=== PATIENT | male | born 1950 | race Caucasian/White ===

== ENCOUNTER 2023-06-19 09:15 | Outpatient (CLI) | payer OTHER, SELFPAY ==
--- OUTSIDE RECORDS SUMMARY | 2023-06-19 09:25 | XMS_ITS | Continuity of Care Document ---
Author Name [facility] Organization [facility] Care Team Providers Care Electrical Designer Name Role Phone [facility] Unavailable Unavailable Problems Combined list of problems from Department of Defense and Veterans Affairs facilities. It does not include entries that were removed or entered in error. Problem Status Onset Date Problem Type Date of Resolution Comments Source Aortic aneurysm Active Condition [facility] Aortic stenosis Active Condition Jul 19, 2021 Entered By: FELIX SALVADOR Comment: Aortic valve replacement December 28, 2020 [facility] Bradycardia (SNOMED CT 56835194) Active Condition [facility] Chronic ischemic heart disease Active Condition [facility] Diverticular disease (SNOMED CT 810788086) Active Condition [facility] ([facility]) Erectile dysfunction (SNOMED CT 788571103) Active Condition [facility] Essential hypertension Active Condition [facility] Gastroesophageal reflux disease (SNOMED CT 659492992) Active Condition Jun 26, 2011 Entered By: JUSTO KIM Comment: uses omeprazole [facility] ([facility]) Hearing loss Active Condition [facility] History of polyp of colon Active Condition [facility] History of tissue graft aortic valve replacement Active Condition Jun 04, 2023 Entered By: GUIDO MAIN Comment: also had 1 vessel coronary artery bypass with valve replacement [facility] Hypercholesterolemia (SNOMED CT 66523205) Active Condition [place] [facility] Incisional hernia Active Condition [facility] Polyp of colon Active Condition [facility] Colonic Polyps Inactive Condition 09/10/2013 Apr 12, 2008 Entered By: CINDY OSBORN Comment: polypectomies in 2005. Benign [facility] ([facility]) Decreased Libido (ICD-9-CM 799.81) Inactive Condition 06/26/2011 [place] [facility] Male erectile disorder Inactive Condition 09/10/2013 [facility] ([facility]) Tinnitus Inactive Condition 09/10/2013 [facility] ([facility]) Diagnosis: ICD-10-CM E78.2 Mixed hyperlipidemia Active Diagnosis [facility] Diagnosis: ICD-10-CM Z23 Encounter for immunization Active Diagnosis [facility] Diagnosis: ICD-10-CM F52.21 Male erectile disorder Active Diagnosis [facility] Medications Combined list of outpatient medications from Department of Defense and Veterans Affairs facilities.Medications provided include 1) outpatient medications from the last 15 months, and 2) patient-reported medications. Medication Details Route Status Patient Instructions Prescription Expires Prescription Number Last Dispense Date Ordering Provider Order Date Source ASPIRIN 81MG TAB,EC TAKE ONE TABLET BY MOUTH EVERY DAY ORALLY ACTIVE JUSTO KIM 2011 [facility]) COENZYME Q10 CAP/TAB TAKE ONE TABLET BY MOUTH DAILY ORALLY ACTIVE Robles RICHEY 2015 [facility] EZETIMIBE 10MG TAB TAKE ONE TABLET BY MOUTH EVERY DAY FOR CHOLESTE ROL ORALLY ACTIVE 04/25/2024 [id number] 3 ETELVINA,Holger NNE 2022 [facility] EZETIMIBE 10MG TAB TAKE ONE TABLET BY MOUTH EVERY DAY FOR CHOLESTE ROL ORALLY DISCONT INUED (EDIT) 01/25/2024 [id number] 3 Nay BUCK 2022 [facility] EZETIMIBE 10MG TAB TAKE ONE TABLET BY MOUTH EVERY DAY FOR CHOLESTE ROL ORALLY DISCONT INUED 11/01/2023 [id number] 3 Nay BUCK 2022 [facility] FISH OIL 1000MG (500MG DHA/EPA) CAP,ORAL TAKE 1 CAPSULE BY MOUTH EVERY DAY ORALLY ACTIVE CHICHO ZAPATA 2013 [facility] FUROSEMIDE 20MG TAB TAKE ONE TABLET BY MOUTH EVERY DAY NEEDED ORALLY ACTIVE ETELVINA,Holger NNE 2022 [facility] GLUCOSAMINE CAP/TAB TAKE 1500 MG BY MOUTH EVERY DAY ORALLY ACTIVE CHICHO ZAPATA 2013 [facility] METOPROLOL TARTRATE 25MG TAB TAKE ONE TABLET BY MOUTH TWICE A DAY FOR BLOOD PRESSURE ORALLY ACTIVE 04/26/2024 [id number] 3 ETELVINA,Holger NNE 2022 [facility] METOPROLOL TARTRATE 25MG TAB TAKE ONE TABLET BY MOUTH TWICE A DAY FOR BLOOD PRESSURE ORALLY DISCONT INUED 05/23/2023 [id number] 3 Nay BUCK 2021 [facility] METOPROLOL TARTRATE 50MG TAB TAKE ONE-HALF TABLET BY MOUTH TWICE A DAY FOR BLOOD PRESSURE ORALLY DISCONT INUED (EDIT) 05/23/2023 [id number] 2 CANDICE SALVADOR 2021 [facility] OMEPRAZOLE 20MG CAP,EC TAKE ONE CAPSULE BY MOUTH EVERY MORNING ON AN EMPTY STOMACH, AT LEAST 30 MINUTES PRIOR TO A MEAL TO DECREASE STOMACH ACID ORALLY ACTIVE 07/21/2023 [id number] 4 ETELVINA,Holger NNE 2022 [facility] OMEPRAZOLE 20MG CAP,EC TAKE ONE CAPSULE BY MOUTH EVERY MORNING ON AN EMPTY STOMACH, AT LEAST 30 MINUTES PRIOR TO A MEAL TO DECREASE STOMACH ACID ORALLY DISCONT INUED 07/20/2022 [id number] 3 CANDICE SALVADOR 2021 [facility] ROSUVASTATI N CA 40MG TAB TAKE ONE TABLET BY MOUTH EVERY DAY ORALLY ACTIVE 07/21/2023 [id number] 3 ETELVINA,Holger NNE 2022 [facility] ROSUVASTATI N CA 40MG TAB TAKE ONE TABLET BY MOUTH EVERY DAY ORALLY DISCONT INUED 07/20/2022 [id number] 3 CANDICE SALVADOR 2021 [facility] SILDENAFIL CITRATE 100MG TAB TAKE ONE TABLET BY MOUTH EVERY DAY NEEDED FOR ERECTILE DYSFUNCT ION ORALLY ACTIVE 07/21/2023 [id number] 3 ETELVINA,A NNE 2022 [facility] Allergies, Adverse Reactions, Alerts Combined list of allergies from Department of Defense and Veterans Affairs facilities. It does not include entries that were removed or entered in error. Substance Category Reaction Severity Reaction type Status Date Reported Comments Source [facility] Propensity to adverse reactions to drug (finding) active 8 [facility] Immunizations Combined list of available immunizations from the Department of Defense and Veterans Affairs facilities. Immunization Series Date Given Administered By Site Reaction Lot Number CVX Code Drug Nail Cutter Status Comments Source INFLUENZA VACCINE, QUADRIVALENT, ADJUVANTED 2022 205 complet ed [facility] COVID-19 (PFIZER), MRNA, LNP-S, PF, LOKI-SUCROSE, 30 MCG/0.3 ML (AGES 12+ YEARS) 1 2022 FLATNESS,SYED [place] M LEFT DELTO ID [id number] 309 complet ed [facility] COVID-19 (Feedtrace), MRNA, LNP-S, BIVALENT BOOSTER, PF, 30 MCG/0.3 ML DOSE 1 2021 300 complet ed PFR; [id number]; 3 [facility] PNEUMOCOCCAL CONJUGATE PCV20, POLYSACCHARID E [id number] CONJUGATE, ADJUVANT, PF 2021 216 complet ed [facility] INFLUENZA, INJECTABLE, QUADRIVALENT, PRESERVATIVE FREE 2021 150 complet ed [facility] COVID-19 (PFIZER), MRNA, LNP-S, PF, 30 MCG/0.3 ML DOSE 3 2020 208 complet ed PFR; [id number]; 2 [facility] INFLUENZA, INJECTABLE, QUADRIVALENT, PRESERVATIVE FREE 2020 150 complet ed [facility] COVID-19 (Feedtrace), MRNA, LNP-S, PF, 30 MCG/0.3 ML DOSE 2 2020 208 complet ed PFR; [id number]; 1 [facility] COVID-19 (Feedtrace), MRNA, LNP-S, PF, 30 MCG/0.3 ML DOSE 1 2020 208 complet ed PFR; [id number]; 1 [facility] INFLUENZA, UNSPECIFIED FORMULATION 2019 88 complet ed [facility] INFLUENZA VACCINE, QUADRIVALENT, ADJUVANTED 2019 205 complet ed [facility] ZOSTER RECOMBINANT 2 2019 187 complet ed [facility] ZOSTER RECOMBINANT 1 2019 187 complet ed [facility] INFLUENZA, INJECTABLE, QUADRIVALENT, PRESERVATIVE FREE 2018 150 complet ed [facility] INFLUENZA, SEASONAL, INJECTABLE 2018 141 complet ed [facility] INFLUENZA, INJECTABLE, QUADRIVALENT, PRESERVATIVE FREE 2017 150 complet ed Partner: [facility]. Administe red by: [facility] Clinician (NPI=Not Provided) . Partner 3 Lot#: [id number] Mfr: Sanofi Pasteur [facility] INFLUENZA, HIGH DOSE SEASONAL 2016 135 complet ed [facility] INFLUENZA, HIGH DOSE SEASONAL 2015 135 complet ed [facility] INFLUENZA, HIGH DOSE SEASONAL 2015 135 complet ed [facility] PNEUMOCOCCAL CONJUGATE PCV 13 2015 133 complet ed [facility] INFLUENZA, SEASONAL, INJECTABLE 2014 141 complet ed [facility] INFLUENZA, SEASONAL, INJECTABLE 2013 141 complet ed [facility] PNEUMOCOCCAL, UNSPECIFIED FORMULATION 2013 109 complet ed merk and co [id number] [facility] ([facility]) TDAP 2013 115 complet ed glaxosmit hkline [id number] 08/28/15 [facility] ([facility]) PNEUMOCOCCAL POLYSACCHARID E PPV23 2013 33 complet ed [facility] INFLUENZA, UNSPECIFIED FORMULATION 2012 88 complet ed [facility] ([facility]) INFLUENZA, UNSPECIFIED FORMULATION 2011 88 complet ed [facility] ([facility]) INFLUENZA, UNSPECIFIED FORMULATION 2010 88 complet ed [facility] ([facility]) INFLUENZA, UNSPECIFIED FORMULATION 2009 88 complet ed [facility] HEP A, ADULT 2009 52 complet ed [facility] ([facility]) ZOSTER LIVE 2009 121 complet ed [employer] Lot #[id number] Exp. 06/04/2010 [facility] ([facility]) HEP A, ADULT 2009 52 complet ed [facility] ([facility]) INFLUENZA, UNSPECIFIED FORMULATION 2009 [place] RN 88 complet ed [facility] ([facility]) NOVEL INFLUENZA-H1N 1-09, ALL FORMULATIONS 2009 128 complet ed Nov[employer]is [facility] ([facility]) TD (ADULT), 2 LF TETANUS TOXOID, PRESERVATIVE FREE, ADSORBED 2005 09 complet ed [facility] TD(ADULT) UNSPECIFIED FORMULATION 2004 139 complet ed [facility] Results Combined list of recent chemistry, hematology and other laboratory results from Department of Defense and Veterans Affairs, ranging from 15 months to all on record, depending upon the facility. Order Name Results Value Reference Range Date Interpretation Specimen Comments Source ALT/SGPT ALANINE AMINOTRANSF ERASE [ENZYMATIC ACTIVITY/VO LUME] IN SERUM OR PLASMA 19 <55 - 55 07/19 Specimen Type: PLASMA No comment entered. Ordering Provider: THIERRY SALVADOR Report Released Date/Time: Jul 19, 2021 10:51 AM Reporting Lab: [facility] [phone] Performing Lab: [facility] [address] [facility] AST/SGOT ASPARTATE AMINOTRANSF ERASE [ENZYMATIC ACTIVITY/VO LUME] IN SERUM OR PLASMA 19 <34 - 34 07/19 Specimen Type: PLASMA No comment entered. Ordering Provider: THIERRY SALVADOR Report Released Date/Time: Jul 19, 2021 10:51 AM Reporting Lab: [facility] [phone] Performing Lab: [facility] [address] [facility] ALKALINE PHOSPHATAS E ALKALINE PHOSPHATASE [ENZYMATIC ACTIVITY/VO LUME] IN SERUM OR PLASMA 78 40 - 150 07/19 Specimen Type: PLASMA No comment entered. Ordering Provider: THIERRY SALVADOR Report Released Date/Time: Jul 19, 2021 10:51 AM Reporting Lab: [facility] [address] Performing Lab: [facility] [address] [facility] PSA PROSTATE SPECIFIC AG [MASS/VOLUM E] IN SERUM OR PLASMA 2.62 <4.00 - 4.00 07/19 Specimen Type: SERUM No comment entered. Ordering Provider: THIERRY SALVADOR Report Released Date/Time: Jul 19, 2021 10:51 AM Reporting Lab: [facility] [address] Performing Lab: [facility] [address] [facility] LIPID PANEL,NON- FASTING CHOLESTEROL [MASS/VOLUM E] IN SERUM OR PLASMA 164 <199 - 199 07/19 Specimen Type: PLASMA No comment entered. Ordering Provider: THIERRY SALVADOR Report Released Date/Time: Jul 19, 2021 10:51 AM Reporting Lab: [facility] [address] Performing Lab: [facility] [address] [facility] LIPID PANEL,NON- FASTING CHOLESTEROL IN HDL [MASS/VOLUM E] IN SERUM OR PLASMA 51 40 07/19 Specimen Type: PLASMA No comment entered. Ordering Provider: THIERRY SALVADOR Report Released Date/Time: Jul 19, 2021 10:51 AM Reporting Lab: [facility] [address] Performing Lab: [facility] [address] [facility] LIPID PANEL,NON- FASTING CHOLESTEROL IN LDL [MASS/VOLUM E] IN SERUM OR PLASMA BY CALCULATION 88 <99 - 99 07/19 Specimen Type: PLASMA No comment entered. Ordering Provider: THIERRY SALVADOR Report Released Date/Time: Jul 19, 2021 10:51 AM Reporting Lab: [facility] [address] Performing Lab: [facility] [address] [facility] LIPID PANEL,NON- FASTING CHOLESTEROL IN VLDL [MASS/VOLUM E] IN SERUM OR PLASMA BY CALCULATION 25 <29 - 29 07/19 Specimen Type: PLASMA No comment entered. Ordering Provider: THIERRY SALVADOR Report Released Date/Time: Jul 19, 2021 10:51 AM Reporting Lab: [facility] [address] Performing Lab: [facility] [address] [facility] LIPID PANEL,NON- FASTING CHOLESTEROL NON HDL [MASS/VOLUM E] IN SERUM OR PLASMA 113 <129 - 129 07/19 Specimen Type: PLASMA No comment entered. Ordering Provider: THIERRY SALVADOR Report Released Date/Time: Jul 19, 2021 10:51 AM Reporting Lab: [facility] [address] Performing Lab: [facility] [address] [facility] LIPID PANEL,NON- FASTING TRIGLYCERID E [MASS/VOLUM E] IN SERUM OR PLASMA 123 <149 - 149 07/19 Specimen Type: PLASMA No comment entered. Ordering Provider: THIERRY SALVADOR Report Released Date/Time: Jul 19, 2021 10:51 AM Reporting Lab: [facility] [address] Performing Lab: [facility] [address] [facility] BASIC METABOLIC PANEL+MG CREATININE [MASS/VOLUM E] IN SERUM OR PLASMA 1.0 0.7 - 1.2 07/19 Specimen Type: PLASMA No comment entered. Ordering Provider: THIERRY SALVADOR Report Released Date/Time: Jul 19, 2021 10:51 AM Reporting Lab: [facility] [address] Performing Lab: [facility] [address] [facility] BASIC METABOLIC PANEL+MG UREA NITROGEN [MASS/VOLUM E] IN SERUM OR PLASMA 20 8 - 26 07/19 Specimen Type: PLASMA No comment entered. Ordering Provider: THIERRY SALVADOR Report Released Date/Time: Jul 19, 2021 10:51 AM Reporting Lab: [facility] [address] Performing Lab: [facility] [address] [facility] BASIC METABOLIC PANEL+MG GLUCOSE [MASS/VOLUM E] IN SERUM OR PLASMA 91 74 - 100 07/19 Specimen Type: PLASMA No comment entered. Ordering Provider: THIERRY SALVADOR Report Released Date/Time: Jul 19, 2021 10:51 AM Reporting Lab: [facility] [address] Performing Lab: [facility] [address] [facility] BASIC METABOLIC PANEL+MG SODIUM [MOLES/VOLU ME] IN SERUM OR PLASMA 138 136 - 145 07/19 Specimen Type: PLASMA No comment entered. Ordering Provider: THIERRY SALVADOR Report Released Date/Time: Jul 19, 2021 10:51 AM Reporting Lab: [facility] [address] Performing Lab: [facility] [address] [facility] BASIC METABOLIC PANEL+MG POTASSIUM [MOLES/VOLU ME] IN SERUM OR PLASMA 4.6 3.5 - 5.1 07/19 Specimen Type: PLASMA No comment entered. Ordering Provider: THIERRY SALVADOR Report Released Date/Time: Jul 19, 2021 10:51 AM Reporting Lab: [facility] [address] Performing Lab: [facility] [address] [facility] BASIC METABOLIC PANEL+MG CHLORIDE [MOLES/VOLU ME] IN SERUM OR PLASMA 105 98 - 107 07/19 Specimen Type: PLASMA No comment entered. Ordering Provider: THIERRY SALVADOR Report Released Date/Time: Jul 19, 2021 10:51 AM Reporting Lab: [facility] [address] Performing Lab: [facility] [address] [facility] BASIC METABOLIC PANEL+MG CARBON DIOXIDE, TOTAL [MOLES/VOLU ME] IN SERUM OR PLASMA 25 22 - 29 07/19 Specimen Type: PLASMA No comment entered. Ordering Provider: THIERRY SALVADOR Report Released Date/Time: Jul 19, 2021 10:51 AM Reporting Lab: [facility] [address] Performing Lab: [facility] [address] [facility] BASIC METABOLIC PANEL+MG CALCIUM [MASS/VOLUM E] IN SERUM OR PLASMA 9.5 8.4 - 10.2 07/19 Specimen Type: PLASMA No comment entered. Ordering Provider: THIERRY SALVADOR Report Released Date/Time: Jul 19, 2021 10:51 AM Reporting Lab: [facility] [address] Performing Lab: [facility] [address] [facility] BASIC METABOLIC PANEL+MG MAGNESIUM [MASS/VOLUM E] IN SERUM OR PLASMA 2.1 1.6 - 2.6 07/19 Specimen Type: PLASMA No comment entered. Ordering Provider: THIERRY SALVADOR Report Released Date/Time: Jul 19, 2021 10:51 AM Reporting Lab: [facility] [address] Performing Lab: [facility] [address] [facility] BASIC METABOLIC PANEL+MG ANION GAP IN SERUM OR PLASMA 8 5 - 15 07/19 Specimen Type: PLASMA No comment entered. Ordering Provider: THIERRY SALVADOR Report Released Date/Time: Jul 19, 2021 10:51 AM Reporting Lab: [facility] [address] Performing Lab: [facility] [address] [facility] BASIC METABOLIC PANEL+MG GLOMERULAR FILTRATION RATE/1.73 SQ M.PREDICTED [VOLUME RATE/AREA] IN SERUM, PLASMA OR BLOOD BY CREATININE- BASED FORMULA (CKD-EPI) 73 60 07/19 Specimen Type: PLASMA No comment entered. Ordering Provider: THIERRY SALVADOR Report Released Date/Time: Jul 19, 2021 10:51 AM Reporting Lab: [facility] [address] Performing Lab: [facility] [address] [facility] Vital Signs Combined list of inpatient and outpatient Vital Signs from Department of Defense and Veterans Affairs, ranging from 12 months to all on record, depending upon the facility. Vital Sign Value Date Comments Source SYSTOLIC BLOOD PRESSURE 128 07/20/2022 09:49:22 [facility] DIASTOLIC BLOOD PRESSURE 81 07/20/2022 09:49:22 [facility] PULSE OXIMETRY 97% 07/20/2022 09:49:22 [facility] WEIGHT 271.1 07/20/2022 09:49:22 [facility] BMI 36kg/m2 07/20/2022 09:49:22 [facility] PAIN 0 07/20/2022 09:49:22 [facility] HEIGHT 73 07/20/2022 09:49:22 [facility] TEMPERATURE 97 07/20/2022 09:49:22 [facility] PULSE 54 07/20/2022 09:49:22 [facility] RESPIRATION 16 07/20/2022 09:49:22 [facility] Encounters Combined list of: 1) Encounters from [facility] facilities [facility] 2) Encounters from the Department of [facility] facilities going back up to 280 months. Location Location Details Encounter Type Encounter Number Reason For Visit Attending Provider ADM Date DC Date Status Disposition Source [place] [facility] Outpatient Encounter [id number] 02/23 [facility] [place] [facility] Outpatient Encounter [id number] 03/30 [facility] [place] [facility] Outpatient Encounter [id number] 04/10 [facility] [place] [place] [id number] Diagnos is: ICD-10- CM Z23 Encount er for immuniz ation<b r/> ELVER DOSS 05/02 [facility] [place] [facility] Outpatient Encounter [id number] 05/27 [facility] [place] [facility] Outpatient Encounter [id number] 07/20 [facility] OFFICE O/P EST HI 40-54 MIN [id number] Diagnos is: ICD-10- CM F52.21 Male erectil e disorde r
CHIP MAIN NE 07/20 [facility] [place] [facility] Outpatient Encounter [id number] 09/06 [facility] [place] [facility] Outpatient Encounter [id number] 10/04 [facility] [place] [facility] Outpatient Encounter [id number] 10/31 [place] [facility] [place] [facility] Outpatient Encounter [id number] 03/15 [facility] ADMN SARSCOV2 VACC 1 DOSE [id number] Diagnos is: ICD-10- CM Z23 Encount er for immuniz ation<b r/> FLATNESS,K RISTIN M 03/22 [facility] [place] [facility] Outpatient Encounter [id number] 04/25 [facility] [place] [facility] Outpatient Encounter [id number] 04/26 [facility] [place] [facility] Outpatient Encounter [id number] 05/23 [facility] Outpatient Encounter [id number] Diagnos is: ICD-10- CM E78.2 Mixed hyperli pidemia
ETELVINAAN NE 06/04 [facility] Social History Combined list of available smoking, tobacco, and other social history from Department of Defense and Veterans Affairs facilities. Social History Type Response Date Comment Sourc e Tobacco smoking status [place] VA-TOBACCO QUIT 15 YRS OR MORE 07/20/2022 [facility] History of tobacco use VA-TOBACCO FORMER USER 07/20/2022 [facility] History of tobacco use VA-TOBACCO FORMER USER 07/19/2021 [facility] History of tobacco use VA-TOBACCO FORMER USER 07/13/2020 [facility] History of tobacco use AR-TOBACCO QUIT 1 5 YRS OR MORE 05/28/2019 [facility] History of tobacco use VA-TOBACCO FORMER USER 07/11/2018 [facility] History of tobacco use FORMER TOBACCO US ER 7Y OR GREATER 08/23/2017 [facility] History of tobacco use FORMER TOBACCO US ER 7Y OR GREATER 08/16/2016 [facility] History of tobacco use LIFETIME NON-TOBACCO USER 6 [facility] History of tobacco use FORMER TOBACCO US ER 7Y OR GREATER 08/25/2014 [facility] History of tobacco use FORMER TOBACCO US ER 7Y OR GREATER 09/10/2013 [facility] History of tobacco use FORMER TOBACCO US ER 7Y OR GREATER 04/12/2008 [facility] ([facility]) Plan of Care List of future care activities from [facility] facilities. Additional future care activities may be listed in the Assessment and Plan section. Date/Time Care Activity Care Activity Detail Facili ty 06/24/2023 AMBULATORY - MEDICINE AMBULATORY - MEDICI NE [facility] Advance Directives List of completed, amended, or rescinded Advance Directives on record at [facility] facilities. An actual copy of the Directive is not included. Date Advance Directive Provider Source 07/15/2008 ADVANCE DIRECTIVE DEBRA SR [facility] 07/15/2008 [place] DIRECT[place] [facility] 06/28/2008 ADVANCE DIRECTIVE DISCUSSION [place] [facility]
--- OUTSIDE RECORDS SUMMARY | 2023-06-19 09:25 | XMS_ITS | Encounter Summary ---
Author Name [facility] Organization [facility] Address [address] [place] [address] Support Name Relationship Address Phone JUSTO BERTRAND Next of Kin [phone] [facility] [phone] Insurance Providers: All historical and current Section Date Range: From patient's date of to the date document was created. This section includes the names of all active insurance providers for the patient. Insurance Provider Type of Coverage Plan Name Start of Policy Coverage End of Policy Coverage Group Number Member ID Insurance Provider's Telephone Number Policy Andrade's Name Patient's Relationship to Policy Andrade BCBS [facility] (WNR) MEDICARE ADVANTAGE [employer] (WNR) May 27, 2022 [id number] [phone] [place] PATIENT [employer] (WNR) MEDICARE ADVANTAGE [employer] (WNR) Oct 26, 2015 [id number] [place] PATIENT Selected Encounter This section includes the information on record at [place] for the Encounter. Date/Time Encounter Type Encounter Description Reason Pro vider Source Jul 20, 2022 12:00 AM Outpatient Encounter EVENT (HISTORICAL) IHE Encounter Template Text not used by [facility] Advance Directives: All historical and current Section Date Range: From patient's date of to the date document was created. This section includes ALL of a patient's completed or amended [place] Advance and Rescinded Directives. The entries below indicate that a directive exists for the patient, but an actual copy is not included with this document. The data comes from all [place] facilities. Date Advance Directives Provider Source Jul 15, 2008 ADVANCE DIRECTIVE DEBRA SR [facility] Jul 15, 2008 ADVANCE DIRECTIVE DISCUSSION ORIN,ADOL [facility] Jun 28, 2008 ADVANCE DIRECTIVE DISCUSSION [place] [facility]
--- OUTSIDE RECORDS SUMMARY | 2023-06-19 09:25 | XMS_ITS | Encounter Summary ---
Author Name [facility] Organization [facility] Address [address] [place] [address] Support Name Relationship Address Phone JUSTO BERTRAND Next of Kin [phone] [facility] [address] Insurance Providers: [...] Name Patient's Relationship to Policy Andrade BCBS [facility] (WNR) MEDICARE ADVANTAGE [facility] (WNR) May 27, 2022 [id number] [phone] [place] PATIENT [employer] [facility] (WNR) MEDICARE ADVANTAGE [facility] (WNR) Oct 26, 2015 [id number] [place] PATIENT Selected Encounter This section includes the information on record at [place] for the Encounter. Date/Time Encounter Type Encounter Description Reason Pro vider Source October 04, 2022 12:06 AM Outpatient Encounter TELEPHONE PRIMARY CARE E Encounter Template Text not used by [place] Plan of Treatment: Future Appointments (+ 6 months) and Future Tests (+/- 45 days) The Plan of Treatment section includes future care activities for the patient from all [place] treatmentfacilities. This section includes future appointments and future orders which are active, pending or scheduled. Future Appointments This section includes appointments that were scheduled to occur 6 months from the date of the Encounter, up to a maximum of 20 appointments. The data comes from all [place] treatment facilities. Appointment Date/Time Appointment Type Appointme nt Facility Name Mar 22, 2023 09:45 AM AMBULATORY - MEDICINE [facility] Advance Directives: All historical and current Section Date Range: From patient's date of to the date document was created. This section includes ALL of a patient's completed or amended [place] Advance and Rescinded Directives. The entries below indicate that a directive exists for the patient, but an actual copy is not included with this document. The data comes from all [place] facilities. Date Advance Directives Provider Source Jul 15, 2008 ADVANCE DIRECTIVE DEBRA SR [facility] Jul 15, 2008 ADVANCE DIRECTIVE DISCUSSION [place] [facility] Jun 28, 2008 ADVANCE DIRECTIVE DISCUSSION [place] [facility] Encounter Notes: All associated encounter notes This section contains the clinical notes associated to the Encounter. Date/Time Encounter Note(s) Provider Source October 04, 2022 12:06 AM PRIMARY CARE NONVA NOTE: LOCAL TITLE: CO-MANAGED CARE NOTE STANDARD TITLE: PRIMARY CARE NONVA NOTE DATE OF NOTE: OCTOBER 04, 2022@00:06 ENTRY DATE: OCTOBER 04, 2022@00:07:02 AUTHOR: SOFY MADDOX EXP COSIGNER: URGENCY: STATUS: COMPLETED CO-MANAGED CARE NOTE Has ADDENDA The following prescriptions have been received in co-managed care. Prescriptions are generally reviewed in the order received. A separate co-managed care note will be entered and alerted to the PCP once reviewed if records have been received. If additional records are needed or formulary issues need to be addressed co-managed care will attempt to work with the patient's local clinic to resolve those issues. Prescription dated: 09/06/22 Date prescription received: 09/06/22 Name of prescription/s received: ezetimibe Records received: No Faxed for additional information: 10/03/22 /ruth/ Sofy Maddox LPN Co-Reservation Manager Signed: 10/04/2022 00:07 10/30/2022 ADDENDUM STATUS: COMPLETED Records received at [facility] and forwarded to Co-managed care case management coordinator. /ruth/ DECLAN GONZALES Advanced Manager Merchandise Signed: 10/30/2022 15:30 SOFY MADDOX [facility]
--- OUTSIDE RECORDS SUMMARY | 2023-06-19 09:25 | XMS_ITS | Encounter Summary ---
Author Name [facility] Address [address] [place] [address] Support Name Relationship Address Phone JUSTO BERTRAND Next of Kin [phone] [facility] [address] Insurance Providers: All historical [...] Name Patient's Relationship to Policy Andrade BCBS [facility] (WNR) MEDICARE ADVANTAGE [facility] (WNR) May 27, 2022 [id number] [phone] LAIS PATIENT [employer] [facility] (WNR) MEDICARE ADVANTAGE [facility] (WNR) Oct 26, 2015 [id number] [place] PATIENT Selected Encounter This section includes the information on record at [place] for the Encounter. Date/Time Encounter Type Encounter Description Reason Pro vider Source Sep 06, 2022 10:28 AM Outpatient Encounter COMMUNITY CARE CONSULT [facility] Encounter Template Text not used by [place] Advance Directives: All historical and current Section Date Range: From patient's date of to the date document was created. This section includes ALL of a patient's completed or amended [place] Advance and Rescinded Directives. The entries below indicate that a directive exists for the patient, but an actual copy is not included with this document. The data comes from all [place] facilities. Date Advance Directives Provider Source Jul 15, 2008 ADVANCE DIRECTIVE DEBRA SR [facility] Jul 15, 2008 ADVANCE DIRECTIVE DISCUSSION [place] [facility] Jun 28, 2008 ADVANCE DIRECTIVE DISCUSSION [place] [facility] Encounter Notes: All associated encounter notes This section contains the clinical notes associated to the Encounter. Date/Time Encounter Note(s) Provider Source Sep 06, 2022 10:28 AM PHARMACY NOTE: LOCAL TITLE: PHARMACY NON [place] CARE MEDICATIONS STANDARD TITLE: PHARMACY NOTE DATE OF NOTE: SEP 06, 2022@10:28 ENTRY DATE: SEP 06, 2022@10:28:22 AUTHOR: MARVEL SMITH EXP COSIGNER: URGENCY: STATUS: COMPLETED [facility] RECEIVED electronic prescription(s) (eRX(s)) from NON-[place] Provider: JASWINDER PAGAN Date eRX received: Aug Outside (NON-VA) provider not authorized to write for prescription(s) through [place] pharmacy. Prescription request REDIRECTED via FAX to one of the following for review: [X][facility] (Dual) Care [ ]Other: [ ] [facility] ([facility]) [ ] [facility] [ ] [facility] [ ] [facility] eRx Reference #: eRx Prescription Information: eRx Drug: ezetimibe 10 mg tablet (ZETIA) eRx Qty: 90 eRx Refills: 3 eRx Days Supply: /ruth/ MARVEL SMITH pharmacist Signed: 09/06/2022 10:[address] [facility]
--- OUTSIDE RECORDS SUMMARY | 2023-06-19 09:25 | XMS_ITS | Encounter Summary ---
Author Name [facility] of Vetera Affairs Organization [facility] of Veter[facility] ns Affairs Address [address] [place] [address] Support Name Relationship Address Phone JUSTO BERTRAND Next of Kin [id number] [facility] [place] CHAVE[place] [id number] Insurance Providers: All historical and current [...] Andrade's Name Patient's Relationship to Policy Andrade [facility] (WNR) MEDICARE ADVANTAGE [facility] ([facility]) May 27, 2022 [id number] [phone] NASH PATIENT [employer] [facility] ([place]NR) MEDICARE ADVANTAGE [facility] ([facility]) Oct 26, 2015 [id number] NASH PATIENT Selected Encounter This section includes the information on record at [place] for the Encounter. Date/Time Encounter Type Encounter Description Reason Provider Source Jul 20, 2022 10:00 AM OFFICE O/P EST HI 40-54 MIN PRIMARY CARE/MEDICINE ICD-10-CM F52.21 Male erectile disorder GUIDO MAIN Encounter Template Text not used by [place] Assessments - Encounter Diagnoses This section includes the primary and secondary diagnoses documented for the Encounter. Date/Time Primary/Secondary Diagnosis Diagnosis Name Provider Source Jul 21, 2022 05:35 PM PRIMARY Male erectile disorder GUIDO MAIN CBKELLEY Jul 21, 2022 05:35 PM SECONDARY Chronic ischemic heart disease, unspecified GUIDO MAIN Jul 21, 2022 05:35 PM SECONDARY Contact with and exposure to other hazardous substances ETELVINA,GUIDO [facility]EN [facility] Jul 21, 2022 05:35 PM SECONDARY Encounter for general adult medical exam w abnormal findings ETELVINA,GUIDO ADEN [facility] Jul 21, 2022 05:35 PM SECONDARY Essential (primary) hypertension ETELVINA,GUIDO ADEN [facility] Jul 21, 2022 05:35 PM SECONDARY Gastro-esophageal reflux disease without esophagitis ETELVINA,GUIDO ARTEAGA [facility] Jul 21, 2022 05:35 PM SECONDARY Incisional hernia without obstruction or gangrene ETELVINA,GUIDO ARTEAGA [facility] Jul 21, 2022 05:35 PM SECONDARY Personal history of colonic polyps ETELVINA,GUIDO [facility]EAGA [facility] Jul 21, 2022 05:35 PM SECONDARY Presence of other heart-valve replacement ETELVINA,GUIDO [facility]AG[facility] Jul 21, 2022 05:35 PM SECONDARY Pure hypercholesterolemia , unspecified ETELVINA,GUIDO PEREZVerna [facility] Jul 21, 2022 05:35 PM SECONDARY Unspecified sensorineural hearing loss ETELVINA,GUIDO DARIAN ADEN [facility] Vital Signs: All taken on the encounter date This section contains inpatient and outpatient Vital Signs collected on the date of the Encounter. Date/Time Temperature Pulse Blood Pressure Respiratory Rate SP02 Pain Height Weight Body Mass Index Source Jul 20, 2022 09:49 AM 97 F 54 /min 128/81 mm[Hg] 16 /min 97 % 0 73 in 271.1 lb 36 DARIAN CRISTINA Social History: Smoking Status (Most current) and Tobacco Use (All prior to encounter date) This section includes the most current, and the historical, smoking and tobacco- related health factors from the [place] facility where the Encounter took place. Current Smoking Status This section includes the most current smoking, or tobacco-related health factor, from the [place] facility where the Encounter took place. Date/Time Current Smoking Status Comment [facility] itbeena Jul 20, 2022 10:00 AM VA-TOBACCO FORMER USER DARIAN CRISTINA Tobacco Use History This section includes a history of the smoking, or tobacco-related health factors, that were collected on or before the date of the Encounter. The data comes from the [place] facility where the Encounter took place. Date/Time Smoking Status/Tobacco Use Comment F acility Jul 20, 2022 10:00 AM VA-TOBACCO QUIT 15 YRS OR MORE [facility] Jul 19, 2021 10:30 AM VA-TOBACCO FORMER USER [facility] Jul 19, 2021 10:30 AM VA-TOBACCO QUIT 15 YRS OR MORE [facility] Jul 13, 2020 09:00 AM VA-TOBACCO FORMER USER [facility] Jul 13, 2020 09:00 AM VA-TOBACCO QUIT 15 YRS OR MORE [facility] May 28, 2019 10:14 AM VA-TOBACCO FORMER USER [facility] May 28, 2019 10:14 AM VA-TOBACCO QUIT 15 YRS OR MORE [facility] Jul 11, 2018 10:01 AM VA-TOBACCO FORMER USER [facility] Jul 11, 2018 10:01 AM VA-TOBACCO QUIT 15 YRS OR MORE [facility] Aug 23, 2017 08:39 AM FORMER TOBACCO USER 7Y OR GREATE R [facility] Aug 16, 2016 09:15 AM FORMER TOBACCO USER 7Y OR GREATE R [facility] Sep 01, 2015 08:29 AM LIFETIME NON-TOBACCO USER [facility] Aug 25, 2014 08:57 AM FORMER TOBACCO USER 7Y OR GREATE R [facility] Sep 10, 2013 10:00 AM FORMER TOBACCO USER 7Y OR GREATE R [facility] Advance Directives: All historical and current Section Date Range: From patient's date of to the date document was created. This section includes ALL of a patient's completed or amended [place] Advance and Rescinded Directives. The entries below indicate that a directive exists for the patient, but an actual copy is not included with this document. The data comes from all [place] facilities. Date Advance Directives Provider Source Jul 15, 2008 ADVANCE DIRECTIVE [place] SR [facility] Jul 15, 2008 ADVANCE DIRECTIVE DISCUSSION [place] [facility] Jun 28, 2008 ADVANCE DIRECTIVE DISCUSSION [place] [facility] Encounter Notes: All associated encounter notes This section contains the clinical notes associated to the Encounter. Date/Time Encounter Note(s) Provider Source Jul 20, 2022 10:20 AM PRIMARY CARE NOTE: LOCAL TITLE: [facility] PROGRESS NOTE - DARIAN MARKIE STANDARD TITLE: PRIMARY CARE NOTE DATE OF NOTE: JUL 20, 2022@10:20 ENTRY DATE: JUL 20, 2022@10:21:03 AUTHOR: GUIDO MAINIGNER: URGENCY: STATUS: COMPLETED Assessment and Plan: #. Erectile dysfunction. Renewed sildenafil 100 mg daily as needed. #. Hyperlipidemia. Managed on rosuvastatin 40 mg daily. #. Hypertension. Well-controlled on metoprolol tartrate 25 mg twice daily. #. GERD. Symptoms well controlled on omeprazole 20 mg daily. #. Hearing loss. Chronic/stable. Has hearing aids that he wears occasionally. #. Chronic ischemic heart disease. Managed by non-VA agronomist through [facility]. Medically managed on metoprolol, aspirin and rosuvastatin. #. Presence of bioprosthetic aortic valve. This was placed in 2020. #. History of colon polyps. He had a colonoscopy 06/06/2022 at [facility]-- excerpt from result on JLV: - Preparation of the colon was fair. - One 2 mm polyp in the ascending colon, removed with a cold snare. Resected and retrieved. - Diverticulosis in the sigmoid colon. - The examination was otherwise normal on direct and retroflexion views. - Repeat colonoscopy in 3 years because the bowel preparation was suboptimal and for surveillance. - Need extended prep. #. Incisional hernia. Asymptomatic. Continue to monitor. Consider surgical consultation for increasing size and pain. #. Annual healthcare maintenance. Screenings/reminders done per nurse note and per below. Counseled on healthy eating and exercise. Return to clinic: 1 year for annual healthcare maintenance visit, and sooner as clinically needed Time documentation: 45 minutes total patient care time on the day of service, which included nursing and physician [id number] time with the patient (history/exam/discussion and counseling about concerns/reminders), reviewing records, ordering studies, and documenting in the medical record. (x ) Patient/Caregiver indicates readiness to learn, verbalizes understanding, agreement and satisfaction with the treatment plan. Patient/Caregiver doesn't have any further questions today. Nurse's notes reviewed from today. MEKHI BERTRAND is a 72 year old MALE here for annual healthcare maintenance visit and to follow-up on chronic conditions as noted above Co-managed care: Dr. Garcia at [place], [place] and Dr. Jolly at [facility] HPI: Had aortic valve surgery in 2020. This was done at [facility]. He has an incisional hernia, which is not bothersome. Has chronic/stable, intermittent chest discomfort since his aortic valve repair. No heart palpitations or shortness of breath. No lightheadedness. He requests a refill of his sildenafil. There has been no change to his medications by a non-VA provider. He has 2 other primary care providers as listed above. ROS: Gen: no fevers, no chills, no sweats, no fatigue, weight stable HEENT: no nasal congestion, no sore throat, no ear pain; has chronic tinnitus-- fluctuates; has some hearing loss--has hearing aids--uses occas. Neck: no pain CV: Occasional chest pain as noted in HPI, no heart palpitations, no lightheadedness, occas. leg swelling Respiratory: no shortness of breath, no cough Abdomen: no abdominal pain, no nausea, no vomiting, no constipation, no diarrhea : no urinary flow problem, no blood in the urine, no painful urination MSK: no back pain, no joint pain Neuro: no numbness/tingling, no headaches, no weakness Psych: no mood concerns Endo: no excessive thirst or urination Family/Social History: quit smoking in 1977--smoked 10 years, 1 PPD; 1 drink twice a week (wine) Active problems - Computerized Problem List is the source for the followin. Hypercholesterolemia (SNOMED CT 69105818) 2. Diverticular disease (SNOMED CT 502268734) 3. Gastroesophageal reflux disease (SNOMED CT 646007394) - uses omeprazole 4. Bradycardia (SNOMED CT 47498226) 5. Erectile dysfunction 6. Aortic stenosis - Aortic valve replacement December 28, 2020 7. Hearing loss 8. Aortic aneurysm 9. Chronic ischemic heart disease 10. Polyp of colon Allergies: SULFA DRUGS (Apr 01, 2008) Active and Recently Outpatient Medications (including Supplies): Active Outpatient Medications Status 1) METOPROLOL TARTRATE 25MG TAB TAKE ONE TABLET BY MOUTH ACTIVE TWICE A DAY FOR BLOOD PRESSURE 2) OMEPRAZOLE 20MG EC CAP TAKE ONE CAPSULE BY MOUTH ACTIVE EVERY MORNING ON AN EMPTY STOMACH, AT LEAST 30 MINUTES PRIOR TO A MEAL TO DECREASE STOMACH ACID 3) ROSUVASTATIN CA 40MG TAB TAKE ONE TABLET BY MOUTH ACTIVE EVERY DAY Renewed sildenafil 100 mg daily as needed (had and fallen off the list) Inactive Outpatient Medications Status 1) METOPROLOL TARTRATE 50MG TAB TAKE ONE-HALF TABLET BY DISCONTINUED MOUTH TWICE A DAY FOR BLOOD PRESSURE (EDIT) 2) METOPROLOL TARTRATE 50MG TAB TAKE ONE-HALF TABLET BY DISCONTINUED MOUTH TWICE A DAY FOR BLOOD PRESSURE Active Non-VA Medications Status 1) Non-VA ASPIRIN 81MG EC TAB 81 MG MOUTH EVERY DAY ACTIVE 2) Non-VA COENZYME Q10 60MG TAB/CAP 1 TABLET MOUTH DAILY ACTIVE 3) Non-VA FISH OIL 1000MG (500MG DHA/EPA) CAP 1000MG ACTIVE MOUTH EVERY DAY 4) Non-VA GLUCOSAMINE CAP/TAB 1500 MG MOUTH EVERY DAY ACTIVE 9 Total Medications MEDICATION RECONCILIATION Outpatient At this visit I have reviewed the medication list, and discussed relevant medications with the patient/surrogate. No Change EXAM: VS: Temp: 97 F [36.1 C] (07/20/2022 09:49) BP: 128/81 (07/20/2022 09:49) Pulse:54 (07/20/2022 09:49) Resp: 16 (07/20/2022 09:49) Pain: 0 (07/20/2022 09:49) Weight: WEIGHTS IN LAST 6 MONTHS: 271.1 (JUL 20, 2022@09:49:22) BMI: 35.8 Pulse Ox: 97% (07/20/2022 09:49) Gen: well-nourished, well-groomed, no acute distress HEENT: Normocephalic, Normal conjunctiva/sclera, no nasal drainage Respiratory: Normal respiratory effort, clear to auscultation bilaterally Cardiac: RRR, S1 and S2 normal, no murmur; no cyanosis; no lower extremity edema Abdomen: Has incisional hernia in the epigastric region which is soft and nontender, approximately 10 x 8 cm Skin: Warm, dry, no rashes on exposed skin Neuro: Alert and oriented ? 3 , normal gait Psych: Normal affect, normal thought processing and speech production Data/Labs: Recent labs reviewed from [facility] on [facility]--no concerns No data available Collection DT Specimen Test Name Result Units Ref Range 07/13/2020 09:30 BLOOD WBC 6.19 K/cmm 4.0 - 11.0 07/13/2020 09:30 BLOOD RBC 4.67 M/cmm 4.6 - 6.2 07/13/2020 09:30 BLOOD HGB 14.0 g/dL 13.5 - 17.9 07/13/2020 09:30 BLOOD HCT 44.7 % 41 - 54 07/13/2020 09:30 BLOOD MCV 95.7 fL 80 - 100 07/13/2020 09:30 BLOOD MCH 30.0 pg 27 - 33 07/13/2020 09:30 BLOOD MCHC 31.3 L g/dL 32.0 - 37.5 07/13/2020 09:30 BLOOD PLT 233 K/cmm 150 - 400 07/13/2020 09:30 BLOOD MPV 10.2 fL 7.4 - 10.4 07/21/2009 08:21 BLOOD NEUT 51.6 % 44 - 80 07/21/2009 08:21 BLOOD LYMPHS 30.8 % 13 - 44 07/21/2009 08:21 BLOOD MONO 13.4 % 2 - 14 07/21/2009 08:21 BLOOD EOSINO 3.4 % 0 - 8 07/21/2009 08:21 BLOOD BASO 0.8 % 0 - 2 07/13/2020 09:30 BLOOD RDW 12.4 % 11.5 - 14.5 07/21/2009 08:21 BLOOD ABS LYMPH 1.5 K/cmm 1.0 - 4.0 07/21/2009 08:21 BLOOD ABS MONO 0.7 K/cmm 0.1 - 1.0 07/21/2009 08:21 BLOOD ABS NEUT 2.6 K/cmm 2.0 - 7.7 07/21/2009 08:21 BLOOD ABS EOS 0.2 K/cmm 0 - 0.5 07/21/2009 08:21 BLOOD ABS BASO 0.0 K/cmm 0 - 0.2 Collection DT Specimen Test Name Result Units Ref Range 07/19/2021 10:57 PLASMA CHOLESTEROL 164 mg/dL Ref: <=199 07/19/2021 10:57 PLASMA .HDL 51 mg/dL Ref: >=40 07/19/2021 10:57 PLASMA LDL CALCULATION 88 mg/dL Ref: <=99 07/19/2021 10:57 PLASMA VLDL CALCULATION 25 mg/dL Ref: <=29 07/19/2021 10:57 PLASMA NON HDL CHOLESTER 113 mg/dL Ref: <=129 07/19/2021 10:57 PLASMA TRIG(NON FASTING) 123 mg/dL Ref: <=149 Collection DT Spec HGBA1C 07/15/2019 10:50 BLOOD 5.6 07/11/2018 10:27 BLOOD 5.8 Collection DT Specimen Test Name Result Units Ref Range 07/15/2019 10:50 PLASMA TSH 1.17 uIU/mL 0.35 - 4.94 07/11/2018 10:27 PLASMA!! TSH 1.45 uIU/mL 0.30 - 5.00 !! Indicates COMMENTS AVAILABLE...Refer to Interim Lab Report. SLT - Lab Tests Selected No data available for: CREATININE,UR RANDOM ALB/CREAT RATIO,UR MICROALBUMIN,UR PSA 2.62 SERUM (07/19/21 10:57) Follow Up Colonoscopy: Colonoscopy is due based on information available to this reminder. Prior/outside Colonoscopy results: one polyp--3 year f/u Date: May, ? Exact date is unknown Colonoscopy reminder set 3 years from JUL 20, 2022. Toxic Exposure Screening Follow-Up: /caregiver has health or medical concerns related to their concern of environmental exposure. Concern: chronic ischemic heart disease The following connections were provided to the [place]/caregiver: No connections needed at this time /ruth/ GUIDO MAIN M.D. Physician, Darian Aden [facility] Signed: 07/21/2022 17:36 GUIDO MAIN [facility] Jul 20, 2022 09:53 AM PRIMARY CARE NURSI NG NOTE: LOCAL TITLE: [facility]OC NURSING PROGRESS NOTE STANDARD TITLE: PRIMARY CARE NURSING NOTE DATE OF NOTE: JUL 20, 2022@09:53 ENTRY DATE: JUL 20, 2022@09:53:23 AUTHOR: ELIAN HERNANDEZ COSIGNER: URGENCY: STATUS: COMPLETED TYPE OF VISIT: Appointment Check In Type of appointment: In-person appointment REASON FOR VISIT: Annual Why is addressing this health concern important to the and their overall health? Annual physical Why does the want to be healthy? Exactly! ALLERGIES: SULFA DRUGS (Apr 01, 2008) VITAL SIGNS: Blood Pressure: 128/81 (07/20/2022 09:49) Pulse: 54 (07/20/2022 09:49) Respiration: 16 (07/20/2022 09:49) Temperature: 97 F [36.1 C] (07/20/2022 09:49) Weight: 271.1 lb [122.97 kg] (07/20/2022 09:49) Height: 73 in [185.4 cm] (07/20/2022 09:49) BMI: 35.8 O2 Sat: 97% (07/20/2022 09:49) Pain: 0 (07/20/2022 09:49) PAIN SCREEN: Patient is not having significant pain that they wish to discuss with their provider today. MEDICATION Active Outpatient Medications (including Supplies): METOPROLOL TARTRATE 25MG TAB TAKE ONE TABLET BY MOUTH ACTIVE TWICE A DAY FOR BLOOD PRESSURE OMEPRAZOLE 20MG EC CAP TAKE ONE CAPSULE BY MOUTH EVERY ACTIVE MORNING ON AN EMPTY STOMACH, AT LEAST 30 MINUTES PRIOR TO A MEAL TO DECREASE STOMACH ACID ROSUVASTATIN CA 40MG TAB TAKE ONE TABLET BY MOUTH EVERY ACTIVE DAY Non-VA ASPIRIN 81MG EC TAB 81 MG MOUTH EVERY DAY ACTIVE Non-VA COENZYME Q10 60MG TAB/CAP 1 TABLET MOUTH DAILY ACTIVE Non-VA FISH OIL 1000MG (500MG DHA/EPA) CAP 1000MG MOUTH ACTIVE EVERY DAY Non-VA GLUCOSAMINE CAP/TAB 1500 MG MOUTH EVERY DAY ACTIVE Toxic Exposure Screening: The [place]/caregiver was asked if they believe the experienced any toxic exposure(s), such as Airborne Hazards and Open Burn Pit, [place] War related exposures, Agent [place], Radiation, contaminated water at [place] or other such exposures, while serving in the [employer]. [place]/caregiver believes the [place] was exposed to the following while serving in the [employer] ( [employer] ): [place]: [place]/caregiver was made aware of educational resources that includes information on the Registry Program, presumptive conditions and how to file a claim. Printed information was offered and provided if desired. No questions at this time /caregiver was informed of local points of contact. Contact information for local resources: - Airborne Hazards and Burn Pit Exposures - Public Health ([place].gov) - Veterans Benefits for claims submission: Have the call or have them visit the following web address for online scheduling: [email or web address] [place]/s / - [facility] Healthcare Enrollment: -VETS (0483) - Find a [place] Bundle Cutter (VSO): Have the call [phone]-JSFNEBG or look up their VSO at: [facility] Navigators: Dr. Krzysztof Rodríguez: [phone] Dr. Tae Julian: [phone] Toxic Exposure Screening Follow-Up reminder is needed. Name of person notified: Guido Main MD Suicide Screen: C-SSRS Screening [place] Suicide Severity Rating Scale (C-SSRS) screener 1. Over the past month, have you wished you were or wished you could go to sleep and not wake up? No 2. Over the past month, have you had any actual thoughts of killing yourself? No 3. Over the past month, have you been thinking about how you might do this? Response not required due to responses to other questions. 4. Over the past month, have you had these thoughts and had some intention of acting on them? Response not required due to responses to other questions. 5. Over the past month, have you started to work out or worked out the details of how to kill yourself? Response not required due to responses to other questions. 6. If yes, at any time in the past month did you intend to carry out this plan? Response not required due to responses to other questions. 7. In your lifetime, have you ever done anything, started to do anything, or prepared to do anything to end your life (for example, collected pills, obtained a gun, gave away valuables, went to the roof but didn't jump)? No 8. If YES, was this within the past 3 months? Response not required due to responses to other questions. Depression Screening: Perform PHQ-2 A PHQ-2 screen was performed. The score was 0 which is a negative screen for depression. Over the past two weeks, how often have you been bothered by the following problems? 1. Little interest or pleasure in doing things Not at all 2. Feeling down, depressed, or hopeless Not at all Alcohol Use Screen (AUDIT-C): Alcohol Screen: SCREEN FOR ALCOHOL (AUDIT-C) An alcohol screening test (AUDIT-C) was negative (score=1). 1. How often did you have a drink containing alcohol in the past year? Monthly or less 2. How many drinks containing alcohol did you have on a typical day when you were drinking in the past year? One or two drinks 3. How often did you have six or more drinks on one occasion in the past year? Never Nursing Annual Screening: Fall History Screen During the past 12 months, have you had any falls? Patient does not report any falls in the past 12 months. MEDICATIONS: Patient is on one of the following medication classes: Antihypertensives, Antidepressants, Antipsychotics, Diuretics, or Controlled substance medication used for pain. FALL RISK ADVICE: Fall Risk Advice provided. Handout entitled Fall Prevention At Home reviewed and given to patient and/or significant other. Script Talk Screen Are you able to read your prescription bottles with your glasses, magnifiers or other aids? Yes or patient not taking any prescriptions. Skin Screen Patient reports any current pressure ulcers, a history of pressure ulcers, or a wound from a ophthalmic medical technician or Patient is bed-confined or a wheelchair-user or Patient requires assistance to transfer/change position No, Skin Screen is Negative Home Abuse/Violence Screen Is your home free of abuse and violence? Yes Outpatient Nutrition Screen Body Mass Index (BMI)= 35.8 [place]: Collection DT Specimen Test Name Result Units Ref Range 07/15/2019 10:50 BLOOD HEMOGLOBIN A1C 5.6 % 4.0 - 6.0 [place] Hgb A1C: No data available [place] Hgb A1C: No data available Point of Care Hgb A1C: POC HGB A1C____ Is patient's BMI less than 18.5? No Does patient have swallowing, coughing, or chewing problems affecting oral intake? No Has patient experienced unplanned weight loss or gain greater than 10 pounds over the last 2 months? No Is patient's Hgb A1C (Glycosylated Hemoglobin) greater than 9.5? No Is patient receiving Total Parenteral Nutrition (TPN) or Tube Feedings? No Patient Health Education Screen BARRIERS/SPECIAL NEEDS: No barriers identified PREFERRED STYLE OF LEARNING: Watching something Client Assistive Service (CANDIS) Screen Does the patient require assistance with outpatient visit? No Tobacco Use Screening: The patient is a former tobacco user. The patient quit fifteen or more years ago. Homelessness/Food Insecurity Screen: In the past 2 months, have you been living in stable housing that you own, rent, or stay in as part of a household? Yes - Living in stable housing. Are you worried or concerned that in the next 2 months you may NOT have stable housing that you own, rent, or stay in as part of a household? No - Not worried about housing near future The [place] reports the following: Within the past 12 months, you worried whether your food would run out before you got money to buy more. Never true Within the past 12 months, the food you bought just didn't last and you didn't have money to get more. Never true /ruth/ BLANCA Duron CBKELLEY Signed: 07/20/2022 10:02 ELIAN HERNANDEZ
--- OUTSIDE RECORDS SUMMARY | 2023-06-19 09:26 | XMS_ITS | Encounter Summary ---
Author Name [facility] Organization [facility] Address [address] [place] [address] Support Name Relationship Address Phone JUSTO BERTRAND Next of Kin [address] [address] [facility] [place] [address] Insurance Providers: All historical [...] to Policy Andrade BCBS [facility] (WNR) MEDICARE ADVANTAGE [facility] (WNR) May 27, 2022 [id number] [phone] NASH PATIENT HUMANA [facility] (WNR) MEDICARE ADVANTAGE [facility] (R) Oct 26, 2015 [id number] [place] PATIENT Selected Encounter This section includes the information on record at [place] for the Encounter. Date/Time Encounter Type Encounter Description Reason Provider Source Mar 22, 2023 09:45 AM ADMN SARSCOV2 VACC 1 DOSE PRIMARY CARE/MEDICINE ICD-10-CM Z23 Encounter for immunization FLATNESS,SYED LADI M IHE Encounter Template Text not used by VA Assessments - Encounter Diagnoses This section includes the primary and secondary diagnoses documented for the Encounter. Date/Time Primary/Secondary Diagnosis Diagnosis Name Provider Source Mar 22, 2023 09:51 AM PRIMARY Encounter for immunization FLATNESS,KRLOBO ADEN [facility]KEL[facility] Plan of Treatment: Future Appointments (+ 6 months) and Future Tests (+/- 45 days) The Plan of Treatment section includes future care activities for the patient from all VA treatmentfacilities. This section includes future appointments and future orders which are active, pending or scheduled. Future Appointments This section includes appointments that were scheduled to occur 6 months from the date of the Encounter, up to a maximum of 20 appointments. The data comes from all [place] treatment facilities. Appointment Date/Time Appointment Type Appointme nt Facility Name May 07, 2023 09:00 AM AMBULATORY - NONE [facility] Jun 04, 2023 11:30 AM AMBULATORY - MEDICINE [facility] Jun 24, 2023 08:30 AM AMBULATORY - MEDICINE [facility] Immunizations: All administered on the encounter date This section contains immunizations associated to the Encounter. Immunization Series Date Issued Reaction Comments COVID-19 (PFIZER), MRNA, LNP -S, PF, LOKI-SUCROSE, 30 MCG/0.3 ML (AGES 12+ YEARS) 1 Mar 22, 2023 Social History: Smoking Status (Most current) and Tobacco Use (All prior to encounter date) This section includes the most current, and the historical, smoking and tobacco- related health factors from the VA facility where the Encounter took place. Current Smoking Status This section includes the most current smoking, or tobacco-related health factor, from the VA facility where the Encounter took place. Date/Time Current Smoking Status Comment Facil ity Jul 20, 2022 10:00 AM VA-TOBACCO QUIT 15 YRS OR MORE [facility] Tobacco Use History This section includes a history of the smoking, or tobacco-related health factors, that were collected on or before the date of the Encounter. The data comes from the [place] facility where the Encounter took place. Date/Time Smoking Status/Tobacco Use Comment F acility Jul 20, 2022 10:00 AM VA-TOBACCO QUIT 15 YRS OR MORE [facility] Jul 19, 2021 10:30 AM VA-TOBACCO FORMER USER [facility] Jul 19, 2021 10:30 AM VA-TOBACCO QUIT 15 YRS OR MORE [facility] Jul 13, 2020 09:00 AM VA-TOBACCO FORMER USER [facility] Jul 13, 2020 09:00 AM VA-TOBACCO QUIT 15 YRS OR MORE [facility] May 28, 2019 10:14 AM VA-TOBACCO FORMER USER [facility] May 28, 2019 10:14 AM VA-TOBACCO QUIT 15 YRS OR MORE [facility] Jul 11, 2018 10:01 AM VA-TOBACCO FORMER USER [facility] Jul 11, 2018 10:01 AM VA-TOBACCO QUIT 15 YRS OR MORE [facility] Aug 23, 2017 08:39 AM FORMER TOBACCO USER 7Y OR GREATE R [facility] Aug 16, 2016 09:15 AM FORMER TOBACCO USER 7Y OR GREATE R [facility] Sep 01, 2015 08:29 AM LIFETIME NON-TOBACCO USER [facility] Aug 25, 2014 08:57 AM FORMER TOBACCO USER 7Y OR GREATE R [facility] Sep 10, 2013 10:00 AM FORMER TOBACCO USER 7Y OR GREATE R [facility] Advance Directives: All historical and current Section Date Range: From patient's date of to the date document was created. This section includes ALL of a patient's completed or amended [place] Advance and Rescinded Directives. The entries below indicate that a directive exists for the patient, but an actual copy is not included with this document. The data comes from all [place] facilities. Date Advance Directives Provider Source Jul 15, 2008 ADVANCE DIRECTIVE DEBRA SR [facility] Jul 15, 2008 ADVANCE DIRECTIVE DISCUSSION [place] [facility] Jun 28, 2008 ADVANCE DIRECTIVE DISCUSSION [facility] Encounter Notes: All associated encounter notes This section contains the clinical notes associated to the Encounter. Date/Time Encounter Note(s) Provider Source Mar 22, 2023 09:49 AM NURSING IMMUNIZATI ON NOTE: LOCAL TITLE: [facility] COVID-19 VACCINE ADMINISTRATION STANDARD TITLE: NURSING IMMUNIZATION NOTE DATE OF NOTE: MAR 22, 2023@09:49 ENTRY DATE: MAR 22, 2023@09:49:48 AUTHOR: ARNALDO WATERS COSIGNER: URGENCY: STATUS: COMPLETED Pfizer Monovalent (Comirnaty) Vaccine information reviewed with the patient. The patient denied any prior severe reaction to this vaccine or its components or a severe allergic reaction such as anaphylaxis to any vaccine or to any injectable therapy. The patient gave verbal consent to receive vaccine. Administered: COVID-19 (PFIZER), MRNA, LNP-S, PF, LOKI-SUCROSE, 30 MCG/0.3 ML (AGES 12+ YEARS) Date Administered: Mar 22, 2023 09:45 Series: Series 1 Client Support Associate: [employer] Lot: [id number] Exp Date: Jun 26, [address] [facility]: [phone] Admin Route/Site: INTRAMUSCULAR/LEFT DELTOID Dosage: 0.3mL Order By: Policy Administered By: Arnaldo Waters Vaccine administered without complications. The patient was advised to remain in the facility for 15 minutes post vaccination. /ruth/ Arnaldo Waters RN Nurse [facility] Signed: 03/22/2023 09:51 ARNALDO WATERS [facility]KELLEY
--- OUTSIDE RECORDS SUMMARY | 2023-06-19 09:26 | XMS_ITS | Encounter Summary ---
Author Name [facility] Organization [facility] Address [address] [place] [address] Support Name Relationship Address Phone JUSTO BERTRAND Next of Kin [address] [id number] [facility] [address] Insurance Providers: All historical and [...] [facility] (WNR) MEDICARE ADVANTAGE [facility] (WNR) May 27, 2022 [id number] NASH PATIENT HUMANA [facility] (WNR) MEDICARE ADVANTAGE [facility] (WNR) Oct 26, 2015 [id number] [place] PATIENT Selected Encounter This section includes the information on record at [place] for the Encounter. Date/Time Encounter Type Encounter Description Reason Pro vider Source Apr 26, 2023 12:00 AM Outpatient Encounter EVENT (HISTORICAL) IHE Encounter Template Text not used by [place] Plan of Treatment: Future Appointments (+ 6 months) and Future Tests (+/- 45 days) The Plan of Treatment section includes future care activities for the patient from all [place] treatmentfacilities. This section includes future appointments and [...] 2023 09:00 AM AMBULATORY - NONE [facility] Jun 04, 2023 11:30 AM [facility]ATORY - [facility] Jun 24, 2023 08:30 AM AMBULATORY - [facility]IC[facility] Immunizations: All administered on the encounter date This section contains immunizations associated to the Encounter. Immunization Series Date Issued Reaction Comments INFLUENZA VACCINE, QUADRIVALENT, ADJUVANTED Apr 26, 2023 Advance Directives: All historical and current Section [...] Jul 15, 2008 ADVANCE DIRECTIVE DEBRA SR [facility] Jul 15, 2008 ADVANCE DIRECTIVE DISCUSSION [place] [facility] Jun 28, 2008 ADVANCE DIRECTIVE DISCUSSION [place] [facility]
--- OUTSIDE RECORDS SUMMARY | 2023-06-19 09:26 | XMS_ITS | Encounter Summary ---
Author Name Department of [facility] Organization Department of [facility] Address [address] [place] [address] Support Name Relationship Address Phone JUSTO BERTRAND Next of Kin [phone] [facility] [place] [address] Insurance Providers: All historical [...] Name Patient's Relationship to Policy Andrade BCBS [facility] (WNR) MEDICARE ADVANTAGE [facility] (WNR) May 27, 2022 [id number] [phone] [place] PATIENT HUMANA [facility] (WNR) MEDICARE ADVANTAGE [facility] (WNR) Oct 26, 2015 [id number] [place] PATIENT Selected Encounter This section includes the information on record at [place] for the Encounter. Date/Time Encounter Type Encounter Description Reason Pro vider Source Mar 15, 2023 02:47 PM Outpatient Encounter PRIMARY CARE/MEDICINE IHE Encounter Template Text not used by [place] Plan of Treatment: Future Appointments (+ 6 months) and Future Tests (+/- 45 days) The Plan of Treatment section includes future care activities for the patient from all [place] treatmentfacilities. This section includes future appointments and future orders which are active, pending or scheduled. Future Appointments This section includes appointments that were scheduled to occur 6 months from the date of the Encounter, up to a maximum of 20 appointments. The data comes from all [place] treatment facilities. Appointment Date/Time Appointment Type Appointme nt Facility Name Mar 22, 2023 09:45 AM AMBULATORY - [facility]IC[facility] May 07, 2023 09:00 AM AMBULATORY - NONE [facility] Jun 04, 2023 11:30 AM AMBULATORY - MEDICINE [facility] Jun 24, 2023 08:30 AM AMBULATORY - MEDICINE [facility] Advance Directives: All historical and current Section Date Range: From patient's date of to the date document was created. This section includes ALL of a patient's completed or amended [place] Advance and Rescinded Directives. The entries below indicate that a directive exists for the patient, but an actual copy is not included with this document. The data comes from all [place] facilities. Date Advance Directives Provider Source Jul 15, 2008 ADVANCE DIRECTIVE DEBRA SR [facility] Jul 15, 2008 ADVANCE DIRECTIVE DISCUSSION [place] [facility] Jun 28, 2008 [facility] Encounter Notes: All associated encounter notes This section contains the clinical notes associated to the Encounter. Date/Time Encounter Note(s) Provider Source Mar 18, 2023 12:05 PM ADDENDUM: LOCAL TITLE: Addendum STANDARD TITLE: ADDENDUM DATE OF NOTE: MAR 18, 2023@12:05:22 ENTRY DATE: MAR 18, 2023@12:05:23 AUTHOR: ISMAEL GIBSONIGNER: URGENCY: STATUS: COMPLETED RTC placed. Please contact patient to schedule. /ruth/ ISMAEL ADEN [facility] Signed: 03/18/2023 12:05 Receipt Acknowledged By: 03/18/2023 14:04 /ruth/ WILLIAM Aden [facility] --- Original Document --- 03/15/23 PATIENT CONTACT NOTE: Patient contact Name of Fleming: MEKHI BERTRAND Name/Relationship of Contact if other than Fleming: Date & Time of Contact: Feb@14:47 Type of Contact: Telephone Reason for Contact: Patient is interesting in recieving the latest Covid-[address] order if appropriate once you'r able to. Thank you /claudio STUART [facility] Signed: 03/15/2023 14:49 Receipt Acknowledged By: 03/18/2023 05:26 /ruth/ GUIDO MAIN M.D. Physician, Darian Aden [facility] 03/18/2023 12:05 /ruth/ ISMAEL GIBSON RN DARIAN LEA [facility] 03/18/2023 ADDENDUM STATUS: COMPLETED Please let the patient know that we do not have these available yet. This should be a nursing standing order once we have them. /ruth/ GUIDO MAIN M.D. Physician, Darian Aden [facility] Signed: 03/18/2023 05:27 ISMAEL GIBSON [facility] Mar 15, 2023 02:47 PM REPORT OF CONTACT: LOCAL TITLE: PATIENT CONTACT NOTE STANDARD TITLE: REPORT OF CONTACT DATE OF NOTE: MAR 15, 2023@14:47 ENTRY DATE: MAR 15, 2023@14:47:34 AUTHOR: WILLIAM STUART EXP COSIGNER: URGENCY: STATUS: COMPLETED PATIENT CONTACT NOTE Has ADDENDA Patient contact Name of Fleming: MEKHI BERTRAND Name/Relationship of Contact if other than : Date & Time of Contact: Feb@14:47 Type of Contact: Telephone Reason for Contact: Patient is interesting in recieving the latest Covid-[address] order if appropriate once you'r able to. Thank you /claudio STUART [facility] Signed: 03/15/2023 14:49 Receipt Acknowledged By: 03/18/2023 05:26 /ruth/ GUIDO MAIN M.D. Physician, Darian Aden [facility] 03/18/2023 12:05 /ruth/ ISMAEL GIBSON RN DARIAN LEA [facility] 03/18/2023 ADDENDUM STATUS: COMPLETED Please let the patient know that we do not have these available yet. This should be a nursing standing order once we have them. /ruth/ GUIDO MAIN M.D. Physician, Darian Aden [facility] Signed: 03/18/2023 05:27 03/18/2023 ADDENDUM STATUS: COMPLETED RTC placed. Please contact patient to schedule. /ruth/ ISMAEL ADEN [facility] Signed: 03/18/2023 12:05 Receipt Acknowledged By: * AWAITING SIGNATURE * WILLIAM STUART KATIE J ALBERT LEA [facility]
--- OUTSIDE RECORDS SUMMARY | 2023-06-19 09:26 | XMS_ITS | Encounter Summary ---
Author Name [facility] Organization [facility] Address [address] [place] [address] Support Name Relationship Address Phone JUSTO BERTRAND Next of Kin [address] [address] [facility] [address] Insurance Providers: All historical [...] Relationship to Policy Andrade BCBS [facility] (WNR) MEDICARE ADVANTAGE [facility] (WNR) May 27, 2022 [id number] [phone] NASH PATIENT HUMANA [facility] (WNR) MEDICARE ADVANTAGE [facility] (WNR) Oct 26, 2015 [id number] [place] PATIENT Selected Encounter This section includes the information on record at [place] for the Encounter. Date/Time Encounter Type Encounter Description Reason Pro vider Source Oct 31, 2022 11:10 AM Outpatient Encounter TELEPHONE PRIMARY CARE E Encounter Template Text not used by [place] Plan of Treatment: Future Appointments (+ 6 months) and Future Tests (+/- 45 days) The Plan of Treatment section includes future care activities for the patient from all [place] treatmentfacilities. This section includes future appointments and future orders which are active, pending or scheduled. Future Appointments This section includes appointments that were scheduled to occur 6 months from the date of the Encounter, up to a maximum of 20 appointments. The data comes from all [place] treatment facilities. Appointment Date/Time Appointment Type Appointme [...] this document. The data comes from all [place] facilities. Date Advance Directives Provider Source Jul 15, 2008 ADVANCE DIRECTIVE DEBRA SR [facility] Jul 15, 2008 ADVANCE DIRECTIVE DISCUSSION [place] [facility] Jun 28, 2008 ADVANCE DIRECTIVE DISCUSSION [place] [facility] Encounter Notes: All associated encounter notes This section contains the clinical notes associated to the Encounter. Date/Time Encounter Note(s) Provider Source Oct 31, 2022 11:10 AM PRIMARY CARE NONVA NOTE: LOCAL TITLE: CO-MANAGED CARE NOTE STANDARD TITLE: PRIMARY CARE NONVA NOTE DATE OF NOTE: OCT 31, 2022@11:10 ENTRY DATE: OCT 31, 2022@11:11:03 AUTHOR: STANISLAV MUSA EXP COSIGNER: URGENCY: STATUS: COMPLETED Received request for: 1. Ezetimibe 10 mg daily. QTY: 90 Refills: 3 Rx written by: MD Wellington Valdivia Facility:[id number] Local provider phone #[phone] Local provider fax #[phone] Records scanned/available for review in [employer] or [employer]. Please view alert poem writer if: VA PCP needs further information to make decision (specify) -or- [place] PCP recommends alternative (specify) -or- Request is denied (pt will need to continue to fill outside of [place]). Order Runner will then relay the above to local prescriber's office. /ruth/ STANISLAV MUSA LPN [employer] Manager Signed: 10/31/2022 11:15 Receipt Acknowledged By: * AWAITING SIGNATURE * GUIDO MAIN ALEAH M [facility]
--- OUTSIDE RECORDS SUMMARY | 2023-06-19 09:26 | XMS_ITS | Encounter Summary ---
Author Name [facility] of [facility] Organization [facility] of [facility] Address [address] [place] [address] Support Name Relationship Address Phone JUSTO BERTRAND Next of Kin [id number] [address] [facility] [address] Insurance Providers: All historical [...] BCBS [facility] (WNR) MEDICARE ADVANTAGE [facility] (WNR) May 27, 2022 [id number] [phone] NAS[place] PATIENT HUMANA [facility] (WNR) MEDICARE ADVANTAGE [facility] (WNR) Oct 26, 2015 [id number] [place] PATIENT Selected Encounter This section includes the information on record at [place] for the Encounter. Date/Time Encounter Type Encounter Description Reason Pro vider Source Apr 25, 2023 08:14 PM Outpatient Encounter COMMUNITY CARE CONSULT [facility] Encounter Template Text not used by [place] [...] AM AMBULATORY - MEDICINE [facility] Advance Directives: All historical and current Section [...] Provider Source Jul 15, 2008 ADVANCE DIRECTIVE [facility] [facility]INIO [facility] Jul 15, 2008 ADVANCE DIRECTIVE DISCUSSION [place] [facility] Jun 28, 2008 [facility] Encounter Notes: All associated encounter notes This section contains the clinical notes associated to the Encounter. Date/Time Encounter Note(s) Provider Source Apr 25, 2023 08:14 PM PHARMACY NOTE: LOCAL TITLE: PHARMACY NON [place] CARE MEDICATIONS STANDARD TITLE: PHARMACY NOTE DATE OF NOTE: APR 25, 2023@20:14 ENTRY DATE: APR 25, 2023@20:15:03 AUTHOR: ИРИНА QUINTEROS COSIGNER: URGENCY: STATUS: COMPLETED [facility] Outpatient Pharmacy RECEIVED electronic prescription(s) (eRX(s)) from NON-VA Provider: NADIRA SHEIKH Date eRX received: Mar not eligible to receive non-VA prescription(s) at this time. Prescription(s) REDIRECTED via FAX to: [X][facility] (Dual) Care [ ]Other: [ ] [facility] (Mkto) [ ] [facility] eRx Reference #: [id number] eRx Prescription Information: eRx Drug: rosuvastatin 40 mg tablet (CRESTOR) eRx Qty: 90 eRx Refills: 3 eRx Days Supply: eRx Written Date: APR 24, 2023 eRx Issue Date: Prohibit Renewals: No eRx Sig: Take 1 tablet (40 mg total) by mouth daily. [id number] eRx Drug: omeprazole 20 mg capsule,delayed release (PriLOSEC) eRx Qty: 90 eRx Refills: 3 eRx Days Supply: eRx Written Date: APR 24, 2023 eRx Issue Date: Prohibit Renewals: No eRx Sig: Take 1 capsule (20 mg total) by mouth daily. [id number] eRx Drug: ezetimibe 10 mg tablet (ZETIA) eRx Qty: 90 eRx Refills: 3 eRx Days Supply: eRx Written Date: APR 24, 2023 eRx Issue Date: Prohibit Renewals: No eRx Sig: Take 1 tablet (10 mg total) by mouth daily. [id number] eRx Drug: metoprolol tartrate 25 mg tablet (LOPRESSOR) eRx Qty: 180 eRx Refills: 3 eRx Days Supply: eRx Written Date: APR 24, 2023 eRx Issue Date: Prohibit Renewals: No eRx Sig: Take 1 tablet (25 mg total) by mouth 2 (two) times a day. /ruth/ ИРИНА QUINTEROS Pharmacist Signed: 04/25/2023 20:18 ИРИНА QUINTEROS [facility]
--- OUTSIDE RECORDS SUMMARY | 2023-06-19 09:26 | XMS_ITS | Encounter Summary ---
Author Name [facility] Organization [facility] Address [address] [place] [address] Support Name Relationship Address Phone JUSTO BERTRAND Next of Kin [id number] [facility] [id number] Insurance Providers: All [...] Name Patient's Relationship to Policy Andrade BCBS [facility] (WNR) MEDICARE ADVANTAGE [facility] (WNR) May 27, 2022 [id number] [phone] [place] PATIENT [employer] [facility] (WNR) MEDICARE ADVANTAGE [facility] (WNR) Oct 26, 2015 [id number] [place] PATIENT Selected Encounter This section includes the information on record at [place] for the Encounter. Date/Time Encounter Type Encounter Description Reason Pro vider Source May 23, 2023 02:18 PM Outpatient Encounter TELEPHONE TRIAGE IHE Encounter Template Text not used by [place] Plan of Treatment: Future Appointments (+ 6 months) and Future Tests (+/- 45 days) The Plan of Treatment section includes future care activities for the patient from all [place] treatmentfacilities. This section includes future appointments and future orders which are active, pending or scheduled. Future Appointments This section includes appointments that were scheduled to occur 6 months from the date of the Encounter, up to a maximum of 20 appointments. The data comes from all [place] treatment facilities. Appointment Date/Time Appointment Type Appointme nt Facility Name Jun 04, 2023 11:30 AM AMBULATORY - MEDICINE [facility] Jun 24, 2023 08:30 AM AMBULATORY - MEDICINE ABRAHAN RT [facility]ST[facility] Advance Directives: All historical and current Section Date Range: From patient's date of to the date document was created. This section includes ALL of a patient's completed or amended [place] Advance and Rescinded Directives. The entries below indicate that a directive exists for the patient, but an actual copy is not included with this document. The data comes from all [place] facilities. Date Advance Directives Provider Source Jul 15, 2008 ADVANCE DIRECTIVE [facility] Jul 15, 2008 ADVANCE DIRECTIVE [place]CUSSION [place] [facility] Jun 28, 2008 ADVANCE DIRECTIVE DISCUSSION [place] [facility] Encounter Notes: All associated encounter notes This section contains the clinical notes associated to the Encounter. Date/Time Encounter Note(s) Provider Source May 23, 2023 04:21 PM ADDENDUM: LOCAL TITLE: Addendum STANDARD TITLE: ADDENDUM DATE OF NOTE: MAY 23, 2023@16:21:37 ENTRY DATE: MAY 23, 2023@16:21:38 AUTHOR: JOSE ALBERTO MOJICA EXP COSIGNER: URGENCY: STATUS: COMPLETED ALERT PROVIDER TO REVIEW [place] is wondering if he could do [facility] for Cardiology services at the [facility] so the [place] is paying for it, please. They have him on an injection for cholesterol that is very expensive and would like it authorized to be done with them instead of paying out of pocket as it is very expensive. /ruth/ JOSE ALBERTO MOJICA REGISTERED NURSE Signed: 05/23/2023 16:23 Receipt Acknowledged By: 05/23/2023 18:10 /ruth/ GUIDO MAIN M.D. Physician, Darian CRISTINA --- Original Document --- 05/23/23 CCC: SCHEDULING ADMINISTRATION: Primary Care Call Center Primary Care Provider Call. Other: is wondering if he could do [facility] for [facility], [facility]. They have him on an injection for cholesterol that is very expensive and would like it authorized to be done with them instead of paying out of pocket as it is very expensive. /ruth/ LIANA [id number] [facility] Signed: 05/23/2023 14:21 Receipt Acknowledged By: 05/23/2023 16:21 /claudio MOJICA REGISTERED NURSE for ISMAEL GIBSON JOSE ALBERTO MOJICA [facility] May 23, 2023 02:18 PM ADMINISTRATIVE NOT E: LOCAL TITLE: CCC: SCHEDULING ADMINISTRATION STANDARD TITLE: ADMINISTRATIVE NOTE DATE OF NOTE: MAY 23, 2023@14:18 ENTRY DATE: MAY 23, 2023@14:18:58 AUTHOR: LIANA GAMBOA EXP COSIGNER: URGENCY: STATUS: COMPLETED [facility]: SCHEDULING ADMINISTRATION Has ADDENDA Primary Care Call Center Primary Care Provider Call. Other: [place] is wondering if he could do [facility] for Cardiology [facility] at the [facility], [facility]. They have him on an injection for cholesterol that is very expensive and would like it authorized to be done with them instead of paying out of pocket as it is very expensive. /ruth/ LIANA BETANCOURTN23 [facility] Signed: 05/23/2023 14:21 Receipt Acknowledged By: 05/23/2023 16:21 /claudio MOJICA REGISTERED NURSE for ISMAEL GIBSON 05/23/2023 ADDENDUM STATUS: COMPLETED ALERT PROVIDER TO REVIEW is wondering if he could do [facility] for Cardiology services at the [facility] so the [place] is paying for it, please. They have him on an injection for cholesterol that is very expensive and would like it authorized to be done with them instead of paying out of pocket as it is very expensive. /claudio MOJICA REGISTERED NURSE Signed: 05/23/2023 16:23 Receipt Acknowledged By: 05/23/2023 18:10 /ruth/ GUIDO AMIN M.D. Physician, Darian CRISTINA 05/23/2023 ADDENDUM STATUS: COMPLETED RTC placed for phone appt. to discuss [facility]ITC cardiology consult /es/ GUIDO MAIN M.D. Physician, Darian [facility] Signed: 05/23/2023 18:18 LIANA GAMBOA [facility]
--- OUTSIDE RECORDS SUMMARY | 2023-06-19 09:27 | XMS_ITS | Continuity of Care Document ---
Author Name Unknown Organization [facility] Address [address] [place] [id number] Encounter 10/29/22 - 10/29/22 [facility] [address] [place] [address]- [place] Discharge Disposition: Discharged to Home or Self Care Attending Physician: Jose PRITCHARD, Nicolasa Brenner
--- OUTSIDE RECORDS SUMMARY | 2023-06-19 09:27 | XMS_ITS | Clinical Summary ---
Author Name Unknown Organization [facility] Address [address] [place] [address] Care Team Providers Care Corn Lab Technician Name Role Phone Cooper Jolly M.D. Primary Care Provid er Source Comments Patient records contain information from all sites at [facility]. For routine questions regarding patient records, call [phone] during business hours, M-F 8:00 AM - 5:00 PM Central Time. Record requests for emergency care only can be directed to [phone] at any time.[facility] Allergies Active Allergy Reactions Criticality Noted Date Comments Atorvastatin Myalgia 09/02/2010 Muscle cramps Latex Rash 02/09/2012 Polymyxin B Sulf-Trimethoprim Edema (Reselect Reaction) Low 01/22/2022 Pt used for eye - unsure if sx worsened with use b/c pt already had sx of severe itching and redness Sulfa (Sulfonamide Antibiotics) Other (see comments) 09/02/2010 Mouth gets raw Medications Medication Sig Dispensed Refills Start Date End Date Status triamcinolone (for_KENALOG) 0.1 % cream Apply 1 application topically as needed (bug bites). 0 05/02/[address] tablet Take 81 mg by mouth daily. 0 Active acetaminophen (TYLENOL) 500 mg capsule Take 1,000 mg by mouth 2 (two) times a day. 0 Active olopatadine (PATADAY) 0.2 % ophthalmic solution 1 drop at bedtime. 0 Active furosemide (LASIX) 40 mg tablet Take 40 mg by mouth daily as needed. 0 Active artificial tears with lanolin (REFRESH P.M.) ophthalmic ointment Apply 0.5 inches to left eye at bedtime. 3 g 11 07/27/2022 07/27/2023 Active rosuvastatin (CRESTOR) 40 mg tablet Take 1 tablet (40 mg total) by mouth daily. 90 tablet 3 04/24/2023 04/23/2024 Active omeprazole (PriLOSEC) [address] capsule Take 1 capsule (20 mg total) by mouth daily. 90 capsule 3 04/24/2023 Active amoxicillin (AMOXIL) 500 mg capsule TAKE FOUR CAPSULES BY MOUTH 30-60 MINUTES BEFORE APPOINTMENT 12 capsule 0 04/24/2023 Active ezetimibe (ZETIA) 10 mg tabletIndications :Coronary Artery 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 Pectoris,Hyperlip idemia Mixed Take 1 tablet (10 mg total) by mouth daily. 90 tablet 3 04/24/2023 04/23/2024 Active metoprolol tartrate (LOPRESSOR) 25 mg tablet Take 1 tablet (25 mg total) by mouth 2 (two) times a day. 180 tablet 3 04/24/2023 Active ofloxacin (OCUFLOX) 0.3 % ophthalmic solution Administer 1 drop into the left eye 4 (four) times a day for 7 days. 10 mL 0 06/13/2023 06/20/2023 Active Active Problems Problem Noted Date Diagnosed Date Loss Hearing Bilateral 04/24/2023 Tinnitus Bilateral 04/24/2023 Polyp Colon Personal History 04/10/2022 Overview: Last colonoscopy 2018 with 7 polyps Will repeat colonoscopy, patient prefers MiraLax Patient is on baby aspirin for CAD, he will continue Anemia 04/10/2022 Overview: Prior baseline of 13-14 Post operative(12/2020) anemia improving Stool hemoccult 12/2020 positive, this was the time patient was admitted for CABG and aortic valve replacement We will proceed with colonoscopy at this time Cerumen Impacted Bilateral 04/10/2022 Overview: Rinsed in the clinic Hernia Ventral 04/09/2022 Overview: 06/28 consequence of open heart surgery - CT 01/2022 noted - advised to avoid heavy lifting - patient to come to emergency in case of severe abdominal pain, nausea or vomiting Swelling Leg 04/09/2022 Overview: Uses lasix as needed Post COVID-19 Condition 04/09/2022 Overview: Covid 12/2021 s/p monoclonal antibody Covid 02/2023 s/p remdesivir Screening Colon Cancer Average Risk 04/09/2022 Overview: Added automatically from request for surgery [id number] COVID-19 Infection 01/25/2022 Leukocytosis 01/07/2021 Retained Metal Fragments 01/03/2021 Hyponatremia 01/01/2021 Hypokalemia 01/01/2021 Anemia Posthemorrhagic Acute (Blood Loss Anemia) 01/01/2021 Therapy Application Support Lead Antiplatelet 01/01/2021 Retention Urinary 12/30/2020 Replacement Aortic Valve Tissue 12/28/2020 Overview: S/p aortic valve replacement 12/28/2020 Bypass Coronary Artery Graft Status Post 021 Overview: COLON to LAD 12/28/2020 Continue aspirin OTC Continue metoprolol Obesity Body Mass Index 30-39.9 Adult 12/27/2020 Chronic Kidney Disease Stage 2 Glomerular Filtration Rate 60 To 89 12/27/2020 Atherosclerotic Heart Diseas e Of [place] Coronary Artery Without Angina Pectoris 09/10/2020 Hyperlipidemia Mixed 02/03/2018 Overview: Continue Crestor 40 mg and Zetia 10 mg S/p inclisiran injection Apnea Sleep Obstructive 02/03/2018 Overview: Mild obstructive sleep apnea syndrome - not on CPAP Tubular Adenoma Colon Personal History 8 Overview: Added automatically from request for surgery [id number] Ectopy Ventricular 07/10/2017 Cancer Skin Squamous Cell Personal History 05/06 Dilatation Ascending Aorta 09/02/2015 Overview: Dilatation Ascending Aorta, (diameter 42 mm at mid level) Stenosis Carotid Artery Bilateral 09/02/2015 Overview: Carotid Artery Disease (mild); asymptomatic Cardiomyopathy 09/02/2015 Overview: Cardiomyopathy, mild LVE with preserved ejection fraction Fever Rheumatic Personal History 08/07/2013 Gastroesophageal Reflux Disease NOS 08/07/2013 Overview: Continue Prilosec He uses tums recently Resolved Problems Problem Noted Date Diagnosed Date Resolved Date Monitoring For Therapeutic Drug Therapy 02/23/2021 07/03/2021 Decline Functional Status 01/07/2021 Ileus 01/01/2021 01/07/2021 Anticoagulant Therapy 01/01/20212021 Thrombocytopenia 12/31/2020 01/07/2021 Stenosis Aortic Valve Acquired 12/28/2020 01/01/2021 Pain Postoperative 12/28/2020 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 Conjunctivitis Acute Left (Primary Dx); Epiphora Left; Dry Eye Syndrome Bilateral Discharge Disposition: Home or Self Care 05/28/2023 Orders Only [facility] M.B.B.S., Ian 05/23/2023 Clinical Communication Department of Cardiovascular Diseases in [place], [place] [address] [phone] Kamryn Alvarado APRN, C.N.P. 05/09/2023 10:00 AM LEI SELLER Office Visit Department of Cardiovascular Diseases in [place], [place] [address] [phone] Wellington Valdivia M.D. Replacement Aortic Valve Tissue (Primary Dx); Coronary Artery 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 Pectoris; Cardiomyopathy (HCC); Ectopy Ventricular; Hyperlipidemia Mixed; Elevated Lipoprotein A; Thoracic Aortic Aneurysm Without Rupture Unspecified (HCC); Apnea Sleep Obstructive; Drug Induced Erectile Dysfunction; Anemia Iron Deficiency; Pain Chest Atypical; Hernia Ventral Discharge Disposition: Home or Self Care 05/06/2023 9:14 AM LEI SELLER - 05/06/2023 11:59 PM LEI SELLER Hospital Encounter Department of Laboratory Medicine in [place], [place] [address] [phone] Wellington Valdivia M.D. Coronary Artery 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 Pectoris; Hyperlipidemia Mixed; Elevated Lipoprotein A; Anemia Iron Deficiency Discharge Disposition: Home or Self Care 04/24/2023 10:00 AM LEI SELLER Comprehensive Visit Department of Internal Medicine in [place], [place] [address] [phone] Cooper Jolly M.B.B.S., M.D. Coronary Artery 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 Pectoris (Primary Dx); Bypass Coronary Artery Graft Status Post; Hyperlipidemia Mixed; Replacement Aortic Valve Tissue; Loss Hearing Bilateral; Tinnitus Bilateral; Post COVID-19 Condition; Hernia Ventral; Apnea Sleep Obstructive; Swelling Leg; Gastroesophageal Reflux Disease Without Esophagitis Discharge Disposition: Home or Self Care 04/16/2023 1:30 PM LEI SELLER Infusion Department of Infusion Therapy in [place], [place] [address] [phone] Kamryn Alvarado APRN CDionnaNDionnaPDionna COVID-19 Infection (Primary Dx); Hyperlipidemia Mixed; Atherosclerotic Heart Disease Of [place] Coronary Artery Without Angina Pectoris 04/11/2023 3:40 PM LEI SELLER Office Visit [facility] at [facility] in [place], [place] [address] [place] [phone] Palak Mike MPAS, P.A.-CDionna Cerumen Impacted Bilateral (Primary Dx) 04/11/2023 1:45 PM LEI SELLER Office Visit Department of Orthopedic Surgery in [place], [place] [address] [phone] Gregg Ferguson D.P.M. Lau, Emilee J Pain Joint Foot Bilateral (Primary Dx) Discharge Disposition: Home or Self Care 04/08/2023 Clinical Communication Department of Orthopedic Surgery in [place], [place] [address] [phone] Gregg Ferguson D.P.M. 03/28/2023 10:15 AM CDT Infusion Department of Infusion Therapy in [place], [place] [address] [facility] [place] [address] Francisca Saenz APRN, C.N.P., D.N.P. COVID-19 Infection (Primary Dx) 03/27/2023 2:15 PM CDT Infusion Department of Infusion Therapy in [place], [place] [address] [facility] [place] [address] Francisca Saenz APRN, C.N.P., D.N.P. COVID-19 Infection (Primary Dx) 03/26/2023 2:15 PM CDT Infusion Department of Infusion Therapy in [place], [place] [address] [facility] [place] [address] Francisca Saenz APRN, C.N.P., D.N.P. COVID-19 Infection (Primary Dx) 03/25/2023 Clinical Communication [facility] Care at the [facility] on the 4th Floor [address] [place] [address] Gayatri Starkey R.N. [facility] Treatment Review 03/25/2023 Nurse Triage Department of Internal Medicine in [place], [place] [address] [phone] Danelle Tim, RGuerrero COVID Nurse Line from Last 3 Months Immunizations Name Administration Dates Next Due Influenza, Quadrivalent, Adj uvanted, Preservative Free 02/08/2020 PCV20 05/02/2022 PPSV23 07/21/2013 RZV (SHINGRIX) 10/29/2019,07/15/2019 SARS-COV-2 (COVID-19) - PFIZ ER (12 years or older) 03/25/2021,07/29/2020,07/08/2020 SARS-COV-2 (COVID-19) - PFIZ ER BIVALENT TS(12 YEARS OR OLDER) 05/02/2022 SARS-COV-2 (COVID-19) - PFIZ ER TS(12 years or older) 09/12/2021 Td (Adult), adsorbed 06/05/2005 Tdap 07/21/2013 influenza high dose (65 year s or older) (PF) 03/08/2016 influenza vaccine quad (FLUZONE/FLUARIX) (6 months and older)(PF) 03/30/2022,03/13/2021,03/02/2019,2017,03/17/2015 Family History Medical History Relation Name Comments Macular degeneration Brother 1 Hyperlipidemia Brother 2 Hypertension Brother 2 Connective Tissue Disease Daughter Coronary artery bypass graft Father Clement Kidney cancer Father Clement Leukemia Mother Macular degeneration Mother Lymphoma Sister 1 Lung cancer Sister 2 Lupus Sister 2 Diabetes mellitus type I Son RA - Rheumatoid arthritis Son Relation Name Status Comments Brother 1 Alive Brother 2 Alive Daughter Alive Father Clement Mother Sister 1 Alive Sister 2 Sister 3 Alive Sister 4 Alive Sister 5 Alive Son Alive Social History Tobacco Use Types Packs/Day Years Used Date Smoking Tobacco: Former Cigarettes 1 10 Q uit: 1976 Passive Smoke Exposure: Past Smokeless Tobacco: Never Tobacco Cessation:Counseling Given: Not Answered Alcohol Use Standard Drinks/Week Comments Not Currently 2 (1 standard drink = 0.6 oz pur e alcohol) largely abstinent since 2017 Humiliation, Afraid, Rape, and Kick questionnair e Answer Date Recorded Within the last year, have y ou been afraid of your partner or ex-partner? No 04/09/2022 Within the last year, have y ou been humiliated or emotionally abused in other ways by your partner or ex-partner? No Within the last year, have y ou been kicked, hit, slapped, or otherwise physically hurt by your partner or ex-partner? No 04/09/2022 Within the last year, have y ou been raped or forced to have any kind of sexual activity by your partner or ex-partner? No 04/09/2022 Social Connection and Isolat ion Panel [NHANES] Answer Date Recorded In a typical week, how many times do you talk on the phone with family, friends, or neighbors? More than three times a week 04/09/2022 How often do you get togethe r with friends or relatives? More than three times a week 04/09/2022 How often do you attend chur ch or spiritism services? More than 4 times per year 04/09/2022 Do you belong to any clubs o r organizations such as christianity groups, unions, fraternal or athletic groups, or school groups? Yes 04/09/2022 How often do you attend meet ings of the clubs or organizations you belong to? More than 4 times per year 04/09/2022 Are you , , di vorced, , never , or living with a partner? 04/09/2022 AUDIT-C Answer Date Recorded Q1: How often do you have a drink containing alcohol? Never 04/09/2022 Q2: How many drinks containi ng alcohol do you have on a typical day when you are drinking? Patient does not drink Q3: How often do you have si x or more drinks on one occasion? Never 04/09/2022 Overall Financial Resource Strain (CARDIA) Answe r Date Recorded How hard is it for you to pa y for the very basics like food, housing, medical care, and heating? Patient declined 02/03/2023 PHQ-2 Answer Date Recorded PHQ-2 Score 0 04/24/2023 [facility] - Occupational Stress Questionnaire Answer Date Recorded Do you feel stress - tense, restless, nervous, or anxious, or unable to sleep at night because your mind is troubled all the time - these days? Only a little 04/09/2022 Exercise Vital Sign Answer Date Recorde d On average, how many days pe r week do you engage in moderate to strenuous exercise (like a brisk walk)? 4 days 02/03/2023 On average, how many minutes do you engage in exercise at this level? 20 min 02/03/2023 Hunger Vital Sign Answer Date Recorded Within the past 12 months, y ou worried that your food would run out before you got the money to buy more. Never true 02/04/20 23 Within the past 12 months, t he food you bought just didn't last and you didn't have money to get more. Never true 02/03/2023 PRAPARE - Transportation Answer Date Re corded In the past 12 months, has l ack of transportation kept you from medical appointments or from getting medications? No 01/25 In the past 12 months, has l ack of transportation kept you from meetings, work, or from getting things needed for daily living? No 02/03/2023 Depression Answer Date Recor ded PHQ-9 Total Score (max 27) 0 04/09 Nutrition Answer Date Recorded Nutrition: EVOO Fat Source No 02/03 On average, how many serving s of fruits and vegetables do you eat per day (serving size is equal to 1 cup or approximately the size of a tennis ball)? 0-2 02/03/2023 Dental Answer Date Recorded Dental: Regular Dentist Yes 01/25/20 Employment Answer Date Recorded Employment status Retired 02/03/2023 Housing Stability Answer Date Recorded What is your living situation today? I have a [facility] to live 02/03/2023 Education Answer Date Recorded What is the highest level of school you have completed or the highest degree you have received? Associate degree: occupational, technical, or vocational program 11/30/2020 Sex and Gender Information Value Date Recorded Sex Assigned at Male 04/29/2021 7:37 PM LEI SELLER Gender Identity Male 10/01/2020 9:14 PM CDT Sexual Orientation Straight 10/01/2020 9: 14 PM CDT Last Filed Vital Signs Vital Sign Reading Time Taken Comments Blood Pressure 115/69 05/09/2023 9:47 AM LEI SELLER Pulse 62 05/09/2023 9:47 AM LEI SELLER Temperature 35.8 ??C (96.4 ??F) 04/24/2023 9:48 AM CS T Respiratory Rate 18 04/24/2023 9:48 AM LEI SELLER Oxygen Saturation 100% 05/09/2023 9:47 AM LEI SELLER Inhaled Oxygen Concentration - - Weight 125 kg (276 lb 7.3 oz) 05/09/2023 9:47 AM LEI SELLER Height 182.7 cm (5' 11.93) 04/24/2023 9:[address] Body Mass Index 37.57 04/24/2023 9:48 AM LEI SELLER Plan of Treatment Upcoming Encounters Date Type Department Care Team (Late st Contact Info) Description 06/21/2023 8:30 AM LEI SELLER Ancillary Procedure Department of Ophthalmology in [place], [place] [address] [place] [address] Alanis Barker O.D. [address] [phone] (Work) 06/21/2023 9:00 AM LEI SELLER Comprehensive Visit Department of Ophthalmology in [place], [place] [address] [place] [phone] Brigid Hernandez M.D. [address] [place] [phone] 07/17/2023 12:30 PM LEI SELLER Infusion Department of Infusion Therapy in [place], [place] [address] [phone] Kamryn Alvarado APRN, C.N.P. [address] [phone] 09/04/2023 7:00 AM CDT Appointment Department of Laboratory Medicine in [place], [place] [address] [phone] Wellington Valdivia M.D. [address] [phone] Health Maintenance Due Date Last Done Comments CT Colonography 1950 Cologuard 1950 Hepatitis C Screening 1950 Influenza Vaccine (#1) 2023 2, 03/13/2021, 02/08/2020, Additional history exists Visit: Medicare Annual Wellness 04/10/2023 Depression Screening (Annual PHQ-2) 05/27/2023 Fall Risk Screen (Annual) 05/27/2023 DTaP,Tdap,and Td Vaccines (2 - Td or Tdap) 07/21/2023 07/21/2013, 06/05/2005 Visit: Annual, age 65+ (or Medicare and <65) 04/24/2024 04/24/2023 Creatinine Level (Kidney Fun ction Test) 05/06/2024 05/06/2023, 08/23/2022, 07/10/2022, Additional history exists Potassium Level 05/06/2024 05/06/2023, 07/27, 07/10/2022, Additional history exists Sodium Level 05/06/2024 05/06/2023, 07/27, 07/10/2022, Additional history exists Office Visit for Blood Press ure Check / Re-check 05/09/2024 05/09/2023 Colonoscopy 06/06/2025 06/06/2022, 01/25, 01/13/2010 Colorectal Cancer Surveillance 06/06/2025 Fasting Glucose for Diabetes Screening 05/06/2026 05/06/2023, 08/23/2022, 07/10/2022, Additional history exists Lipid (Cholesterol) Screening 05/06/2028, 12/12/2022, 08/23/2022, Additional history exists Zoster Vaccines Completed 10/29/2019, 07/15/2019 Abdominal Aortic Aneurysm (A AA) Screen Discontinued 02/20/2022, 08/15/2020, 11/11/2019, Additional history exists Pneumococcal vaccine (65+ years) Completed 05/02/20, 07/21/2013 COVID-19 Vaccine Completed 03/22/2023, 11/2021, 09/12/2021, Additional history exists Medical Devices Implanted Type Area [employer]fu[employer] Product Development Manager Device Identifier Shelf Expiration Date Model / Serial / Lot Vlv Aort Prm Ease Tfx Bovn 29 - [id number] - [id number] Implanted:Qty : 1 on 12/28/2020 by Ian Love M.D. at [facility] Cardiac Valve Prosthesis N/A: Heart [employer] 07/27/2024 [id number] / [id number] / Description:Implanted into t he aortic position Clp Hrzn Ti 24 Clp Sm Red - [id number] Implanted:Qty : 1 on 12/28/2020 by Ian Love M.D. at [facility] Hardware e.g. pins/screws/ro ds N/A: Chest [employer] [facility] [id number] / / Procedures Procedure Name Priority Date/Time Associated Diagnosis Comments BASIC METABOLIC PANEL, S/P Routine 05/06/2023 9:22 AM LEI SELLER Coronary Artery 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 Pectoris LIPID PANEL, S Routine 05/06/2023 9:22 AM LEI SELLER Coronary Artery 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 Pectoris Hyperlipidemia Mixed Elevated Lipoprotein A THYROID FUNCTION CASCADE, S Routine 05/06/2023 9:21 AM LEI SELLER Hyperlipidemia Mixed LACTATE DEHYDROGENASE (LD), S Routine 05/06/2023 9:21 AM LEI SELLER Anemia Iron Deficiency HAPTOGLOBIN, S Routine 05/06/2023 9:21 AM LEI SELLER Anemia Iron Deficiency FOLATE, S Routine 05/06/2023 9:21 AM LEI SELLER Anemia Iron Deficiency VITAMIN B12 ASSAY, S Routine 05/06/2023 9:21 AM LEI SELLER Anemia Iron Deficiency FERRITIN, S Routine 05/06/2023 9:21 AM LEI SELLER Anemia Iron Deficiency CBC WITHOUT DIFFERENTIAL, B Routine 05/06/2023 9:21 AM LEI SELLER Anemia Iron Deficiency APOLIPOPROTEIN B, P Routine 05/06/2023 9 :21 AM LEI SELLER Coronary Artery 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 Pectoris Hyperlipidemia Mixed Elevated Lipoprotein A UT RMVL IMPACT CERUMEN IRRIG UNILAT Routine 04/11/2023 3:40 PM LEI SELLER Cerumen Impacted Bilateral EXTM HOME SARS CORONAVIRUS-2 (COVID-19) ANTIGEN, V Routine 03/25/2023 from Last 3 Months Results * Lipid Panel (05/06/2023 9:22 AM LEI SELLER) Pathologist [facility] Triglycerides 114 mg/dL 05/06/2023 9:53 AM LEI SELLER AUST Comment: ----REFERENCE VALUE---- Normal: <150 mg/dL Borderline High: 150-199 mg/dL High: 200-499 mg/dL Very High: > or =500 mg/dL Cholesterol, Total 113 mg/dL 2022 9:53 AM LEI SELLER AUST Comment: ----REFERENCE VALUE---- Desirable: < 200 mg/dL Borderline High: 200 - 239 mg/dL High: > or = 240 mg/dL Cholesterol, LDL, Calculated 39 mg/dL 05/06/2023 9:53 AM LEI SELLER AUST Comment: ----REFERENCE VALUE---- Desirable: <100 mg/dL Above Desirable: 100-129 mg/dL Borderline High: 130-159 mg/dL High: 160-189 mg/dL Very High: >=190 mg/dL ----ADDITIONAL INFORMATION---- LDL cholesterol calculated using the Stacy/NIH equation. Cholesterol, HDL 53 >=40 mg/dL 05/06/20 9:53 AM LEI SELLER AUST Cholesterol, Non-HDL, Calculated 60 mg/dL 05/06/2023 9:53 AM LEI SELLER AUST Comment: ----REFERENCE VALUE---- Desirable: <130 mg/dL Above Desirable: 130-159 mg/dL Borderline High: 160-189 mg/dL High: 190-219 mg/dL Very High: > or =220 mg/dL Fasting (8 HR or more) y 05/06/2023 9:24 AM LEI SELLER AUST Blood (Blood, Venous) 05/06/2023 9:22 AM LEI SELLER 05/06/2023 9:24 AM LEI SELLER Wellington Valdivia M.D. LAB BLOOD ADD-ON [facility] [address] [place] [address], [facility] AUST [facility] [address] [place] [address] * (ABNORMAL) Basic Metabolic Panel (05/06/2023 9:22 AM LEI SELLER) Potassium, P 5.3(H) 3.6 - 5.2 mmol/L 05/06/2023 9:53 AM LEI SELLER AUST Sodium, P 141 135 - 145 mmol/L 05/06/2023 9:53 AM LEI SELLER AUST Chloride, P 105 98 - 107 mmol/L 05/06/2023 9:53 AM LEI SELLER AUST Bicarbonate, P 29 22 - 29 mmol/L 05/06/2023 9:53 AM LEI SELLER AUST Anion Gap, P 7 7 - 15 05/06/2023 9:53 AM LEI SELLER AUST BUN (Blood Urea Nitrogen), P 17 8 - 24 mg/dL 05/06/2023 9:53 AM LEI SELLER AUST Creatinine 1.14 0.74 - 1.35 mg/dL 05/06/2023 9:53 AM LEI SELLER AUST Estimated GFR (eGFR) 67 >=60 mL/min/BSA 05/06/2023 9:53 AM LEI SELLER AUST Comment: Estimated GFR calculated using the 2020 CKD_EPI creatinine equation. Calcium, Total, P 9.4 8.8 - 10.2 mg/dL 05/06/2023 9:53 AM LEI SELLER AUST Glucose, P 110 70 - 140 mg/dL 05/06/2023 9:53 AM LEI SELLER AUST Blood (Blood, Venous) 05/06/2023 9:22 AM LEI SELLER 05/06/2023 9:24 AM LEI SELLER Wellington Valdivia M.D. LAB BLOOD ADD-ON [facility] [address] [place] [address], [facility] [place] [address] * Thyroid Function Lorida (05/06/2023 9:21 AM LEI SELLER) TSH, Sensitive 2.6 0.3 - 4.2 mIU/L 05/06/2023 10:47 AM LEI SELLER AUST Blood (Blood, Venous) 05/06/2023 9:21 AM LEI SELLER 05/06/2023 9:24 AM LEI SELLER Wellington Valdivia M.D. LAB BLOOD ADD-ON [facility] [address] [place] [id number], [facility] - [facility] [address] [place] [address] * Apolipoprotein B (05/06/2023 9:21 AM LEI SELLER) Pathologist [facility] Apolipoprotein B, S 60 mg/dL 05/07 12:25 PM LEI SELLER DTL Comment: ----REFERENCE VALUE---- Desirable: <90 Above Desirable: 90-99 Borderline high: 100-119 High: 120-139 Very high: > or = 140 Blood (Blood, Venous) 05/06/2023 9:21 AM LEI SELLER 05/07/2023 7:49 AM LEI SELLER Wellington Valdivia M.D. LAB BLOOD NON ADD -ON [facility] [address] [place] [address], [facility] [address] [place] [address] * CBC without Differential (05/06/2023 9:21 AM LEI SELLER) Pathologist [facility] Hemoglobin 13.2 13.2 - 16.6 g/dL 05/06/2023 9:29 AM LEI SELLER AUST Hematocrit 41.7 38.3 - 48.6 % 05/06/2023 9:29 AM LEI SELLER AUST Erythrocytes 4.40 4.35 - 5.65 x10(12)/L 05/06/2023 9:29 AM LEI SELLER AUST MCV 94.8 78.2 - 97.9 fL 05/06/2023 9:29 AM LEI SELLER AUST RBC Distrib Width 12.2 11.8 - 14.5 % 05/06/2023 9:29 AM LEI SELLER AUST Platelet Count 158 135 - 317 x10(9)/L 05/06/2023 9:29 AM LEI SELLER AUST Leukocytes 5.4 3.4 - 9.6 x10(9)/L 05/06/2023 9:29 AM LEI SELLER AUST Blood (Blood, Venous) 05/06/2023 9:21 AM LEI SELLER 05/06/2023 9:24 AM LEI SELLER Wellington Valdivia M.D. LAB BLOOD ADD-ON Performing Organization Address [facility]/ZIP Co de Phone Number [facility] [address] [place] [address], [facility] - [address] [address] * (ABNORMAL) LD (Lactate Dehydrogenase) (05/06/2023 9:21 AM LEI SELLER) Lactate Dehydrogenase (LD), P 250(H) 122 - 222 U/L 05/06/2023 9:50 AM LEI SELLER AUST Blood (Blood, Venous) 05/06/2023 9:21 AM LEI SELLER 05/06/2023 9:24 AM LEI SELLER Wellington Valdivia M.D. LAB BLOOD NON ADD -ON Performing Organization Address [facility] Co de Phone Number [facility] [address] [place] [address], [facility] - [address] [address] * Haptoglobin (05/06/2023 9:21 AM LEI SELLER) Haptoglobin, S 143 30 - 200 mg/dL 05/06/2023 2:43 PM LEI SELLER MKTO Blood (Blood, Venous) 05/06/2023 9:21 AM LEI SELLER 05/06/2023 2:13 PM LEI SELLER Wellington Valdivia M.D. LAB BLOOD ADD-ON [facility] [address] [place] [address], [facility] MKTO [facility] [place] [address] [place] [id number] * Folate (05/06/2023 9:21 AM LEI SELLER) Folate, S 12.1 >=4.0 mcg/L 05/06/2023 10:47 AM LEI SELLER AUST Comment: Biotin has been identified by the guideman as a potential interfering substance. Higher concentrations of biotin may be found in multivitamins, hair/nail supplements, and workout supplements. If the result does not match clinical observations, repeat testing after patient refrains from the use of supplements for at least 12 hours. Blood (Blood, Venous) 05/06/2023 9:21 AM LEI SELLER 05/06/2023 9:24 AM LEI SELLER Wellington Valdivia M.D. LAB BLOOD ADD-ON Performing Organization Address [facility] de Phone Number [facility] [address] [place] [address], [facility] - [facility] [address] [place] [address] * Ferritin (05/06/2023 9:21 AM LEI SELLER) Pathologist [facility] Ferritin, S 36 31 - 409 mcg/L 05/06/2023 10:47 AM LEI SELLER AUST Comment: Biotin has been identified by the guideman as a potential interfering substance. Higher concentrations of biotin may be found in multivitamins, hair/nail supplements, and workout supplements. If the result does not match clinical observations, repeat testing after patient refrains from the use of supplements for at least 12 hours. Blood (Blood, Venous) 05/06/2023 9:21 AM LEI SELLER 05/06/2023 9:24 AM LEI SELLER Wellington Valdivia M.D. LAB BLOOD ADD-ON Performing Organization Address [facility] de Phone Number [facility] [address] [place] [address], [facility] - [facility] [address] [place] [address] * Vitamin B12 Assay (05/06/2023 9:21 AM LEI SELLER) Pathologist [facility] Vitamin B12 Assay, S 432 232 - 1245 ng/L 05/06/2023 10:47 AM LEI SELLER AUST Comment: Biotin has been identified by the guideman as a potential interfering substance. Higher concentrations of biotin may be found in multivitamins, hair/nail supplements, and workout supplements. If the result does not match clinical observations, repeat testing after patient refrains from the use of supplements for at least 12 hours. Blood (Blood, Venous) 05/06/2023 9:21 AM LEI SELLER 05/06/2023 9:24 AM LEI SELLER Wellington Valdivia M.D. LAB BLOOD ADD-ON Performing Organization Address [facility] Co de Phone Number [facility] [address] [place] [address], [facility] - [facility] [address] [place] [address] * UT RMVL IMPACT CERUMEN IRRIG UNILAT (04/11/2023 3:40 PM LEI SELLER) Narrative MMODAL - 04/11/2023 3:40 PM LEI SELLER Palak Castanon L.P.N. ? 04/11/2023 ??4:11 PM Ear cerumen removal Performed by: Palak Castanon L.P.N. Authorized by: Palak Mike MPAS, P.A.-C. ?? Care team members present 1. Palak Mike MPAS, P.A.-C. 2. Palak Castanon L.P.N. PROCEDURE DETAILS Location: left ear and right ear Procedure type: irrigation ?? Comments: ??Pt tolerated well CONSENT Consent obtained: verbal Consent given by: patient The benefits, risks and alternatives to the procedure and the potential need for sedation or anesthesia as well as the names, roles, and responsibilities of healthcare team members performing significant interventional tasks were discussed with the patient and/or decision maker. PRE-PROCEDURE DETAILS Indication: cerumen impaction SEDATION / ANESTHESIA Anesthesia method: none POST-PROCEDURE DETAILS Inspection: complete impaction removal Hearing quality: normal Procedure completed successfully: yes ?? Complications: no immediate complications ?? COMMENTS Pt tolerated well Palak MARION P.A.-C. PROCEDURE/AL NOR SURGICAL ORDERABLES Performing Organization Address [facility] Co de Phone Number [facility]AL NA * (ABNORMAL) EXT Home SARS Coronavirus-2 (COVID-19) Antigen (03/25/2023) EXT Home SARS-CoV-2 Antigen Presumptive Positive(A) Presumptive Negative OTHER (SPECIFY IN ROAD ENGINEER) Swab 03/25/2023 Historical Provider LAB MICROBIOLOGY - G ENERAL ORDERABLES OTHER (SPECIFY IN ROAD ENGINEER) N/A from Last 3 Months Advance Directives For more information, please contact: [phone] Latest Code Status on File Code Status Date Activated Date Inactivated Comments Full Code 06/06/2022 11:35 AM 06/06/2022 2:01 PM Question Answer Comments Full Code: Discussed Code Status History Code Status Date Activated Date Inactivated Comments Full Code 12/28/2020 2:52 PM 01/07/2021 4:39 PM Question Answer Comments Full Code: Discussed Care Teams Corn 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 [address] [place] [phone] PCP - General Internal Medicine 02/05/22
--- OUTSIDE RECORDS SUMMARY | 2023-06-19 09:27 | XMS_ITS | Encounter Summary ---
Author Name Unknown Organization [facility] Address [address] [place] [address] Care Team Providers Care Heel Brusher Name Role Phone Cooper Jolly M.D. Primary Care Provid er Encounter Details Date Type Department Care Team (Latest Contact Info) Description 05/23/2023 Clinical Communication Department of Cardiovascular Diseases in [place], [place] [address] [place] [phone] Kamryn Alvarado, SENIOR MECHANICAL ENGINEER, C.N.P. [address] [place] [phone] Social History Tobacco Use Types Packs/Day Years Used Date Smoking Tobacco: Former Cigarettes 1 10 Q uit: 1976 Passive Smoke Exposure: Past Smokeless Tobacco: Never Alcohol Use Standard Drinks/Week Comments Not Currently [...] 04/09/2022 How often do you attend chur or sabianist services? More than 4 times per year 04/09/2022 Do you belong to any clubs o r organizations such as samaritan groups, unions, fraternal or athletic groups, or [...] Answer Date Recorded PHQ-2 Score 0 04/24/2023 [facility] - Occupational [...] your living situation today? I have a [facility] place to live 02/03/2023 Education Answer Date Recorded What is the highest level of school you have completed or the highest degree you have received? 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 [address] [place] [phone] (Work) 06/21/2023 9:00 AM SALVAGE MACHINE OPERATOR Comprehensive Visit Department of Ophthalmology in [place], [place] [address] [place] [phone] Brigid Hernandez M.D. [address] [place] [phone] 07/17/2023 12:30 PM SALVAGE MACHINE OPERATOR Infusion Department of Infusion Therapy in [place], [place] [address] [place] [phone] Kamryn Alvarado, KIMANI, C.N.P. [address] [place] [phone] 09/04/2023 7:00 AM CDT Appointment Department of Laboratory Medicine in [place], [place] [address] [place] [phone] Wellington Valdivia M.D. [address] [phone] documented as of this encounter Visit Diagnoses Not on filedocumented in this encounter Additional Health Concerns Assessment Noted Time PHQ-9 Depression Total Score: 0 04/09/20 9:36 AM SALVAGE MACHINE OPERATOR documented as of this encounter Care Teams Heel Brusher Relationship Specialty Start Date End Date Cooper Jolly M.B.B.SDionna, MHanna. [address] [phone] PCP - General Internal Medicine 02/05/22 documented as of this encounter
--- OUTSIDE RECORDS SUMMARY | 2023-06-19 09:27 | XMS_ITS | Encounter Summary ---
Author Name [facility] Organization [facility] Address [address] [place] [address] Support Name Relationship Address Phone JUSTO BERTRAND Next of Kin [phone] [id number] [facility] [place] [id number] Insurance Providers: All historical and current [...] Andrade's Name Patient's Relationship to Policy [facility]rade [facility] ([facility] MEDICARE ADVANTAGE [facility] (WN) May 27, 2022 [id number] [phone] [place] PATIENT [employer] [facility] (WNR) MEDICARE ADVANTAGE [facility] (WNR) Oct 26, 2015 [id number] [place] PATIENT Selected Encounter This section includes the information on record at CO for the Encounter. Date/Time Encounter Type Encounter Description Reason Provider Source Jun 04, 2023 11:30 AM Outpatient Encounter TELEPHONE PRIMARY CARE ICD-10-CM E78.2 Mixed hyperlipidemia [facility] Encounter Template Text not used by CO Assessments - Encounter Diagnoses This section includes the primary and secondary diagnoses documented for the Encounter. Date/Time Primary/Secondary Diagnosis Diagnosis Name Provider Source Jun 04, 2023 11:30 AM PRIMARY Mixed hyperlipidemia [facility] CBKELLEY Jun 04, 2023 11:30 AM SECONDARY Encounter for immunization safety counseling [facility] Plan of Treatment: Future Appointments (+ 6 months) and Future Tests (+/- 45 days) The Plan of Treatment section includes future care activities for the patient from all CO treatmentfacilities. This section includes future appointments and future orders which are active, pending or scheduled. Future Appointments This section includes appointments that were scheduled to occur 6 months from the date of the Encounter, up to a maximum of 20 appointments. The data comes from all CO treatment facilities. Appointment Date/Time Appointment Type Appointme nt Facility Name Jun 24, 2023 08:30 AM AMBULATORY - MEDICINE [facility] Social History: Smoking Status (Most current) and Tobacco Use (All prior to encounter date) This section includes the most current, and the historical, smoking and tobacco- related health factors from the CO facility where the Encounter took place. Current Smoking Status This section includes the most current smoking, or tobacco-related health factor, from the CO facility where the Encounter took place. Date/Time Current Smoking Status Comment Facil ity Jul 20, 2022 10:00 AM VA-TOBACCO FORMER USER [facility] Tobacco Use History This section includes a history of the smoking, or tobacco-related health factors, that were collected on or before the date of the Encounter. The data comes from the CO facility where the Encounter took place. Date/Time Smoking Status/Tobacco Use Comment F acility Jul 20, 2022 10:00 AM VA-TOBACCO QUIT 15 YRS OR MORE [facility] Jul 19, 2021 10:30 AM VA-TOBACCO FORMER USER [facility] Jul 19, 2021 10:30 AM VA-TOBACCO QUIT 15 YRS OR MORE [facility] Jul 13, 2020 09:00 AM VA-TOBACCO FORMER USER [facility] Jul 13, 2020 09:00 AM VA-TOBACCO QUIT [...] 2015 08:29 AM LIFETIME NON-TOBACCO USER [facility] Aug 25, 2014 08:57 AM FORMER TOBACCO USER 7Y OR GREATE R [facility] Sep 10, 2013 10:00 AM FORMER TOBACCO USER 7Y OR CARISAE R [facility] Advance Directives: All historical and current Section Date Range: From patient's date of to the date document was created. This section includes ALL of a patient's completed or amended CO Advance and Rescinded Directives. The entries below indicate that a directive exists for the patient, but an actual copy is not included with this document. The data comes from all CO facilities. Date Advance Directives Provider Source Jul 15, 2008 ADVANCE DIRECTIVE DEBRA SR [facility] Jul 15, 2008 ADVANCE DIRECTIVE DISCUSSION [facility] Jun 28, 2008 ADVANCE DIRECTIVE DISCUSSION [facility] Encounter Notes: All associated encounter notes This section contains the clinical notes associated to the Encounter. Date/Time Encounter Note(s) Provider Source Jun 04, 2023 11:07 AM PACT NOTE: LOCAL TITLE: MEDICINE CLINIC PROVIDER TELEPHONE NOTE STANDARD TITLE: PACT NOTE DATE OF NOTE: JUN 04, 2023@11:07 ENTRY DATE: JUN 04, 2023@11:07:37 AUTHOR: [facility] COSIGNER: URGENCY: STATUS: COMPLETED Verbal consent for telephone appointment was obtained. I confirmed the address of the patient and his emergency contact phone number. He is currently at his home address as listed on the demographic sheet. History: The patient states he was started on inclisiran, an injectable medication for his lipids. He states his cholesterol profile was abnormal despite rosuvastatin 40 mg and ezetimibe 10 mg. He does not have his numbers in front of him right now but will bring them at his upcoming appointment with me on June 24. He tolerated his first injection and it will be repeated in a couple months. There is a 3-month interval for this. He states it was billed as $8500 from [place]. He had to pay $700 of that. He is wondering if he can get a care in the community consultation with cardiology for lipid management given that he has chronic ischemic heart disease and AAA. He is wondering if he can get an RSV vaccine through the CO. Objective: No distress noted during our conversation. Normal thought processing and speech production. Assessment/Plan: #. Hyperlipidemia. [facility] lipid profile [facility] ezetimibe. I told him to bring his most recent lipid panel that prompted the new medication. He has an appointment coming up June 24 and we will discuss this further. I told him it was unlikely that the [facility] would cover the very expensive new medication, but there are other options that could be covered. #. RSV counseling. We had a discussion today specifically about increased risk of Guillain-Clement?? syndrome (approximately 1 and 10,000) and slight risk of atrial fibrillation within 30 days of vaccine administration. He is going to think about whether or not he wants to have this vaccine given these risks. 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 Physician, Darian CRISTINA Signed: 06/04/2023 12:04 [facility]
--- OUTSIDE RECORDS SUMMARY | 2023-06-19 09:27 | XMS_ITS | Referral Summary ---
Author Name Unknown Organization [facility] Address [address] [place] [address] Care Team Providers Care Wheel Blocker Name Role Phone Cooper Jolly M.D. Primary Care Provid er Source Comments Patient records contain information from all sites at [facility]. For routine questions regarding patient records, call [phone] during business hours, M-F 8:00 AM - 5:00 PM Central Time. Record requests for emergency care only can be directed to [phone] at any time.[facility] Encounters Date Type Department Care Team Description 06/13/2023 10:10 AM [employer] Office Visit Department of Ophthalmology in [place], [place] [address] [phone] Alanis Barker O.D. Conjunctivitis Acute Left (Primary Dx); Epiphora Left; Dry Eye Syndrome Bilateral Discharge Disposition: Home or Self Care 05/28/2023 Orders Only [facility] Cooper Jolly M.B.B.S., MRakan 05/23/2023 Clinical Communication Department of Cardiovascular Diseases in [place], [place] [address] [phone] Kamryn Alvarado, KIMANI, C.N.P. 05/09/2023 10:00 AM [employer] Office Visit Department of Cardiovascular Diseases in [place], [place] [address] [phone] Wellington Valdivia M.D. Replacement Aortic Valve Tissue (Primary Dx); Coronary Artery 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 Pectoris; Cardiomyopathy (HCC); Ectopy Ventricular; Hyperlipidemia Mixed; Elevated Lipoprotein A; Thoracic Aortic Aneurysm Without Rupture Unspecified (HCC); Apnea Sleep Obstructive; Drug Induced Erectile Dysfunction; Anemia Iron Deficiency; Pain Chest Atypical; Hernia Ventral Discharge Disposition: Home or Self Care 05/06/2023 9:14 AM [employer]EMENT - 05/06/2023 11:59 PM [employer] Hospital Encounter Department of Laboratory Medicine in [place], [place] [address] [phone] Wellington Valdivia M.D. Coronary Artery 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 Pectoris; Hyperlipidemia Mixed; Elevated Lipoprotein A; Anemia Iron Deficiency Discharge Disposition: Home or Self Care 04/24/2023 10:00 AM [employer] Comprehensive Visit Department of Internal Medicine in [place], [place] [address] [phone] Cooper Jolly M.B.B.S., M.D. Coronary Artery 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 Pectoris (Primary Dx); Bypass Coronary Artery Graft Status Post; Hyperlipidemia Mixed; Replacement Aortic Valve Tissue; Loss Hearing Bilateral; Tinnitus Bilateral; Post COVID-19 Condition; Hernia Ventral; Apnea Sleep Obstructive; Swelling Leg; Gastroesophageal Reflux Disease Without Esophagitis Discharge Disposition: Home or Self Care 04/16/2023 1:30 PM [employer] Infusion Department of Infusion Therapy in [place], [place] [address] [phone] Kamryn Alvarado, KIMANI, C.N.P. COVID-19 Infection (Primary Dx); Hyperlipidemia Mixed; Atherosclerotic Heart Disease Of [place] Coronary Artery Without Angina Pectoris 04/11/2023 3:40 PM [employer] Office Visit [facility] in [place], [place] [address] [place] [phone] Palak Mike MPAS, P.A.-C. Cerumen Impacted Bilateral (Primary Dx) 04/11/2023 1:45 PM [employer]EMENT Office Visit Department of Orthopedic Surgery in [place], [place] [address] [phone] Gregg Ferguson D.P.M. Lau, Emilee J Pain Joint Foot Bilateral (Primary Dx) Discharge Disposition: Home or Self Care 04/08/2023 Clinical Communication Department of Orthopedic Surgery in [place], [place] [address] [phone] Gregg Ferguson D.P.M. 03/28/2023 10:15 AM CDT Infusion Department of Infusion Therapy in [place], [place] [address] [place] [address] Francisca Saenz APRN, C.N.P., D.N.P. COVID-19 Infection (Primary Dx) 03/27/2023 2:15 PM CDT Infusion Department of Infusion Therapy in [place], [place] [address] [place] [address] Francisca Saenz APRN, C.N.P., D.N.P. COVID-19 Infection (Primary Dx) 03/26/2023 2:15 PM CDT Infusion Department of Infusion Therapy in [place], [place] [address] [facility] [place] [address] Francisca Saenz APRN, C.N.P., D.N.P. COVID-19 Infection (Primary Dx) 03/25/2023 Clinical Communication [facility] Care at the [facility] on the 4th Floor [address] [place] [address] Gayatri Starkey R.N. COVID Treatment Review 03/25/2023 Nurse Triage Department of Internal Medicine in [place], [place] [address] [phone] Danelle Tim R.N. COVID Nurse Line from Last 3 Months Allergies Active Allergy Reactions Criticality Noted Date [...] will proceed with colonoscopy at this time Leticia Impacted Bilateral 04/10/2022 Overview: Rinsed in the clinic Hernia Ventral 04/09/2022 Overview: 2/2 consequence of open heart surgery - CT [...] Overview: Added automatically from request for surgery [id number] COVID-19 Infection 01/25/2022 Leukocytosis 01/07/2021 Retained Metal Fragments 01/03/2021 Hyponatremia 01/01/2021 Hypokalemia 01/01/2021 Anemia Posthemorrhagic Acute (Blood Loss Anemia) 01/01/2021 Therapy Retirement Antiplatelet 01/01/2021 Retention Urinary 12/30/2020 Replacement Aortic Valve Tissue 12/28/2020 Overview: S/p aortic valve replacement 12/28/2020 Bypass Coronary Artery Graft Status Post 021 Overview: COLON to LAD 12/28/2020 Continue aspirin OTC Continue metoprolol Obesity Body Mass Index 30-39.9 Adult 12/27/2020 Chronic Kidney Disease Stage 2 Glomerular Filtration Rate 60 To 89 12/27/2020 Atherosclerotic Heart Diseas e Of [place] Coronary Artery Without Angina Pectoris 09/10/2020 Hyperlipidemia Mixed 02/03/2018 Overview: Continue Crestor 40 mg and Zetia 10 mg S/p inclisiran injection Apnea Sleep Obstructive 02/03/2018 Overview: Mild obstructive sleep apnea syndrome - not on CPAP Tubular Adenoma Colon Personal History 8 Overview: Added automatically from request for surgery [id number] Ectopy Ventricular 07/10/2017 Cancer Skin Squamous Cell [...] Rheumatic 02/03/2018 09/06/2021 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 Immunizations Name Administration Dates Next Due Influenza, [...] quad (FLUZONE/FLUARIX) (6 months and older)(PF) 03/30/2022,03/13/2021,03/02/2019,2017,03/17/2015 Social History Tobacco Use Types Packs/Day Years Used Date Smoking Tobacco: Former Cigarettes 1 10 Q uit: 1977 Passive Smoke Exposure: Past Smokeless Tobacco: Never Tobacco Cessation:Counseling Given: Not Answered Alcohol Use Standard Drinks/Week Comments Not Currently 2 (1 standard drink = 0.6 oz pur e alcohol) largely abstinent since 2016 Humiliation, Afraid, Rape, and Kick questionnair e [...] How often do you attend chur or advent services? More than 4 times per year 04/09/2022 Do you belong to any clubs o r organizations such as christian groups, unions, fraternal or athletic groups, or [...] Answer Date Recorded PHQ-2 Score 0 04/24/2023 [facility] - Occupational Stress Questionnaire Answer Date Recorded [...] your living situation today? [facility] 02/03/2023 Education Answer Date Recorded What is the highest level of school you have completed or the highest degree you have received? Associate degree: occupational, technical, or vocational program 11/30/2020 Sex and Gender Information Value Date Recorded Sex Assigned at Male 04/29/2021 7:37 PM [employer] Gender Identity Male 10/01/2020 9:14 PM CDT Sexual Orientation Straight 10/01/2020 9: 14 PM CDT Last Filed Vital Signs Vital Sign Reading Time Taken Comments Blood Pressure 115/69 05/09/2023 9:47 AM [employer]EMENT Pulse 62 05/09/2023 9:47 AM [employer]EMENT Temperature 35.8 ??C (96.4 ??F) 04/24/2023 9:48 AM CS T Respiratory Rate 18 04/24/2023 9:48 AM [employer]EMENT Oxygen Saturation 100% 05/09/2023 9:47 AM [employer]EMENT Inhaled Oxygen Concentration - - Weight 125 kg (276 lb 7.3 oz) 05/09/2023 9:47 AM [employer]GEMENT Height 182.7 cm (5' 11.93) 04/24/2023 9:[address] Body Mass Index 37.57 04/24/2023 9:48 AM [employer]EMENT Plan of Treatment Upcoming Encounters Date Type Department Care Team (Late st Contact Info) Description 06/21/2023 8:30 AM [employer] Ancillary Procedure Department of Ophthalmology in [place], [place] [address] [place] [address] Alanis Barker O.D. [address] [place] [phone] (Work) 06/21/2023 9:00 AM [employer] Comprehensive Visit Department of Ophthalmology in [place], [place] [address] [place] [address] Brigid Hernandez M.D. [address] [place] [address] 07/17/2023 12:30 PM [employer] Infusion Department of Infusion Therapy in [place], [place] [address] [phone] Kamryn Alvarado APRN, C.N.P. [address] [phone] 09/04/2023 7:00 AM CDT Appointment Department of Laboratory Medicine in [place], [place] [address] [phone] Wellington Valdivia M.D. [address] [phone] Medical Devices Implanted Type Area Spray Gun Repairer Helper Device Identifier Shelf Expiration Date Model / Serial / Lot Vlv Aort Prm Ease Tfx Bovn 29 - [id number] - [id number] Implanted:Qty : 1 on 12/28/2020 by Ian Love M.D. at [facility] Cardiac Valve Prosthesis N/A: Heart [employer] 07/27/2024 [id number] / [id number] / Description:Implanted into t he aortic position Clp Hrzn Ti 24 Clp Sm Red - [id number] Implanted:Qty : 1 on 12/28/2020 by Ian Love M.D. at [facility] Hardware e.g. pins/screws/ro ds N/A: [employer] [id number] / / Procedures Procedure Name Priority Date/Time Associated Diagnosis Comments BASIC METABOLIC PANEL, S/P Routine 05/06/2023 9:22 AM [employer]EMENT Coronary Artery 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 Pectoris LIPID PANEL, S Routine 05/06/2023 9:22 AM [employer]EMENT Coronary Artery 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 Pectoris Hyperlipidemia Mixed Elevated Lipoprotein A THYROID FUNCTION CASCADE, S Routine 05/06/2023 9:21 AM [employer]GEMENT Hyperlipidemia Mixed LACTATE DEHYDROGENASE (LD), S Routine 05/06/2023 9:21 AM [employer]NAGEMENT Anemia Iron Deficiency HAPTOGLOBIN, S Routine 05/06/2023 9:21 AM [employer]GEMENT Anemia Iron Deficiency FOLATE, S Routine 05/06/2023 9:21 AM [employer]GEMENT Anemia Iron Deficiency VITAMIN B12 ASSAY, S Routine 05/06/2023 9:21 AM [employer]NAGEMENT Anemia Iron Deficiency FERRITIN, S Routine 05/06/2023 9:21 AM [employer]GEMENT Anemia Iron Deficiency CBC WITHOUT DIFFERENTIAL, B Routine 05/06/2023 9:21 AM [employer]GEMENT Anemia Iron Deficiency APOLIPOPROTEIN B, P Routine 05/06/2023 9 :21 AM [employer]NAGEMENT Coronary Artery 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 Pectoris Hyperlipidemia Mixed Elevated Lipoprotein A VT RMVL IMPACT CERUMEN IRRIG UNILAT Routine 04/11/2023 3:40 PM [employer] MANAGEMENT Cerumen Impacted Bilateral EXTM HOME SARS CORONAVIRUS-2 (COVID-19) ANTIGEN, V Routine 03/25/2023 from Last 3 Months Results * Lipid Panel (05/06/2023 9:22 AM [employer] SALES [employer] MANAGEMENT) Triglycerides 114 mg/dL 05/06/2023 9:53 AM [employer] SALES [employer] MANAGEMENT AUST Comment: ----REFERENCE VALUE---- Normal: <150 mg/dL Borderline High: 150-199 mg/dL High: 200-499 mg/dL Very High: > or =500 mg/dL Cholesterol, Total 113 mg/dL 2022 9:53 AM [employer]NAGEMENT AUST Comment: ----REFERENCE VALUE---- Desirable: < 200 mg/dL Borderline High: 200 - 239 mg/dL High: > or = 240 mg/dL Cholesterol, LDL, Calculated 39 mg/dL 05/06/2023 9:53 AM [employer]ES [employer] MANAGEMENT AUST Comment: ----REFERENCE VALUE---- Desirable: <100 mg/dL Above Desirable: 100-129 mg/dL Borderline High: 130-159 mg/dL High: 160-189 mg/dL Very High: >=190 mg/dL ----ADDITIONAL INFORMATION---- LDL cholesterol calculated using the Stacy/NIH equation. Cholesterol, HDL 53 >=40 mg/dL 05/06/20 9:53 AM [employer] SALES [employer] MANAGEMENT AUST Cholesterol, Non-HDL, Calculated 60 mg/dL 05/06/2023 9:53 AM [employer] SALES [employer] MANAGEMENT AUST Comment: ----REFERENCE VALUE---- Desirable: <130 mg/dL Above Desirable: 130-159 mg/dL Borderline High: 160-189 mg/dL High: 190-219 mg/dL Very High: > or =220 mg/dL Fasting (8 HR or more) y 05/06/2023 9:24 AM [employer] MANAGEMENT AUST Blood (Blood, Venous) 05/06/2023 9:22 AM [employer] SALES [employer] MANAGEMENT 05/06/2023 9:24 AM [employer] SALES [employer] MANAGEMENT Wellington Valdivia M.D. LAB BLOOD ADD-ON [facility] [address] [place] [address], [facility] AUST [place] [facility] [address] [place] [address] * (ABNORMAL) Basic Metabolic Panel (05/06/2023 9:22 AM [employer] SALES [employer] MANAGEMENT) Potassium, P 5.3(H) 3.6 - 5.2 mmol/L 05/06/2023 9:53 AM [employer] SALES [employer] MANAGEMENT AUST Sodium, P 141 135 - 145 mmol/L 05/06/2023 9:53 AM [employer] SALES [employer] MANAGEMENT AUST Chloride, P 105 98 - 107 mmol/L 05/06/2023 9:53 AM [employer] SALES [employer] MANAGEMENT AUST Bicarbonate, P 29 22 - 29 mmol/L 05/06/2023 9:53 AM [employer] SALES [employer] MANAGEMENT AUST Anion Gap, P 7 7 - 15 05/06/2023 9:53 AM [employer] MANAGEMENT AUST BUN (Blood Urea Nitrogen), P 17 8 - 24 mg/dL 05/06/2023 9:53 AM [employer]ES [employer] MANAGEMENT AUST Creatinine 1.14 0.74 - 1.35 mg/dL 05/06/2023 9:53 AM [employer] SALES [employer] MANAGEMENT AUST Estimated GFR (eGFR) 67 >=60 mL/min/BSA 05/06/2023 9:53 AM [employer] SALES [employer] MANAGEMENT AUST Comment: Estimated GFR calculated using the 2020 CKD_EPI creatinine equation. Calcium, Total, P 9.4 8.8 - 10.2 mg/dL 05/06/2023 9:53 AM [employer] SALES [employer] MANAGEMENT AUST Glucose, P 110 70 - 140 mg/dL 05/06/2023 9:53 AM [employer] SALES [employer] MANAGEMENT AUST Blood (Blood, Venous) 05/06/2023 9:22 AM [employer] SALES [employer] MANAGEMENT 05/06/2023 9:24 AM [employer] SALES [employer] MANAGEMENT Wellington Valdivia M.D. LAB BLOOD ADD-ON Performing Organization Address [facility]/ZIP Co de Phone Number [facility] [address] [place] [address], [facility] [address] * Thyroid Function [place] (05/06/2023 9:21 AM [employer] SALES [employer] MANAGEMENT) Pathologist [facility] TSH, Sensitive 2.6 0.3 - 4.2 mIU/L 05/06/2023 10:47 AM [employer] SALES [employer] MANAGEMENT AUST Blood (Blood, Venous) 05/06/2023 9:21 AM [employer] SALES [employer] MANAGEMENT 05/06/2023 9:24 AM [employer] SALES [employer] MANAGEMENT Wellington Valdivia M.D. LAB BLOOD ADD-ON Performing Organization Address [facility]/ZIP Co de Phone Number [facility] [address] [place] [address], [facility] - [facility] [address] [place] [address] * Apolipoprotein B (05/06/2023 9:21 AM [employer] SALES [employer] MANAGEMENT) Pathologist [facility] Apolipoprotein B, S 60 mg/dL 05/07 12:25 PM [employer] SALES [employer] MANAGEMENT DTL Comment: ----REFERENCE VALUE---- Desirable: <90 Above Desirable: 90-99 Borderline high: 100-119 High: 120-139 Very high: > or = 140 Blood (Blood, Venous) 05/06/2023 9:21 AM [employer] MANAGEMENT 05/07/2023 7:49 AM [employer] SAL[employer] MANAGEMENT Wellington Valdivia M.D. LAB BLOOD NON ADD -ON Performing Organization Address City/[facility]/ZIP Co de Phone Number [facility] [address] [place] [address], [place] DTL [facility] [address] [place] [address] * CBC without Differential (05/06/2023 9:21 AM [employer]NAGEMENT) Hemoglobin 13.2 13.2 - 16.6 g/dL 05/06/2023 9:29 AM [employer] SAL[employer] MANAGEMENT AUST Hematocrit 41.7 38.3 - 48.6 % 05/06/2023 9:29 AM [employer]NAGEMENT AUST Erythrocytes 4.40 4.35 - 5.65 x10(12)/L 05/06/2023 9:29 AM [employer] MANAGEMENT AUST MCV 94.8 78.2 - 97.9 fL 05/06/2023 9:29 AM [employer] AUST RBC Distrib Width 12.2 11.8 - 14.5 % 05/06/2023 9:29 AM [employer] MANAGEMENT AUST Platelet Count 158 135 - 317 x10(9)/L 05/06/2023 9:29 AM [employer] SALES [employer] MANAGEMENT AUST Leukocytes 5.4 3.4 - 9.6 x10(9)/L 05/06/2023 9:29 AM [employer] SAL[employer] MANAGEMENT AUST Blood (Blood, Venous) 05/06/2023 9:21 AM [employer] SALES [employer] MANAGEMENT 05/06/2023 9:24 AM [employer] SALES [employer] MANAGEMENT Wellington Valdivia M.D. LAB BLOOD ADD-ON Performing Organization Address City/[facility]/ZIP Co de Phone Number [facility] [address] [place] [address], [place] AUST [facility] [address] [place] [address] * (ABNORMAL) LD (Lactate Dehydrogenase) (05/06/2023 9:21 AM [employer] SALES [employer] MANAGEMENT) Lactate Dehydrogenase (LD), P 250(H) 122 - 222 U/L 05/06/2023 9:50 AM [employer] SALES [employer] MANAGEMENT AUST Blood (Blood, Venous) 05/06/2023 9:21 AM [employer] SALES [employer] MANAGEMENT 05/06/2023 9:24 AM BR[employer] SERVICE SALES AND MANAGEMENT Wellington Valdivia M.D. LAB BLOOD NON ADD -ON Performing Organization Address City/[facility]/ZIP Co de Phone Number [facility] [address] [place] [address], [facility] AUST [facility] [address] [place] [address] * Haptoglobin (05/06/2023 9:21 AM [employer] SALES [employer] MANAGEMENT) Haptoglobin, S 143 30 - 200 mg/dL 05/06/2023 2:43 PM BR[employer] SERVICE SALES AND MANAGEMENT MKTO Blood (Blood, Venous) 05/06/2023 9:21 AM [employer] SALES [employer] MANAGEMENT 05/06/2023 2:13 PM [employer]ICE SALES [employer] MANAGEMENT Wellington Valdivia M.D. LAB BLOOD ADD-ON Performing Organization Address [facility] Co de Phone Number [facility] [place] [address], [facility] in [place] [address] [place] [address] * Folate (05/06/2023 9:21 AM [employer] SALES [employer] MANAGEMENT) Folate, S 12.1 >=4.0 mcg/L 05/06/2023 10:47 AM [employer]ES [employer] MANAGEMENT AUST Comment: Biotin has been identified by the site safety representative as a potential interfering substance. Higher concentrations of biotin may be found in multivitamins, hair/nail supplements, and workout supplements. If the result does not match clinical observations, repeat testing after patient refrains from the use of supplements for at least 12 hours. Blood (Blood, Venous) 05/06/2023 9:21 AM [employer] SALES [employer] MANAGEMENT 05/06/2023 9:24 AM [employer] SALES [employer] MANAGEMENT Wellington Valdivia M.D. LAB BLOOD ADD-ON Performing Organization Address [facility] Co de Phone Number [facility] [address] [place] [address], [facility] - [facility] [address] [place] [address] * Ferritin (05/06/2023 9:21 AM [employer] SALES [employer] MANAGEMENT) Ferritin, S 36 31 - 409 mcg/L 05/06/2023 10:47 AM [employer] SALES [employer] MANAGEMENT AUST Comment: Biotin has been identified by the site safety representative as a potential interfering substance. Higher concentrations of biotin may be found in multivitamins, hair/nail supplements, and workout supplements. If the result does not match clinical observations, repeat testing after patient refrains from the use of supplements for at least 12 hours. Blood (Blood, Venous) 05/06/2023 9:21 AM [employer] SALES [employer] MANAGEMENT 05/06/2023 9:24 AM [employer] SERVICE SALES [employer] MANAGEMENT Wellington Valdivia M.D. LAB BLOOD ADD-ON Performing Organization Address [facility] de Phone Number [facility] [address] [place] [address], [facility] - [address] [address] * Vitamin B12 Assay (05/06/2023 9:21 AM [employer] SALES [employer] MANAGEMENT) Pathologist [facility] Vitamin B12 Assay, S 432 232 - 1245 ng/L 05/06/2023 10:47 AM [employer] SALES [employer] MANAGEMENT AUST Comment: Biotin has been identified by the site safety representative as a potential interfering substance. Higher concentrations of biotin may be found in multivitamins, hair/nail supplements, and workout supplements. If the result does not match clinical observations, repeat testing after patient refrains from the use of supplements for at least 12 hours. Blood (Blood, Venous) 05/06/2023 9:21 AM [employer] SALES [employer] MANAGEMENT 05/06/2023 9:24 AM BR[employer] SERVICE SALES AND MANAGEMENT Wellington Valdivia M.D. LAB BLOOD ADD-ON Performing Organization Address City/[facility]/ZIP Co de Phone Number [facility] [address] [place] [address], [facility] AUST [facility] [address] [place] [address] * [place] RMVL IMPACT CERUMEN IRRIG UNILAT (04/11/2023 3:40 PM [employer] SALES [employer] MANAGEMENT) Narrative MMODAL - 04/11/2023 3:40 PM [employer] SALES [employer] MANAGEMENT Palak Castanon L.P.N. ? 04/11/2023 ??4:11 PM Ear cerumen removal Performed by: Palak Castanon L.PGuerrero Authorized by: Palak Mike MPAS P.ADionna-C. ?? Care team members present 1. Palak [...] complications ?? COMMENTS Pt tolerated well Palak MARION, P.A.-C. PROCEDURE/OH NOR SURGICAL ORDERABLES Performing Organization Address [facility] de Phone Number MMODAL NA * (ABNORMAL) EXT Home SARS Coronavirus-2 (COVID-19) Antigen (03/25/2023) EXT Home SARS-CoV-2 Antigen Presumptive Positive(A) Presumptive Negative OTHER (SPECIFY IN ORE STORAGE DRIER) Swab 03/25/2023 Historical Provider LAB MICROBIOLOGY - G ENERAL ORDERABLES Performing Organization Address [facility] Co de Phone Number OTHER (SPECIFY IN ORE STORAGE DRIER) N/A from Last 3 Months Advance Directives For more information, please contact: [phone] Latest Code Status on File Code Status Date Activated Date Inactivated Comments Full Code 06/06/2022 11:35 AM 06/06/2022 2:01 PM Question Answer Comments Full Code: Discussed Code Status History Code Status Date Activated Date Inactivated Comments Full Code 12/28/2020 2:52 PM 01/07/2021 4:39 PM Question Answer Comments Full Code: Discussed Care Teams Wheel Blocker Relationship Specialty Start Date End Date Cooper Jolly M.B.BDionnaSDionna, M.D. [address] [place] [phone] PCP - General Internal Medicine 02/05/22
--- OUTSIDE RECORDS SUMMARY | 2023-06-19 09:27 | XMS_ITS | Encounter Summary ---
Author Name Unknown Organization [facility] Address [address] [place] [address] Care Team Providers Care Distribution A Class Lineman Name Role Phone Unavailable Primary Care Provider Unavailabl e Encounter Details Date Type Department Care Team Description 02/07/2023 Orders Only CARDIAC-PULMONARY [address] [place] [address] Lindy Ferrara, RUSS [address] [phone] Encounter for routine history and physical exam for male (Primary Dx) Social History Tobacco Use Types Packs/Day Years Used Date Smoking Tobacco: Never Assessed Sex and Gender Information Value Date Recorded Sex Assigned at Not on file Gender Identity Not on file Sexual Orientation Not on file documented as of this encounter Plan of Treatment Not on file documented as of this encounter Visit Diagnoses Diagnosis Encounter for routine history and physical exam for male- Primary Routine general medical examination at a health care facility documented in this encounter
--- OUTSIDE RECORDS SUMMARY | 2023-06-19 09:27 | XMS_ITS ---
Author Name Unknown Organization [facility] Address [address] [place] [address] Care Team Providers Care Center Director Lead Teacher Name Role Phone Unavailable Unavailable Unavailable Surgery Details Not on file Complications Check Surgery Details section. Procedure Estimated Blood Loss Check Surgery Details section. Procedure Findings Check Surgery Details section. Procedure Specimens Taken Check Surgery Details section.
--- OUTSIDE RECORDS SUMMARY | 2023-06-19 09:27 | XMS_ITS | Continuity of Care Document ---
Author Name Unknown Organization [facility] Address [address] [place] [phone] Encounter 11/07/22 - 11/07/22 [facility] [address] [place] [address]- [place] Discharge Disposition: Discharged to Home or Self Care Attending Physician: Jose PRITCHARD, Nicolasa Brenner
--- OUTSIDE RECORDS SUMMARY | 2023-06-19 09:27 | XMS_ITS | Clinical Summary ---
Author Name Unknown Organization [employer] [facility] Address [address] [place] [address] Care Team Providers Care Street Car Mechanic Name Role Phone Unavailable Primary Care Provider Unavailabl e Source Comments If you need additional information that is not available on Care Everywhere, please contact our Medical Records Department during business hours (Saturday - Saturday, 8 am - 5 pm) at . During nonbusiness hours, please contact our Trauma and Emergency Center at .[facility] Social History Tobacco Use Types Packs/Day Years Used Date Smoking Tobacco: Never Assessed Sex and Gender Information Value Date Recorded Sex Assigned at Not on file Gender Identity Not on file Sexual Orientation Not on file Plan of Treatment Health Maintenance Due Date Last Done Comments HEPATITIS C SCREENING 1948 DEPRESSION/ANXIETY PHQ4 1960 LIPID SCREEN 01/05/1966 WELLNESS VISIT 01/05/1966 PERTUSSIS 01/05/1967 COLONOSCOPY 01/05/1993 DIABETES SCREENING 01/05/1993 RSV Vaccine (1 - 1-dose 60+ series) 2008 COVID-19 Vaccine ( season) 2023 05/02/2022, 09/12/2021, 03/25/2021, Additional history exists INFLUENZA (#1) 2023 03/30/2022, 02/24, 02/08/2020, Additional history exists DTaP/Tdap/Td Vaccine (2 - Td or Tdap) 07/21/2023 07/21/2013, 06/05/2005 SHINGLES VACCINE (SHINGRIX) Completed 10/29/2019, 0 07/15/2019 PNEUMOCOCCAL AGES 65 YEARS OR MORE Completed 05/02/2022, 07/21/2013 POLIO (IPV) Vaccine Aged Out No longe r eligible based on patient's age to complete this topic
--- OUTSIDE RECORDS SUMMARY | 2023-06-19 09:27 | XMS_ITS | Encounter Summary ---
Author Name Unknown Organization [facility] Address [address] [place] [address] Care Team Providers Care Helminthology Teacher Name Role Phone Cooper Jolly M.D. Primary Care Provid er Reason for Referral * Outpatient (Routine) - Authorized Specialty Diagnoses / Procedures Referred By Contac t Referred To Contact Cooper Jolly M.B.B.S., M.D. [address] [phone] [facility] Referral ID Status Reason Start Date Expiration Date V isits Requested Visits Authorized [id number] Authorized 05/28/2023 05/27/2026 1 1 Scheduling Instructions Nurse AWV Do not schedule prior to due date to ensure insurance coverage Visit: Medicare Annual Wellness due on 04/10/2023. ERTY INSPECTOR Encounter Details Date Type Department Care Team (Late st Contact Info) Description 05/28/2023 Orders Only [facility] KRYST[address] Cooper Jolly M.B.B.S., Ian [address] [phone] Social History Tobacco Use Types Packs/Day Years [...] week 04/09/2022 How often do you attend [facility] or taoist services? More than 4 times per year 04/09/2022 Do you belong to any clubs o r organizations such as temple groups, unions, fraternal or athletic groups, or [...] Answer Date Recorded PHQ-2 Score 0 04/24/2023 [facility] Occupat ional Health - Occupational Stress [...] money to buy more. Never true 02/04/20 Within the past 12 months, t he [...] your living situation today? I have a [facility] place to live 02/03/2023 Education Answer Date Recorded What is the highest level of school you have completed or the highest degree you have received? Associate degree: occupational, technical, or vocational program 11/30/2020 Sex and Gender Information Value Date Recorded Sex Assigned at Male 04/29/2021 7:37 PM PROPERTY INSPECTOR Gender Identity Male 10/01/2020 9:14 PM CDT Sexual Orientation Straight 10/01/2020 9: 14 PM CDT documented as of this encounter Plan of Treatment Upcoming Encounters Date Type Department Care Team (Late st Contact Info) Description 06/21/2023 8:30 AM PROPERTY INSPECTOR Ancillary Procedure Department of Ophthalmology in [place], [place] [address] [place] [address] Alanis Barker O.D. [address] [phone] (Work) 06/21/2023 9:00 AM PROPERTY INSPECTOR Comprehensive Visit Department of Ophthalmology in [place], [place] [address] [place] [address] Brigid Hernandez M.D. [address] [place] [phone] 07/17/2023 12:30 PM PROPERTY INSPECTOR Infusion Department of Infusion Therapy in [place], [place] [address] [phone] Kamryn Alvarado, WEDGER MACHINE, C.N.P. [address] [phone] 09/04/2023 7:00 AM CDT Appointment Department of Laboratory Medicine in [place], [place] [address] [phone] Wellington Valdivia M.D. [address] [phone] Scheduled Referrals Name Type Priority Associated Diagnoses Orde r Schedule Primary Care nurse visit (clinic) - [facility] Region; Medicare Annual Wellness Outpatient Referral Routine Expected: 06/25/2023, Expires: 11/24/2023 documented as of this encounter Visit Diagnoses Not on filedocumented in this encounter Additional Health Concerns Assessment Noted Time PHQ-9 Depression Total Score: 0 04/09/20 9:36 AM PROPERTY INSPECTOR documented as of this encounter Care Teams Helminthology Teacher Relationship Specialty Start Date End Date Cooper Jolly M.B.B.S. MHanna. [address] [place] [phone] PCP - General Internal Medicine 02/05/22 documented as of this encounter
--- OUTSIDE RECORDS SUMMARY | 2023-06-19 09:27 | XMS_ITS | Encounter Summary ---
Author Name Unknown Organization [facility] Address [address] [place] [address] Care Team Providers Care Senior Mechanical Engineer Name Role Phone Cooper Jolly M.D. Primary Care Provid er Reason for Visit * Reason Comments Itchy Eye Encounter Details Date Type Department Care Team (Latest Contact Info) Description 06/13/2023 10:10 AM APPLIQUE SEWER Office Visit Department of Ophthalmology in [place], [place] [address] [place] [address] Alanis Barker O.D. [address] [place] [phone] (Work) Conjunctivitis Acute Left (Primary Dx); Epiphora Left; Dry Eye Syndrome Bilateral Discharge Disposition: Home or Self Care Social History Tobacco Use Types Packs/Day Years [...] How often do you attend chur or mosque services? More than 4 times per year 04/09/2022 Do you belong to any clubs o r organizations such as yazidi groups, unions, fraternal or athletic groups, or [...] Answer Date Recorded PHQ-2 Score 0 04/24/2023 [facility] of Occupat ional Health - Occupational Stress [...] Sex Assigned at Male 04/29/2021 7:37 PM APPLIQUE SEWER Gender Identity Male 10/01/2020 9:14 PM CDT Sexual Orientation Straight 10/01/2020 9: 14 PM CDT documented as of this encounter Progress Notes * Alanis Barker O.D. - 06/13/2023 10:10 AM CST IMPRESSION / REPORT / PLAN #1 mild conjunctivitis LE #2 epiphora LE - ongoing Discussed possible NLDO and slightly stenosed puncta may contribute to sx. Recommended warm compresses and New Medications Ordered This Visit Medications ofloxacin (OCUFLOX) 0.3 % ophthalmic solution Sig: Administer 1 drop into the left eye 4 (four) times a day for 7 days. Dispense: 10 mL Refill: 0 Discontinue pataday for now. Continue art tears PRN Pt has had relief with above treatment previously. Being seen by oculoplastics next week. If sx worsen, RTC BREN, otherwise, keep appt next week for possible nasolacrimal duct irrigation and evaluation. #3 floppy eyelid syndrome? Pt does know of sleep apnea; no CPAP; sleeps on L side. Evaluate at [facility] next week. IQUE SEWER documented in this encounter Plan of Treatment Upcoming Encounters Date Type Department Care Team (Late st Contact Info) Description 06/21/2023 8:30 AM APPLIQUE SEWER Ancillary Procedure Department of Ophthalmology in [place], [place] [address] [place] [address] Alanis Barker O.D. [address] [phone] (Work) 06/21/2023 9:00 AM APPLIQUE SEWER Comprehensive Visit Department of Ophthalmology in [place], [place] [address] [place] [address] Brigid Hernandez M.D. [address] [place] [address] 07/17/2023 12:30 PM APPLIQUE SEWER Infusion Department of Infusion Therapy in [place], [place] [address] [phone] Kamryn Alvarado, KIMANI, C.N.P. [address] [phone] 09/04/2023 7:00 AM CDT Appointment Department of Laboratory Medicine in [place], [place] [address] [phone] Wellington Valdivia M.D. [address] [phone] documented as of this encounter Visit Diagnoses Diagnosis Conjunctivitis Acute Left- Primary Epiphora Left Dry Eye Syndrome Bilateral documented in this encounter Additional Health Concerns Assessment Noted Time PHQ-9 Depression Total Score: 0 04/09/20 22 9:36 AM APPLIQUE SEWER documented as of this encounter Care Teams Senior Mechanical Engineer Relationship Specialty Start Date End Date Cooper Jolly M.B.B.S., M.D. [address] [phone] PCP - General Internal Medicine 02/05/22 documented as of this encounter
--- OUTSIDE RECORDS SUMMARY | 2023-06-19 09:28 | XMS_ITS | Encounter Summary ---
Author Name Unknown Organization [facility] Address [address] [place] [address] Care Team Providers Care Senior Benefits Specialist Name Role Phone Cooper Jolly M.D. 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 [address] [phone] [address] [address] [facility] [address] [phone] Referral ID Status Reason Start Date Expiration Date V isits Requested Visits Authorized [id number] Authorized 03/22/2023 09/17/2023 4 4 Encounter Details Date Type Department Care Team (Late st Contact Info) Description 04/16/2023 1:30 PM AIR BATTLE MANAGER Infusion Department of Infusion Therapy in [place], [place] [address] [phone] Kamryn Alvarado APRN, C.N.P. [address] [phone] COVID-19 Infection (Primary Dx); Hyperlipidemia Mixed; Atherosclerotic Heart Disease Of [place] Coronary Artery Without Angina Pectoris Social History Tobacco Use Types Packs/Day Years [...] How often do you attend chur or amish services? More than 4 times per year 04/09/2022 Do you belong to any clubs o r organizations such as druze groups, unions, fraternal or athletic groups, or [...] PHQ-2 Answer Date Recorded PHQ-2 Score 0 04/09/2022 [facility] - Occupational Stress Questionnaire Answer [...] your living situation today? I have a [facility] place to live 02/03/2023 Education Answer Date Recorded What is the highest level of school you have completed or the highest degree you have received? Associate degree: occupational, technical, or vocational program 11/30/2020 Sex and Gender Information Value Date Recorded Sex Assigned at Male 04/29/2021 7:37 PM AIR BATTLE MANAGER Gender Identity Male 10/01/2020 9:14 PM CDT Sexual Orientation Straight 10/01/2020 9: 14 PM CDT documented as of this encounter Last Filed Vital Signs Vital Sign Reading Time Taken Comments Blood Pressure 120/64 04/16/2023 2:00 PM AIR BATTLE MANAGER Pulse 62 04/16/2023 2:00 PM AIR BATTLE MANAGER Temperature 36.2 ??C (97.2 ??F) 04/16/2023 2:00 PM CS T Respiratory Rate 18 04/16/2023 2:00 PM AIR BATTLE MANAGER Oxygen Saturation 100% 04/16/2023 2:00 PM AIR BATTLE MANAGER Inhaled Oxygen Concentration - - Weight - - Height - - Body Mass Index - - documented in this encounter Plan of Treatment Upcoming Encounters Date Type Department Care Team (Late st Contact Info) Description 06/21/2023 8:30 AM AIR BATTLE MANAGER Ancillary Procedure Department of Ophthalmology in [place], [place] [address] [place] [address] Alanis Barker O.D. [address] [phone] (Work) 06/21/2023 9:00 AM AIR BATTLE MANAGER Comprehensive Visit Department of Ophthalmology in [place], [place] [address] [place] [address] Brigid Hernandez M.D. [address] [place] [address] 07/17/2023 12:30 PM AIR BATTLE MANAGER Infusion Department of Infusion Therapy in [place], [place] [address] [phone] Kamryn Alvarado APRN, C.N.P. [address] [phone] 09/04/2023 7:00 AM CDT Appointment Department of Laboratory Medicine in [place], [place] [address] [phone] Wellington Valdivia M.D. 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 documented in this encounter Administered Medications Inactive Administered Medications - up to 3 most recent administrations Medication Order MAR Action Action Date Dose Rate Site inclisiran injection 284 mg (LEQVIO) 284 mg, subcutaneous, Once, On Sat04/16/23 at 1330, For 1 dose, Restriction Criteria (Pharmacy will review and approve if criteria met): Use by Cardiology Given 04/16/2023 1:59 PM AIR BATTLE MANAGER 284 mg Left Upper Arm (Back) documented in this encounter Additional Health Concerns Assessment Noted Time PHQ-9 Depression Total Score: 0 04/09/20 9:36 AM AIR BATTLE MANAGER documented as of this encounter Care Teams Senior Benefits Specialist Relationship Specialty Start Date End Date Cooper Jolly M.B.B.S., M.D. [address] [phone] PCP - General Internal Medicine 02/05/22 documented as of this encounter
--- OUTSIDE RECORDS SUMMARY | 2023-06-19 09:28 | XMS_ITS | Encounter Summary ---
Author Name Unknown Organization [facility] Address [address] [place] [address] Care Team Providers Care Track Walker Name Role Phone Cooper Jolly M.D. Primary Care Provid er Encounter Details Date Type Department Care Team (Late st Contact Info) Description 04/08/2023 Clinical Communication Department of Orthopedic Surgery in [place], [place] [address] [place] [phone] Gregg Ferguson D.P.M. [address] [place] [phone] Social History Tobacco Use Types Packs/Day Years [...] How often do you attend chur or holiness services? More than 4 times per year 04/09/2022 Do you belong to any clubs o r organizations such as congregation groups, unions, fraternal or athletic groups, or [...] Answer Date Recorded PHQ-2 Score 0 04/09/2022 [facility] of Occupat ional Health - Occupational Stress [...] your living situation today? I have a [facility] place to live 02/03/2023 Education Answer Date Recorded What is the highest level of school you have completed or the highest degree you have received? Associate degree: occupational, technical, or vocational program 11/30/2020 Sex and Gender Information Value Date Recorded Sex Assigned at Male 04/29/2021 7:37 PM LADIES' LOCKER ROOM ATTENDANT Gender Identity Male 10/01/2020 9:14 PM CDT Sexual Orientation Straight 10/01/2020 9: 14 PM CDT documented as of this encounter Plan of Treatment Upcoming Encounters Date Type Department Care Team (Late st Contact Info) Description 06/21/2023 8:30 AM LADIES' LOCKER ROOM ATTENDANT Ancillary Procedure Department of Ophthalmology in [place], [place] [address] [place] [address] Alanis Barker O.D. [address] [phone] (Work) 06/21/2023 9:00 AM LADIES' LOCKER ROOM ATTENDANT Comprehensive Visit Department of Ophthalmology in [place], [place] [address] [place] [address] Brigid Hernandez M.D. [address] [place] [phone] 07/17/2023 12:30 PM LADIES' LOCKER ROOM ATTENDANT Infusion Department of Infusion Therapy in [place], [place] [address] [phone] Kamryn Alvarado, NUCLEAR WEAPONS MECHANICAL SPECIALIST, C.N.P. [address] [phone] 09/04/2023 7:00 AM CDT Appointment Department of Laboratory Medicine in [place], [place] [address] [phone] Wellington Valdivia M.D. [address] [phone] documented as of this encounter Visit Diagnoses Not on filedocumented in this encounter Additional Health Concerns Infection Onset Date Last Indicated Resolved Time COVID19 03/25/2023 03/25/2023 04/14/2023 5:47 AM LADIES' LOCKER ROOM ATTENDANT Assessment Noted Time PHQ-9 Depression Total Score: 0 04/09/20 9:36 AM LADIES' LOCKER ROOM ATTENDANT documented as of this encounter Care Teams Track Walker Relationship Specialty Start Date End Date Cooper Jolly M.B.BDionnaS., M.Elidia. [address] [place] [phone] PCP - General Internal Medicine 02/05/22 documented as of this encounter
--- OUTSIDE RECORDS SUMMARY | 2023-06-19 09:28 | XMS_ITS | Encounter Summary ---
Author Name Unknown Organization [facility] Address [address] [place] [address] Care Team Providers Care Vp Strategic Partnerships Name Role Phone Cooper Jolly M.D. Primary Care Provid er Encounter Details Date Type Department Care Team (Latest Contact Info) Description 05/06/2023 9:14 AM OIL EXPELLER - 05/06/2023 11:59 PM [facility] Encounter Department of Laboratory Medicine in [place], [place] [address] [place] [phone] Wellington Valdivia M.D. [address] [place] [phone] Coronary Artery 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 Pectoris; Hyperlipidemia Mixed; Elevated Lipoprotein A; Anemia Iron Deficiency Discharge Disposition: Home or Self Care Social [...] How often do you attend chur or gnosticist services? More than 4 times per year 04/09/2022 Do you belong to any clubs o r organizations such as hinduism groups, unions, fraternal or athletic groups, or [...] Answer Date Recorded PHQ-2 Score 0 04/24/2023 [facility] of Occupat ional Health - Occupational Stress [...] your living situation today? I have a [facility] place to live 02/03/2023 Education Answer Date Recorded What is the highest level of school you have completed or the highest degree you have received? Associate degree: occupational, technical, or vocational program 11/30/2020 Sex and Gender Information Value Date Recorded Sex Assigned at Male 04/29/2021 7:37 PM OIL EXPELLER Gender Identity Male 10/01/2020 9:14 PM CDT Sexual Orientation Straight 10/01/2020 9: 14 PM CDT documented as of this encounter Medications at Time of Discharge Medication Sig Dispensed Refills Start Date End Date acetaminophen (TYLENOL) 500 mg capsule Take 1,000 mg by mouth 2 (two) times a day. 0 amoxicillin (AMOXIL) 500 mg capsule TAKE FOUR CAPSULES BY MOUTH 30-60 MINUTES BEFORE APPOINTMENT 12 capsule 0 04/24/2023 artificial tears with lanolin (REFRESH P.M.) ophthalmic ointment Apply 0.5 inches to left eye at bedtime. 3 g 11 07/27/2022 07/27/[address] tablet Take 81 mg by mouth daily. 0 ezetimibe (ZETIA) 10 mg tabletIndications:Cor onary Artery 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 Pectoris,Hyperlipidem ia Mixed Take 1 tablet (10 mg total) by mouth daily. 90 tablet 3 04/24/2023 04/23/2024 furosemide (LASIX) 40 mg tablet Take 40 mg by mouth daily as needed. 0 metoprolol tartrate (LOPRESSOR) 25 mg tablet Take 1 tablet (25 mg total) by mouth 2 (two) times a day. 180 tablet 3 04/24/2023 olopatadine (PATADAY) 0.2 % ophthalmic solution 1 drop at bedtime. 0 omeprazole (PriLOSEC) [address] capsule Take 1 capsule (20 mg total) by mouth daily. 90 capsule 3 04/24/2023 rosuvastatin (CRESTOR) 40 mg tablet Take 1 tablet (40 mg total) by mouth daily. 90 tablet 3 04/24/2023 04/23/2024 triamcinolone (for_KENALOG) 0.1 % cream Apply 1 application topically as needed (bug bites). 0 05/02/2016 documented as of this encounter Plan of Treatment Upcoming Encounters Date Type Department Care Team (Late st Contact Info) Description 06/21/2023 8:30 AM OIL EXPELLER Ancillary Procedure Department of Ophthalmology in [place], [place] [address] [place] [address] Alanis Barker O.D. [address] [place] [phone] (Work) 06/21/2023 9:00 AM OIL EXPELLER Comprehensive Visit Department of Ophthalmology in [place], [place] [address] [place] [address] Brigid Hernandez M.D. [address] [place] [address] 07/17/2023 12:30 PM OIL EXPELLER Infusion Department of Infusion Therapy in [place], [place] [address] [place] [phone] Kamryn Alvarado, KIMANI, C.N.P. [address] [place] [phone] 09/04/2023 7:00 AM CDT Appointment Department of Laboratory Medicine in [place], [place] [address] [phone] Wellington Valdivia M.D. [address] [place] [phone] documented as of this encounter Procedures Procedure Name Priority Date/Time Associated Diagnosis Comments LIPID PANEL, S Routine 05/06/2023 9:22 AM OIL EXPELLER Coronary Artery 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 Pectoris Hyperlipidemia Mixed Elevated Lipoprotein A BASIC METABOLIC PANEL, S/P Routine 05/06/2023 9:22 AM OIL EXPELLER Coronary Artery 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 Pectoris THYROID FUNCTION CASCADE, S Routine 05/06/2023 9:21 AM OIL EXPELLER Hyperlipidemia Mixed APOLIPOPROTEIN B, P Routine 05/06/2023 9 :21 AM OIL EXPELLER Coronary Artery 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 Pectoris Hyperlipidemia Mixed Elevated Lipoprotein A CBC WITHOUT DIFFERENTIAL, B Routine 05/06/2023 9:21 AM OIL EXPELLER Anemia Iron Deficiency LACTATE DEHYDROGENASE (LD), S Routine 05/06/2023 9:21 AM OIL EXPELLER Anemia Iron Deficiency HAPTOGLOBIN, S Routine 05/06/2023 9:21 AM OIL EXPELLER Anemia Iron Deficiency FOLATE, S Routine 05/06/2023 9:21 AM OIL EXPELLER Anemia Iron Deficiency FERRITIN, S Routine 05/06/2023 9:21 AM OIL EXPELLER Anemia Iron Deficiency VITAMIN B12 ASSAY, S Routine 05/06/2023 9:21 AM OIL EXPELLER Anemia Iron Deficiency documented in this encounter Results * (ABNORMAL) Basic Metabolic Panel (05/06/2023 9:22 AM OIL EXPELLER) Potassium, P 5.3(H) 3.6 - 5.2 mmol/L 05/06/2023 9:53 AM OIL EXPELLER AUST Sodium, P 141 135 - 145 mmol/L 05/06/2023 9:53 AM OIL EXPELLER AUST Chloride, P 105 98 - 107 mmol/L 05/06/2023 9:53 AM OIL EXPELLER AUST Bicarbonate, P 29 22 - 29 mmol/L 05/06/2023 9:53 AM OIL EXPELLER AUST Anion Gap, P 7 7 - 15 05/06/2023 9:53 AM OIL EXPELLER AUST BUN (Blood Urea Nitrogen), P 17 8 - 24 mg/dL 05/06/2023 9:53 AM OIL EXPELLER AUST Creatinine 1.14 0.74 - 1.35 mg/dL 05/06/2023 9:53 AM OIL EXPELLER AUST Estimated GFR (eGFR) 67 >=60 mL/min/BSA 05/06/2023 9:53 AM OIL EXPELLER AUST Comment: Estimated GFR calculated using the 2020 CKD_EPI creatinine equation. Calcium, Total, P 9.4 8.8 - 10.2 mg/dL 05/06/2023 9:53 AM OIL EXPELLER AUST Glucose, P 110 70 - 140 mg/dL 05/06/2023 9:53 AM OIL EXPELLER AUST Blood (Blood, Venous) 05/06/2023 9:22 AM OIL EXPELLER 05/06/2023 9:24 AM OIL EXPELLER Wellington Valdivia M.D. LAB BLOOD ADD-ON [facility] [address] [place] [address], [facility] - [facility] [address] [place] [address] * Lipid Panel (05/06/2023 9:22 AM OIL EXPELLER) Triglycerides 114 mg/dL 05/06/2023 9:53 AM OIL EXPELLER AUST Comment: ----REFERENCE VALUE---- Normal: <150 mg/dL Borderline High: 150-199 mg/dL High: 200-499 mg/dL Very High: > or =500 mg/dL Cholesterol, Total 113 mg/dL 2022 9:53 AM OIL EXPELLER AUST Comment: ----REFERENCE VALUE---- Desirable: < 200 mg/dL Borderline High: 200 - 239 mg/dL High: > or = 240 mg/dL Cholesterol, LDL, Calculated 39 mg/dL 05/06/2023 9:53 AM OIL EXPELLER AUST Comment: ----REFERENCE VALUE---- Desirable: <100 mg/dL Above Desirable: 100-129 mg/dL Borderline High: 130-159 mg/dL High: 160-189 mg/dL Very High: >=190 mg/dL ----ADDITIONAL INFORMATION---- LDL cholesterol calculated using the Stacy/NIH equation. Cholesterol, HDL 53 >=40 mg/dL 05/06/20 9:53 AM OIL EXPELLER AUST Cholesterol, Non-HDL, Calculated 60 mg/dL 05/06/2023 9:53 AM OIL EXPELLER AUST Comment: ----REFERENCE VALUE---- Desirable: <130 mg/dL Above Desirable: 130-159 mg/dL Borderline High: 160-189 mg/dL High: 190-219 mg/dL Very High: > or =220 mg/dL Fasting (8 HR or more) y 05/06/2023 9:24 AM OIL EXPELLER AUST Blood (Blood, Venous) 05/06/2023 9:22 AM OIL EXPELLER 05/06/2023 9:24 AM OIL EXPELLER Wellington Valdivia M.D. LAB BLOOD ADD-ON [facility] [address] [place] [address], [place] [facility] - [facility] [address] [place] [address] * Thyroid Function [place] (05/06/2023 9:21 AM OIL EXPELLER) TSH, Sensitive 2.6 0.3 - 4.2 mIU/L 05/06/2023 10:47 AM OIL EXPELLER AUST Blood (Blood, Venous) 05/06/2023 9:21 AM OIL EXPELLER 05/06/2023 9:24 AM OIL EXPELLER Wellington Valdivia M.D. LAB BLOOD ADD-ON Performing Organization Address City/[facility]/ZIP Co de Phone Number [facility] [address] [place] [address], [facility] - [facility] [address] [place] [address] * (ABNORMAL) LD (Lactate Dehydrogenase) (05/06/2023 9:21 AM OIL EXPELLER) Lactate Dehydrogenase (LD), P 250(H) 122 - 222 U/L 05/06/2023 9:50 AM OIL EXPELLER AUST Blood (Blood, Venous) 05/06/2023 9:21 AM OIL EXPELLER 05/06/2023 9:24 AM OIL EXPELLER Wellington Valdivia M.D. LAB BLOOD NON ADD -ON Performing Organization Address [facility] Co de Phone Number [facility] [address] [place] [address], [facility] - [facility] [address] [place] [address] * Haptoglobin (05/06/2023 9:21 AM OIL EXPELLER) Haptoglobin, S 143 30 - 200 mg/dL 05/06/2023 2:43 PM OIL EXPELLER MKTO Blood (Blood, Venous) 05/06/2023 9:21 AM OIL EXPELLER 05/06/2023 2:13 PM OIL EXPELLER Wellington Valdivia M.D. LAB BLOOD ADD-ON Performing Organization Address City/[facility]/ZIP Co de Phone Number [facility] [address] [place] [address], [facility] [place] [address] [place] [address] * Folate (05/06/2023 9:21 AM OIL EXPELLER) Folate, S 12.1 >=4.0 mcg/L 05/06/2023 10:47 AM OIL EXPELLER AUST Comment: Biotin has been identified by the anesthesiology physician as a potential interfering substance. Higher concentrations of biotin may be found in multivitamins, hair/nail supplements, and workout supplements. If the result does not match clinical observations, repeat testing after patient refrains from the use of supplements for at least 12 hours. Blood (Blood, Venous) 05/06/2023 9:21 AM OIL EXPELLER 05/06/2023 9:24 AM OIL EXPELLER Wellington Valdivia M.D. LAB BLOOD ADD-ON Performing Organization Address [facility] Co de Phone Number [facility] [address] [place] [address], [facility] - [address] [address] * Vitamin B12 Assay (05/06/2023 9:21 AM OIL EXPELLER) Pathologist [facility] Vitamin B12 Assay, S 432 232 - 1245 ng/L 05/06/2023 10:47 AM OIL EXPELLER AUST Comment: Biotin has been identified by the anesthesiology physician as a potential interfering substance. Higher concentrations of biotin may be found in multivitamins, hair/nail supplements, and workout supplements. If the result does not match clinical observations, repeat testing after patient refrains from the use of supplements for at least 12 hours. Blood (Blood, Venous) 05/06/2023 9:21 AM OIL EXPELLER 05/06/2023 9:24 AM OIL EXPELLER Wellington Valdivia M.D. LAB BLOOD ADD-ON Performing Organization Address [facility] Co de Phone Number [facility] [address] [place] [address], [facility] - [address] [address] * Ferritin (05/06/2023 9:21 AM OIL EXPELLER) Ferritin, S 36 31 - 409 mcg/L 05/06/2023 10:47 AM OIL EXPELLER AUST Comment: Biotin has been identified by the anesthesiology physician as a potential interfering substance. Higher concentrations of biotin may be found in multivitamins, hair/nail supplements, and workout supplements. If the result does not match clinical observations, repeat testing after patient refrains from the use of supplements for at least 12 hours. Blood (Blood, Venous) 05/06/2023 9:21 AM OIL EXPELLER 05/06/2023 9:24 AM OIL EXPELLER Wellington Valdivia M.D. LAB BLOOD ADD-ON Performing Organization Address [facility] Co de Phone Number [facility] [address] [place] [address], [facility] [place] [address] * CBC without Differential (05/06/2023 9:21 AM OIL EXPELLER) Hemoglobin 13.2 13.2 - 16.6 g/dL 05/06/2023 9:29 AM OIL EXPELLER AUST Hematocrit 41.7 38.3 - 48.6 % 05/06/2023 9:29 AM OIL EXPELLER AUST Erythrocytes 4.40 4.35 - 5.65 x10(12)/L 05/06/2023 9:29 AM OIL EXPELLER AUST MCV 94.8 78.2 - 97.9 fL 05/06/2023 9:29 AM OIL EXPELLER A[facility] RBC Distrib Width 12.2 11.8 - 14.5 % 05/06/2023 9:29 AM OIL EXPELLER AUST Platelet Count 158 135 - 317 x10(9)/L 05/06/2023 9:29 AM OIL EXPELLER AUST Leukocytes 5.4 3.4 - 9.6 x10(9)/L 05/06/2023 9:29 AM OIL EXPELLER AUST Blood (Blood, Venous) 05/06/2023 9:21 AM OIL EXPELLER 05/06/2023 9:24 AM OIL EXPELLER Wellington Valdivia M.D. LAB BLOOD ADD-ON Performing Organization Address [facility]/ZIP Co de Phone Number [facility] [address] [place] [address], [facility] [address] [place] [address] * Apolipoprotein B (05/06/2023 9:21 AM OIL EXPELLER) Apolipoprotein B, S 60 mg/dL 05/07 12:25 PM OIL EXPELLER DTL Comment: ----REFERENCE VALUE---- Desirable: <90 Above Desirable: 90-99 Borderline high: 100-119 High: 120-139 Very high: > or = 140 Blood (Blood, Venous) 05/06/2023 9:21 AM OIL EXPELLER 05/07/2023 7:49 AM OIL EXPELLER Wellington Valdivia M.D. LAB BLOOD NON ADD -ON [facility] [address] [place] [address], [facility] [address] [place] [address] documented in this encounter Visit Diagnoses Diagnosis Coronary Artery 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 Pectoris Hyperlipidemia Mixed Elevated Lipoprotein A Anemia Iron Deficiency documented in this encounter Additional Health Concerns Assessment Noted Time PHQ-9 Depression Total Score: 0 04/09/20 9:36 AM OIL EXPELLER documented as of this encounter Care Teams Vp Strategic Partnerships Relationship Specialty Start Date End Date Cooper Jolly M.B.B.S., Berna. [address] [phone] PCP - General Internal Medicine 02/05/22 documented as of this encounter
--- OUTSIDE RECORDS SUMMARY | 2023-06-19 09:28 | XMS_ITS | Encounter Summary ---
Author Name Unknown Organization [facility] Address [address] [place] [address] Care Team Providers Care Risk Management Internship Name Role Phone Cooper Jolly M.D. Primary Care Provid er Reason for Referral * Outpatient (Routine) - Authorized Specialty Diagnoses / Procedures Referred By Swetha malagon Referred To Contact [facility] Internal Medicine Cooper Jolly M.B.B.S., M.D. [address] [place] [address] [facility] Referral ID Status Reason Start Date Expiration Date V isits Requested Visits Authorized [id number] Authorized 04/30/2023 04/29/2026 1 1 Scheduling Instructions Chronic diseases follow-up OGRAPHY TECH Reason for Visit * Reason Comments chronic disease management * Outpatient (Routine) - Closed Specialty Diagnoses / Procedures Referred By Swetha malagon Referred To Contact [facility] Internal Medicine Cooper Jolly M.B.B.S., M.D. [address] [phone] [facility] Region Referral ID Status Reason Start Date Expiration Date Visits Re quested Visits Authorized [id number] Closed 04/10/2022 04/09/2025 1 1 Encounter Details Date Type Department Care Team (Latest Contact Info) Description 04/24/2023 10:00 AM MAMMOGRAPHY TECH Comprehensive Visit Department of Internal Medicine in [place], [place] [address] [phone] Cooper Jolly M.B.B.S., Ian [address] [phone] Coronary Artery 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 Pectoris (Primary Dx); Bypass Coronary Artery Graft Status Post; Hyperlipidemia Mixed; Replacement Aortic Valve Tissue; Loss Hearing Bilateral; Tinnitus Bilateral; Post COVID-19 Condition; Hernia Ventral; Apnea Sleep Obstructive; Swelling Leg; Gastroesophageal Reflux Disease Without Esophagitis Discharge Disposition: Home or Self Care Social [...] week 04/09/2022 How often do you attend [employer] [facility] or adventist services? More than 4 times per year 04/09/2022 Do you belong to any clubs o r organizations such as quaker groups, unions, fraternal or athletic groups, or [...] Answer Date Recorded PHQ-2 Score 0 04/[facility]/2023 [facility] - Occupational Stress Questionnaire Answer Date Recorded [...] your living situation today? I have a [facility] place to live 02/03/2023 Education Answer Date Recorded What is the highest level of school you have completed or the highest degree you have received? Associate degree: occupational, technical, or vocational program 11/30/2020 Sex and Gender Information Value Date Recorded Sex Assigned at Male 04/29/2021 7:37 PM MAMMOGRAPHY TECH Gender Identity Male 10/01/2020 9:14 PM CDT Sexual Orientation Straight 10/01/2020 9: 14 PM CDT documented as of this encounter Last Filed Vital Signs Vital Sign Reading Time Taken Comments Blood Pressure 104/73 04/24/2023 9:48 AM MAMMOGRAPHY TECH Pulse 65 04/24/2023 9:48 AM MAMMOGRAPHY TECH Temperature 35.8 ??C (96.4 ??F) 04/24/2023 9:48 AM CS T Respiratory Rate 18 04/24/2023 9:48 AM MAMMOGRAPHY TECH Oxygen Saturation 99% 04/24/2023 9:48 AM MAMMOGRAPHY TECH ra Inhaled Oxygen Concentration - - Weight 124 kg (273 lb 5.9 oz) 04/24/2023 9:48 AM MAMMOGRAPHY TECH Height 182.7 cm (5' 11.93) 04/24/2023 9:[address] Body Mass Index 37.15 04/24/2023 9:48 AM MAMMOGRAPHY TECH documented in this encounter Progress Notes * Cooper Jolly M.B.B.S., MHanna. - 04/24/2023 10:00 AM CST SUBJECTIVE CHIEF COMPLAINT / REASON FOR VISIT Chronic diseases follow-up HISTORY OF PRESENT ILLNESS Damien Aguirre is a 73 y.o. patient with Past Medical and Surgical History ([facility]) as below who presented to this clinic for chronic diseases follow-up He has a history of coronary artery bypass graft and aortic valve replacement 12/2020 followed by incisional ventral hernia Both patient and had covid and got remdesivir injection earlier this month. OBJECTIVE VITAL SIGNS BP 104/73 (BP Location: Left arm, Patient Position: Sitting, Cuff Size: Large) Pulse 65 Temp (!) 35.8 ??C (Temporal) Resp 18 Ht 182.7 cm Wt 124 kg SpO2 99% Comment: ra BMI 37.15 kg/m?? PHYSICAL EXAMINATION Awake and alert and oriented Head and Neck: Atraumatic, no thyromegaly or neck swelling Chest: b/l equal air entry, normal S1 and S2 Abdomen: ventral hernia, soft,non distended, non tender B/l lower extremities: no peripheral edema but bulky legs Neuro: no facial asymmetry, normal voice, moving all extremities equally ASSESSMENT / PLAN Damien Aguirre is a 73 y.o. 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 Covid 02/2023 s/p remdesivir #8 Hernia Ventral Overview: / consequence of open heart surgery - CT 01/2022 noted - advised to avoid heavy lifting - patient to come to emergency in case of severe abdominal pain, nausea or vomiting #9 Apnea Sleep Obstructive Overview: Mild obstructive sleep apnea syndrome - not on CPAP #10 Swelling Leg Overview: Uses lasix as needed #11 Gastroesophageal Reflux Disease Without Esophagitis Overview: Continue Prilosec He uses tums recently Other orders - [facility]clinic) - rosuvastatin (CRESTOR) 40 mg tablet; Take 1 tablet (40 mg total) by mouth daily., Starting Sat04/24/2023, Until Neha 04/23/2024, Normal - omeprazole (PriLOSEC) [address] capsule; Take 1 capsule (20 mg total) by mouth daily., Starting Sat04/24/2023, Normal - amoxicillin (AMOXIL) 500 mg capsule; TAKE FOUR CAPSULES BY MOUTH 30-60 MINUTES BEFORE APPOINTMENT, Normal - ezetimibe (ZETIA) 10 mg tablet; Take 1 tablet (10 mg total) by mouth daily., Starting Sat04/24/2023, Until Neha 04/23/2024, Normal - metoprolol tartrate (LOPRESSOR) 25 mg tablet; Take 1 tablet (25 mg total) by mouth 2 (two) times a day., Starting Sat04/24/2023, Normal - [facility] office visit (clinic); Future; Expected date: 04/30/2024 CBC and BMP stable 07/2022 Colonoscopy 05/2022 with one polyp. Due to poor prep repeat advised in 3 years Patient will follow up with cardiology team 05/09/2023 with comprehensive blood tests. Follow up in a year or as needed. Total time spent: 32 minutes ( Time includes clinical interview, chart review, treatment planning and documentation) Cooper Jolly MD [facility] Internal Medicine OGRAPHY TECH documented in this encounter Plan of Treatment Upcoming Encounters Date Type Department Care Team (Late st Contact Info) Description 06/21/2023 8:30 AM MAMMOGRAPHY TECH Ancillary Procedure Department of Ophthalmology in [place], [place] [address] [place] [phone] Alanis Barker O.D. [address] [place] [phone] (Work) 06/21/2023 9:00 AM MAMMOGRAPHY TECH Comprehensive Visit Department of Ophthalmology in [place], [place] [address] [place] [phone] Brigid Hernandez M.D. [address] [place] [phone] 07/17/2023 12:30 PM MAMMOGRAPHY TECH Infusion Department of Infusion Therapy in [place], [place] [address] [phone] Kamryn Alvarado, KIMANI, C.N.P. [address] [phone] 09/04/2023 7:00 AM CDT Appointment Department of Laboratory Medicine in [place], [place] [address] [phone] Wellington Valdivia M.D. [address] [phone] Scheduled Referrals Name Type Priority Associated Diagnoses Orde r Schedule [facility] office visit (clinic) Outpatient Referral Routine Expected: 04/30/2024 (Approximate), Expires: 07/29/2024 documented as of this encounter Visit Diagnoses Diagnosis Coronary Artery 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 Pectoris- Primary Bypass Coronary Artery Graft Status Post Hyperlipidemia Mixed Replacement Aortic Valve Tissue Loss Hearing Bilateral Tinnitus Bilateral Post COVID-19 Condition Hernia Ventral Apnea Sleep Obstructive Swelling Leg Gastroesophageal Reflux Disease Without Esophagitis documented in this encounter Additional Health Concerns Assessment Noted Time PHQ-9 Depression Total Score: 0 04/09/20 22 9:36 AM MAMMOGRAPHY TECH documented as of this encounter Care Teams Risk Management Internship Relationship Specialty Start Date End Date Cooper Jolly M.B.B.S., MHanna. [address] [phone] PCP - General Internal Medicine 02/05/22 documented as of this encounter
--- OUTSIDE RECORDS SUMMARY | 2023-06-19 09:28 | XMS_ITS | Encounter Summary ---
Author Name Unknown Organization [facility] Address [address] [place] [address] Care Team Providers Care Business Insurance Agent Name Role Phone Cooper Jolly M.D. Primary Care Provid er Reason for Referral * Outpatient (Routine) - Incomplete Specialty Diagnoses / Procedures Referred By Contac t Referred To Contact Diagnoses Cerumen Impacted Bilateral Procedures Ear cerumen removal Palak Mike MPAS, P.A.-CDionna [address] [place] [address] Referral ID Status Reason Start Date Expiration Date V isits Requested Visits Authorized [id number] Incomplete 04/11/2023 04/10/2024 1 1 L SHARPENER OPERATOR Reason for Visit * Appointment Request (Routine) - Closed Specialty Diagnoses / Procedures Referred By Contcaron t Referred To Contact Express or Urgent Care Referral ID Status Reason Start Date Expiration Date Visits Re quested Visits Authorized [id number] Closed 04/10/2023 04/09/2024 1 1 Encounter Details Date Type Department Care Team (Late st Contact Info) Description 04/11/2023 3:40 PM DRILL SHARPENER OPERATOR Office Visit [facility] at [facility] in [place], [place] [address] [place] [phone] Palak Mike MPAS, P.A.-C. [address] [place] [address] Leticia Acuña Bilateral (Primary Dx) Social History Tobacco Use Types [...] week 04/09/2022 How often do you attend [facility] or shinto services? More than 4 times per year 04/09/2022 Do you belong to any clubs o r organizations such as bahai groups, unions, fraternal or athletic groups, or [...] Date Recorded PHQ-2 Score 0 04/09/2022 [facility] of Occupat ional Health - Occupational Stress [...] living situation today? I have a [facility] [place] place to live 02/03/2023 Education Answer Date Recorded What is the highest level of school you have completed or the highest degree you have received? Associate degree: occupational, technical, or vocational program 11/30/2020 Sex and Gender Information Value Date Recorded Sex Assigned at Male 04/29/2021 7:37 PM DRILL SHARPENER OPERATOR Gender Identity Male 10/01/2020 9:14 PM CDT Sexual Orientation Straight 10/01/2020 9: 14 PM CDT documented as of this encounter Progress Notes * Palak Mike MPAS, PDionnaA.-Nay. - 04/11/2023 3:40 PM CST SUBJECTIVE CHIEF COMPLAINT / REASON FOR VISIT Damien Aguirre is a 73 y.o. male who presents for evaluation of No chief complaint on file.. HISTORY OF PRESENT ILLNESS Srinivasan presents to the [facility] to have his ears cleaned. Patient states that he has plans to go to the [facility] in [place] in about a week to have his hearing tested. Was advised bythe [place] staff did not come with his ears impacted with wax because if he does then he can not do anytesting. Patient states that he thought he would come in have his ears checked in washed out prior to going up to the [facility] for hearing testing next week. Denies any headaches or lightheadedness. Denies any recent cold or flu-like symptoms. Did recently have COVID but those symptoms have resolved. The following portions of the patient's history were reviewed and updated as appropriate: allergies, current medications, medical history, social history, and problem list. REVIEW OF SYSTEMS Constitutional: - Negative for fatigue and fever. ENT: - Negative for persistent hoarse voice and sinus congestion. Respiratory: - Negative for coughing up mucus (phlegm), dry cough and shortness of breath. Neurological: - Negative for light-headedness and headaches. All other systems reviewed and are negative. OBJECTIVE PHYSICAL EXAM Vitals reviewed. Constitutional General: He is not in acute distress. Appearance: Normal appearance. He is not ill-appearing, toxic-appearing or diaphoretic. Neurological Mental Status: He is alert. Psychiatric Mood and Affect: Mood normal. Behavior: Behavior normal. Nursing staff was able irrigate external canals free of all cerumen. Patient reported no pain or dizziness post procedure. Re-evaluation shows external canals clear and intact without damage or irritation. TMs clear and intact bilaterally. I have reviewed the patient's medical record, including previous encounters, recent lab work, and immunization status. ASSESSMENT / PLAN #1 Cerumen Impacted Bilateral Anticipatory guidance was reviewed. Patient information was reviewed and discussed, including signsand symptoms that would indicate a need for urgent/emergent follow up. Encouraged to follow up at any time if there are questions, concerns, worsening symptoms, or problems. Patient indicates understa nding of our plan and agrees. - Ear cerumen removal L SHARPENER OPERATOR documented in this encounter Procedure Notes * Palak Castanon L.P.N. - 04/11/2023 3:40 PM CSTAssociated Order(s): Ear cerumen removal Post-Procedure Diagnose(s): Cerumen Impacted Bilateral Ear cerumen removal Performed by: Palak Castanon L.PDionnaN. Authorized by: Palak Mike MPAS, P.A.-C. Care team members present 1. Palak Mike MPAS, P.A.-C. 2. Palak Castanon L.P.N. PROCEDURE DETAILS Location: left ear and right ear Procedure type: irrigation Comments: Pt tolerated well CONSENT Consent obtained: verbal Consent [...] Hearing quality: normal Procedure completed successfully: yes Complications: no immediate complications COMMENTS Pt tolerated well L SHARPENER OPERATOR documented in this encounter Plan of Treatment Upcoming Encounters Date Type Department Care Team (Late st Contact Info) Description 06/21/2023 8:30 AM DRILL SHARPENER OPERATOR Ancillary Procedure Department of Ophthalmology in [place], [place] [address] [place] [phone] Alanis Barker O.D. [address] [place] [phone] (Work) 06/21/2023 9:00 AM DRILL SHARPENER OPERATOR Comprehensive Visit Department of Ophthalmology in [place], [place] [address] [place] [phone] Brigid Hernandez M.D. [address] [place] [phone] 07/17/2023 12:30 PM DRILL SHARPENER OPERATOR Infusion Department of Infusion Therapy in [place], [place] [address] [place] [phone] Kamryn Alvarado APRN, C.N.P. [address] [place] [phone] 09/04/2023 7:00 AM CDT Appointment Department of Laboratory Medicine in [place], [place] [address] [place] [phone] Wellington Valdivia M.D. [address] [place] [phone] documented as of this encounter Procedures Procedure Name Priority Date/Time Associated Diagnosis Comments PA RMVL IMPACT CERUMEN IRRIG UNILAT Routine 04/11/2023 3:40 PM DRILL SHARPENER OPERATOR Cerumen Impacted Bilateral documented in this encounter Results * PA RMVL IMPACT CERUMEN IRRIG UNILAT (04/11/2023 3:40 PM DRILL SHARPENER OPERATOR) Narrative MMODAL - 04/11/2023 3:40 PM DRILL SHARPENER OPERATOR Palak Castanon L.PDionnaN. ? 04/11/2023 ??4:11 PM Ear cerumen removal Performed by: Palak Castanon L.P.N. Authorized by: Palak Mike MPAS, P.ADionna-Nay. ?? Care team members present 1. Palak Mike MPAS, P.ADionna-Cydney 2. Palak Castanon L.P.N. PROCEDURE DETAILS Location: [...] immediate complications ?? COMMENTS Pt tolerated well Joanna KumarADionna-Cydney PROCEDURE/MA NOR SURGICAL ORDERABLES MMODAL NA documented in this encounter Visit Diagnoses Diagnosis Cerumen Impacted Bilateral- Primary documented in this encounter Additional Health Concerns Infection Onset Date Last Indicated Resolved Time COVID19 03/25/2023 03/25/2023 04/14/2023 5:47 AM DRILL SHARPENER OPERATOR Assessment Noted Time PHQ-9 Depression Total Score: 0 04/09/20 9:36 AM DRILL SHARPENER OPERATOR documented as of this encounter Care Teams Business Insurance Agent Relationship Specialty Start Date End Date Cooper Jolly M.B.B.S., MHanna. [address] [place] [phone] PCP - General Internal Medicine 02/05/22 documented as of this encounter
--- OUTSIDE RECORDS SUMMARY | 2023-06-19 09:28 | XMS_ITS | Encounter Summary ---
Author Name Unknown Organization [facility] Address [address] [place] [address] Care Team Providers Care Advertising Material Distributor Name Role Phone Cooper Jolly M.D. Primary Care Provid er Reason for Visit * Episode Based Medications (Routine) - Closed Specialty Diagnoses / Procedures Referred By Contac t Referred To Contact Transfusion Medicine / Infusion Therapy Diagnoses COVID-19 Infection Rem #1 Procedures [place] INJECTION, REMDESIVIR, 1 MG INF THER - Remdesivir rFancisca Saenz APRN, C.N.P., D.N.P. [address] [place] [address] [facility] [place] [place] [address] [place] [address] Referral ID Status Reason Start Date Expiration Date Visits Re quested Visits Authorized [id number] Closed 03/26/2023 03/26/2024 3 3 Encounter Details Date Type Department Care Team (Late st Contact Info) Description 03/28/2023 10:15 AM CDT Infusion Department of Infusion Therapy in [place], [place] [address] [place] [address] Francisca Saenz APRN, C.N.P., D.N.P. [address] [place] [address] COVID-19 Infection (Primary Dx) Social History Tobacco Use Types [...] How often do you attend chur or hinduism services? More than 4 times per year 04/09/2022 Do you belong to any clubs o r organizations such as latter day groups, unions, fraternal or athletic groups, or [...] Answer Date Recorded PHQ-2 Score 0 04/09/2022 [facility] of Occupat ional Health [...] living situation today? I have a [facility] [place] place to live 02/03/2023 Education Answer Date Recorded What is the highest level of school you have completed or the highest degree you have received? Associate degree: occupational, technical, or vocational program 11/30/2020 Sex and Gender Information Value Date Recorded Sex Assigned at Male 04/29/2021 7:37 PM HIV COUNSELOR Gender Identity Male 10/01/2020 9:14 PM CDT Sexual Orientation Straight 10/01/2020 9: 14 PM CDT documented as of this encounter Last Filed Vital Signs Vital Sign Reading Time Taken Comments Blood Pressure 101/75 03/28/2023 10:11 AM CDT Pulse 60 03/28/2023 10:11 AM CDT Temperature 36.5 ??C (97.7 ??F) 03/28/2023 10:11 AM C DT Respiratory Rate 12 03/28/2023 10:11 AM CDT Oxygen Saturation 96% 03/28/2023 10:11 AM CDT Inhaled Oxygen Concentration - - Weight - - Height - - Body Mass Index - - documented in this encounter Plan of Treatment Upcoming Encounters Date Type Department Care Team (Late st Contact Info) Description 06/21/2023 8:30 AM HIV COUNSELOR Ancillary Procedure Department of Ophthalmology in [place], [place] [address] [place] [address] Alanis Barker O.D. [address] [place] [phone] (Work) 06/21/2023 9:00 AM HIV COUNSELOR Comprehensive Visit Department of Ophthalmology in [place], [place] [address] [place] [address] Brigid Hernandez M.D. [address] [place] [address] 07/17/2023 12:30 PM HIV COUNSELOR Infusion Department of Infusion Therapy in [place], [place] [address] [phone] Kamryn Alvarado APRN, C.N.P. [address] [place] [phone] 09/04/2023 7:00 AM CDT Appointment Department of Laboratory Medicine in [place], [place] [address] [place], [place] [phone] Wellington Valdivia M.D. [address] [place] [phone] documented as of this encounter Visit Diagnoses Diagnosis COVID-19 Infection- Primary documented in this encounter Administered Medications Inactive Administered Medications - up to 3 most recent administrations Medication Order MAR Action Action Date Dose Rate Site remdesivir 100 mg in NaCl 0.9% IVPB (VEKLURY) 100 mg, intravenous, at 200 mL/hr, Administer over 30 Minutes, Once, On Neha 03/28/23 at 1030, For 1 dose, Return the mini-bag plus bag and vial to pharmacy should a vacuum effect not be observed when reconstituting., Indications: COVID-19 New Bag 03/28/2023 10:16 AM CDT 100 mg 200 mL/h r sodium chloride 0.9 % injection 10 mL 10 mL, intra-catheter, As needed, line care, Starting on Neha 03/28/23 at 1005, Prior to blood sampling, post blood transfusion, or post blood sampling. Given 03/28/2023 10:49 AM CDT 10 mL Given 03/28/2023 10:15 AM CDT 10 mL documented in this encounter Additional Health Concerns Infection Onset Date Last Indicated Resolved Time COVID19 03/25/2023 03/25/2023 04/14/2023 5:47 AM HIV COUNSELOR Assessment Noted Time PHQ-9 Depression Total Score: 0 04/09/20 9:36 AM HIV COUNSELOR documented as of this encounter Care Teams Advertising Material Distributor Relationship Specialty Start Date End Date Cooper Jolly M.B.B.S., MHanna. [address] [place] [phone] PCP - General Internal Medicine 02/05/22 documented as of this encounter
--- OUTSIDE RECORDS SUMMARY | 2023-06-19 09:28 | XMS_ITS | Encounter Summary ---
Author Name Unknown Organization [facility] Address [address] [place] [address] Care Team Providers Care Infrastructure Technician Name Role Phone Cooper Jolly M.D. Primary Care Provid er Reason for Visit * Episode Based Medications (Routine) - Closed Specialty Diagnoses / Procedures Referred By Contac t Referred To Contact Transfusion Medicine / Infusion Therapy Diagnoses COVID-19 Infection Rem #1 Procedures [place] INJECTION, REMDESIVIR, 1 MG INF THER - Remdesivir Francisca Saenz APRN, C.N.P., D.N.P. [address] [place] [address] [facility] [place] [place] [address] [place] [address] Referral ID Status Reason Start Date Expiration Date Visits Re quested Visits Authorized [id number] Closed 03/26/2023 03/26/2024 3 3 Encounter Details Date Type Department Care Team (Late st Contact Info) Description 03/27/2023 2:15 PM CDT Infusion Department of Infusion Therapy in [place], [place] [address] [place] [address] Francisca Saenz APRN, C.N.P., D.N.P. [address] [place] [address] COVID-19 Infection (Primary Dx) Social [...] How often do you attend chur or anglican services? More than 4 times per year 04/09/2022 Do you belong to any clubs o r organizations such as restorationist groups, unions, fraternal or athletic groups, or [...] Answer Date Recorded PHQ-2 Score 0 04/09/2022 [facility] of Occupat ional Health [...] Sex Assigned at Male 04/29/2021 7:37 PM NUTRITIONAL CHEMIST Gender Identity Male 10/01/2020 9:14 PM CDT Sexual Orientation Straight 10/01/2020 9: 14 PM CDT documented as of this encounter Last Filed Vital Signs Vital Sign Reading Time Taken Comments Blood Pressure 116/70 03/27/2023 1:56 PM CDT Pulse 65 03/27/2023 1:56 PM CDT Temperature 36 ??C (96.8 ??F) 03/27/2023 1:56 PM CDT Respiratory Rate 16 03/27/2023 1:56 PM CDT Oxygen Saturation 100% 03/27/2023 1:56 PM CDT Inhaled Oxygen Concentration - - Weight - - Height - - Body Mass Index - - documented in this encounter Plan of Treatment Upcoming Encounters Date Type Department Care Team (Late st Contact Info) Description 06/21/2023 8:30 AM NUTRITIONAL CHEMIST Ancillary Procedure Department of Ophthalmology in [place], [place] [address] [place] [address] Alanis Barker O.D. [address] [phone] (Work) 06/21/2023 9:00 AM NUTRITIONAL CHEMIST Comprehensive Visit Department of Ophthalmology in [place], [place] [address] [place] [address] Brigid Hernandez M.D. [address] [place] [address] 07/17/2023 12:30 PM NUTRITIONAL CHEMIST Infusion Department of Infusion Therapy in [place], [place] [address] [place] [phone] Kamryn Alvarado, KIMANI, C.N.P. [address] [place] [phone] 09/04/2023 7:00 AM CDT Appointment Department of Laboratory Medicine in [place], [place] [address] [place] [phone] Wellington Valdivia M.D. [address] [place] [...] mL/hr, Administer over 30 Minutes, Once, On Sat03/27/23 at 1415, For 1 dose, Return the mini-bag plus bag and vial to pharmacy should a vacuum effect not be observed when reconstituting., Indications: COVID-19 New Bag 03/27/2023 2:10 PM CDT 100 mg 200 mL/hr sodium chloride 0.9 % injection 10 mL 10 mL, intra-catheter, As needed, line care, Starting on Sat03/27/23 at 1356, Prior to blood sampling, post blood transfusion, or post blood sampling. Given 03/27/2023 2:40 PM CDT 10 mL Given 03/27/2023 2:10 PM CDT 10 mL documented in this encounter Additional Health Concerns Infection Onset Date Last Indicated Resolved Time COVID19 03/25/2023 03/25/2023 04/14/2023 5:47 AM NUTRITIONAL CHEMIST Assessment Noted Time PHQ-9 Depression Total Score: 0 04/09/20 22 9:36 AM NUTRITIONAL CHEMIST documented as of this encounter Care Teams Infrastructure Technician Relationship Specialty Start Date End Date Cooper Jolly M.B.B.S., MHanna. [address] [place] [phone] PCP - General Internal Medicine 02/05/22 documented as of this encounter
--- OUTSIDE RECORDS SUMMARY | 2023-06-19 09:28 | XMS_ITS | Encounter Summary ---
Author Name Unknown Organization [facility] Address [address] [place] [address] Care Team Providers Care Chancery Clerk Name Role Phone Cooper Jolly M.D. Primary Care Provid er Reason for Referral * Outpatient (Routine) - Authorized Specialty Diagnoses / Procedures Referred By Contac t Referred To Contact Diagnoses Ectopy Ventricular Procedures ECG Heart rhythm monitor (Holter) Wellington Valdivia M.D. [address] [place] [address] [facility] Region Referral ID Status Reason Start Date Expiration Date V isits Requested Visits Authorized [id number] Authorized 05/09/2023 05/08/2024 1 1 [place] ACCOUNT REPRESENTATIVE * Outpatient (Routine) - Authorized Specialty Diagnoses / Procedures Referred By Contac t Referred To Contact Diagnoses Ectopy Ventricular Procedures ECG 12 Lead Wellington Valdivia M.D. 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 [address] [phone] [facility] Region Referral ID Status Reason Start Date Expiration Date Visits Re quested Visits Authorized [id number] Closed 09/06/2022 09/05/2025 1 1 Encounter Details Date Type Department Care Team (Late st Contact Info) Description 05/09/2023 10:00 AM RETAIL ACCOUNT REPRESENTATIVE Office Visit Department of Cardiovascular Diseases in [place], [place] [address] [phone] Wellington Valdivia M.D. 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 More than 4 times per year 04/09/2022 Do you belong to any clubs o r organizations such as sikh groups, unions, fraternal or athletic groups, or [...] Answer Date Recorded PHQ-2 Score 0 04/24/2023 [facility] - Occupational Stress Questionnaire Answer [...] Sex Assigned at Male 04/29/2021 7:37 PM RETAIL ACCOUNT REPRESENTATIVE Gender Identity Male 10/01/2020 9:14 PM CDT Sexual Orientation Straight 10/01/2020 9: 14 PM CDT documented as of this encounter Last Filed Vital Signs Vital Sign Reading Time Taken Comments Blood Pressure 115/69 05/09/2023 9:47 AM RETAIL ACCOUNT REPRESENTATIVE Pulse 62 05/09/2023 9:47 AM RETAIL ACCOUNT REPRESENTATIVE Temperature - - Respiratory Rate - - Oxygen Saturation 100% 05/09/2023 9:47 AM RETAIL ACCOUNT REPRESENTATIVE Inhaled Oxygen Concentration - - Weight 125 kg (276 lb 7.3 oz) 05/09/2023 9:47 AM RETAIL ACCOUNT REPRESENTATIVE Height - - Body Mass Index 37.57 04/24/2023 9:48 AM RETAIL ACCOUNT REPRESENTATIVE documented in this encounter Patient Instructions * Patient Instructions* Wellington Valdivia M.D. - 05/09/2023 10:00 AM RETAIL ACCOUNT REPRESENTATIVE 1. Continue medications without change. 2. Will repeat lipid profile, Apo B and lipoprotein a in August 2023 and contact patient with results and recommendations. Patient wishes to have nurse call. 3. Otherwise, follow up with Cardiology in March 2024 with labs, ECG and Holter monitor. [place] ACCOUNT REPRESENTATIVE documented in this encounter Progress Notes * Wellington Valdivia M.D. - 05/09/2023 10:00 AM CST SUBJECTIVE CHIEF COMPLAINT/REASON FOR VISIT Follow-up HISTORY OF PRESENT ILLNESS Mr. Aguirre is a very pleasant 73 y.o. male s/p AVR with 29 mm Amber?Felipe PERIMOUNT Magna/Magna Ease pericardial aortic valve (bioprosthetic valve) for severe symptomatic aortic stenosis 12/28/2020. Known coronary artery disease s/p CABG x 1 with COLON to LAD 12/28/2020. 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 No symptoms of exertional angina. No racing heart rates or palpitations. No orthopnea or PND. Syncope or presyncope. Still continues to have left-sided musculoskeletal discomfort which has been unchanged for many years and is relieved with Tylenol. Also reproducible by palpation patient. No associated symptoms. Patient was recently started on Inclisiran and receive 1st dose in March of 2023 and is scheduled for 2nd dose in June of 2023. For now he is continued on Zetia/ezetimibe and rosuvastatin 40 mg. ApoB was still greater than 55 mg/dL despite 1st dose of Inclisiran so will continue these medications. The following portions of the patient's history were reviewed and updated as appropriate: allergies, current medications, family history, medical history, social history, surgical history and problemlist. REVIEW OF SYSTEMS REVIEW OF SYSTEMS MEDICATIONS Current Outpatient Medications Medication Sig acetaminophen (TYLENOL) 500 mg capsule Take 1,000 mg by mouth 2 (two) times a day. amoxicillin (AMOXIL) 500 mg capsule TAKE FOUR CAPSULES BY MOUTH 30-60 MINUTES BEFORE APPOINTMENT artificial tears with lanolin (REFRESH P.M.) ophthalmic ointment Apply 0.5 inches to left eye at bedtime. aspirin [address] tablet Take 81 mg by mouth daily. ezetimibe (ZETIA) 10 mg tablet Take 1 tablet (10 mg total) by mouth daily. furosemide (LASIX) 40 mg tablet Take 40 mg by mouth daily as needed. metoprolol tartrate (LOPRESSOR) 25 mg tablet Take 1 tablet (25 mg total) by mouth 2 (two) times a day. olopatadine (PATADAY) 0.2 % ophthalmic solution 1 drop at bedtime. omeprazole (PriLOSEC) [address] capsule Take 1 capsule (20 mg total) by mouth daily. rosuvastatin (CRESTOR) 40 mg tablet Take 1 tablet (40 mg total) by mouth daily. triamcinolone (for_KENALOG) 0.1 % cream Apply 1 application topically as needed (bug bites). Medication changes today: No orders of the defined types were placed in this encounter. There are no discontinued medications. OBJECTIVE Vitals: 05/09/23 0947 BP: 115/69 BP Location: Right arm Patient Position: Sitting Cuff Size: Large Pulse: 62 SpO2: 100% Weight: 125 kg Body mass index is 37.57 kg/m??. PHYSICAL EXAMINATION General: Patient in no apparent distress or discomfort. Neck: Supple no jugular venous distension. Lungs: Normal respirations. Normal auscultation with no wheezes or crackles. Heart: Regular rate occasional ectopy. No murmurs, rubs or gallops Vascular: Good pulses of upper and lower extremities Extremities: No clubbing or cyanosis. No significant lower extremity edema. Neuro: Nonfocal patient moves all extremities spontaneously. Cranial nerves appear grossly intact. Psychiatric: Patient is alert and oriented to person place and time. No apparent mood or affect abnormalities. DIAGNOSTICS Lab Results Component Value Date NA 141 05/06/2023 KPLASMA 5.3 (H) 05/06/2023 CL 105 05/06/2023 BICARB 29 05/06/2023 CREATININE 1.14 05/06/2023 CREATPOC 1.1 08/15/2020 EGFR 67 05/06/2023 BUN 17 05/06/2023 ANIONGAP 7 05/06/2023 GLUCOSE 110 05/06/2023 GLUCOSEPOC 129 12/31/2020 CALCIUM 9.4 05/06/2023 MG 2.2 09/06/2021 Lab Results Component Value Date IRON 73 07/10/2022 TIBC 310 07/10/2022 FERRITIN 36 05/06/2023 Lab Results Component Value Date UBRUFUUO87 432 05/06/2023 FOLATE 12.1 05/06/2023 HAPTOGLOBIN 143 05/06/2023 LDH 250 (H) 05/06/2023 Lab Results Component Value Date WBC 5.4 05/06/2023 HGB 13.2 05/06/2023 HCT 41.7 05/06/2023 MCV 94.8 05/06/2023 PLT 158 05/06/2023 Lab Results Component Value Date CHOL 113 05/06/2023 CHOL 138 12/12/2022 CHOL 161 08/23/2022 Lab Results Component Value Date HDL 53 05/06/2023 HDL 47 12/12/2022 HDL 52 08/23/2022 Lab Results Component Value Date LDLCALC 39 05/06/2023 LDLCALC 69 12/12/2022 LDLCALC 92 08/23/2022 APOB 60 05/06/2023 LIPA 699 (H) 08/23/2022 Lab Results Component Value Date TRIG 114 05/06/2023 TRIG 125 12/12/2022 TRIG 91 08/23/2022 ECG August 23, 2022 reviewed: Sinus bradycardia. Ventricular rate 49 B.P.M.. With nonspecific T-wave abnormalities. No change compared to ECG September 06, 2021. Holter monitor report 08/24/2022 reviewed 1. The basic rhythm was sinus with intermittent sinus arrhythmia. The total analyzed time was 23 h 51 m. The heart rate varied from 42 to 107 bpm. The average HR was 68 bpm. 2. Premature ventricular complexes were noted singly, in one couplet, in bigeminy, in trigeminy andin one 3 beat ventricular run with a rate of 62 bpm. There were 3,151 PVCs recorded with a PVC burden of 3%. 3. Premature supraventricular complexes were noted singly and in five 3 to 23 beat atrial runs, maximum rate of 123 bpm. There were 91 PAC's recorded with a PAC burden of less than 1%. 4. The patient documented pain with no events noted with which to correlate. Transthoracic echocardiogram report 08/23/2022 reviewed: 1. Status post 29 mm Amber-Felipe PERIMOUNT Magna/Magna Ease pericardial aortic valve prosthesis and one-vessel CABG (12/28/2020). 2. Aortic valve prosthesis systolic mean Doppler gradient 17 mmHg. 3. No aortic valve prosthetic regurgitation. No aortic valve periprosthetic regurgitation. 4. Mildly enlarged left ventricular chamber size. 5. Calculated 2-D linear left ventricular ejection fraction 57%. 6. No regional wall motion abnormalities. 7. Normal left ventricular filling pressure. 8. Normal right ventricular chamber size with normal systolic function. 9. Estimated right ventricular systolic pressure 24 mmHg (right atrial pressure of 5 mmHg). 10. Normal inferior vena cava size with normal inspiratory collapse (>50%). 11. Normal mid ascending aorta diameter of 41 mm. 12. Compared to the report of 2021 the following changes have occurred: No aortic valve prosthetic regurgitation is noted on these current images. Side by side comparison of images performed. CORONARY DIAGNOSTIC SUMMARY 12/13/2020 reviewed Coronary artery dominance is right. Normal left main coronary. The middle left anterior descending artery is 80% obstructed by a discrete lesion. The distal segment is normal size, diseased. The proximal circumflex artery is 30% obstructed by a discrete lesion. The distal circumflex artery distal segment is small size. The proximal right coronary artery is 30% obstructed by multiple discrete lesions. The middle right coronary artery is 10% obstructed by a discrete lesion. The distal right coronary artery is 20% obstructed by a tubular lesion. The right posterolateral segment is 20% obstructed by a discrete lesion. The distal segment is large size. ASSESSMENT / PLAN #1 S/p AVR 29 mm Amber?Felipe PERIMOUNT Magna/Magna Ease pericardial aortic valve prosthesis 12/28/2020 Valves function normally by recent echocardiogram and by exam. Patient will continue on aspirin 81 mg once a day indefinitely. He will continue with endocarditis prophylaxis before appropriate dentalprocedures indefinitely. #2 CAD s/p CABG x 1 with COLON to LAD 12/28/2020 Patient doing well. No symptoms of angina. Preserved ejection fraction with no symptoms of heart failure or angina. 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 Will continue low-dose metoprolol. Repeat Holter monitor prior to follow-up in approximately 1 year. If increased ventricular ectopy will need to repeat echocardiogram. 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 Upper limits of normal for patient age and BSA 45 mm. Upon my reviewof echocardiogram sinus of Valsalva diameter 43 mm. Repeat echocardiogram in proximally 2 years. 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 For now given ApoB of 60 mg/dL will continue rosuvastatin 40 mg and Zetia/ezetimibe 10 mg calculated LDL at goal at 39 mg/dL and ApoB near goal at 60 mg/dL. Will recheck Apo B, lipid profile in lipoprotein a in August 2023 and contact patient with results. If significant decrease in ApoB can potentially discontinue Zetia/ezetimibe. #8 Mild obstructive sleep apnea. Patient without symptoms. Patient chose not to proceed with trial of CPAP therapy. #9 Intermittent nonexertional left-sided chest discomfort likely musculoskeletal, resolved #10 Erectile dysfunction Patient using Viagra p.r.n.. Aware that this medication cannot be used in conjunction with nitrate containing medications such as sublingual nitroglycerin. #11 Anemia, resolved No evidence of iron deficiency. B12 and folate within normal limits. Haptoglobin within normal limits. LDH mildly elevated. #12 Ventral hernia, asymptomatic PLAN 1. Given known coronary artery disease and elevated lipoprotein a will try to achieve goal LDL of 55 mg/dL or less. Will continue patient on the atorvastatin 40 mg. Will add Zetia/ezetimibe 10 mg daily. Prescription was sent to [facility] pharmacy in [place]. 2. Will recheck fasting lipid profile and ApoB in approximately 3 months and contact patient with results and recommendations. If patient's LDL not at goal will give patient a trial of atorvastatin/Lipitor [address] of the rosuvastatin/Crestor 40 mg and recheck lipid profile in 6 months. 3. Patient to follow up with Cardiology in approximately 6 months with labs. 4. Given elevated lipoprotein a discussed with patient advising first-degree relatives to be screened for elevated lipoprotein a and if present would recommend aggressive lowering of LDL cholesterol. [place] ACCOUNT REPRESENTATIVE documented in this encounter Plan of Treatment Upcoming Encounters Date Type Department Care Team (Late st Contact Info) Description 06/21/2023 8:30 AM RETAIL ACCOUNT REPRESENTATIVE Ancillary Procedure Department of Ophthalmology in [place], [place] [address] [place] [address] Alanis Barker O.D. [address] [phone] (Work) 06/21/2023 9:00 AM RETAIL ACCOUNT REPRESENTATIVE Comprehensive Visit Department of Ophthalmology in [place], [place] [address] [place] [address] Brigid Hernandez M.D. [address] [place] [phone] 07/17/2023 12:30 PM RETAIL ACCOUNT REPRESENTATIVE Infusion Department of Infusion Therapy in [place], [place] [address] [phone] Kamryn Alvarado, PAYROLL ACCOUNTING SPECIALIST, C.N.P. [address] [place] [phone] 09/04/2023 7:00 AM CDT Appointment Department of Laboratory Medicine in [place], [place] [address] [phone] Wellington Valdivia M.D. 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 Pectoris Expected: 04/09/2024 (Approximate), Expires: 05/09/2024 CBC without Differential Lab Routine Coronary Artery 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 Pectoris Expected: 04/09/2024 (Approximate), Expires: 05/09/2024 Lipid Panel Lab Routine Coronary Artery 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 Pectoris Elevated Lipoprotein A Expected: 04/09/2024 (Approximate), Expires: 05/09/2024 Lipoprotein (a) Lab Routine Coronary Artery 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 Pectoris Elevated Lipoprotein A Expected: 04/09/2024 (Approximate), Expires: 05/09/2024 Apolipoprotein B Lab Routine Coronary Artery 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 Pectoris Elevated Lipoprotein A Expected: 04/09/2024 (Approximate), Expires: 08/07/2024 ECG 12 Lead ECG Routine Ectopy Ventricular Expected: 04/09/2024 (Approximate), Expires: 08/07/2024 ECG Heart rhythm monitor (Holter) Cardiac Services Routine Ectopy Ventricular Expected: 04/09/2024 (Approximate), Expires: 08/07/2024 Scheduled Referrals Name Type Priority Associated Diagnoses Order Schedule Cardiovascular Disease office visit (clinic) Outpatient Referral Routine Replacement Aortic Valve Tissue Coronary Artery 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 Pectoris Cardiomyopathy (HCC) Ectopy Ventricular Hyperlipidemia 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 Unspecified (HCC) Apnea Sleep Obstructive Drug Induced Erectile Dysfunction Anemia Iron Deficiency Pain Chest Atypical Hernia Ventral Expected: 04/09/2024 (Approximate), Expires: 08/07/2024 documented as of this encounter Visit Diagnoses Diagnosis Replacement Aortic Valve Tissue- Primary Coronary Artery 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 [address] [phone] PCP - General Internal Medicine 02/05/22 documented as of this encounter
--- OUTSIDE RECORDS SUMMARY | 2023-06-19 09:28 | XMS_ITS | Encounter Summary ---
Author Name Unknown Organization [facility] Address [address] [place] [address] Care Team Providers Care Automated Teller Manager Name Role Phone Cooper Jolly M.D. Primary Care Provid er Reason for Visit * Episode Based Medications (Routine) - Closed Specialty Diagnoses / Procedures Referred By Contac t Referred To Contact Transfusion Medicine / Infusion Therapy Diagnoses COVID-19 Infection Rem #1 Procedures [place] INJECTION, REMDESIVIR, 1 MG INF THER - Remdesivir Francisca Saenz APRN, C.N.P., D.N.P. [address] [place] [address] [facility] Surge [facility]ah [address] [place] [address] Referral ID Status Reason Start Date Expiration Date Visits Re quested Visits Authorized [id number] Closed 03/26/2023 03/26/2024 3 3 Encounter Details Date Type Department Care Team (Late st Contact Info) Description 03/26/2023 2:15 PM CDT Infusion Department of Infusion Therapy in [place], [place] [address] [place] [address] Francisca Saenz APRN, C.N.P., D.N.P. [address] [place] [address] COVID-19 Infection (Primary Dx) Social [...] How often do you attend chur or adventist services? More than 4 times per year 04/09/2022 Do you belong to any clubs o r organizations such as hoahaoism groups, unions, fraternal or athletic groups, or [...] Date Recorded PHQ-2 Score 0 04/09/2022 [facility] - Occupational [...] Sex Assigned at Male 04/29/2021 7:37 PM CORN CROP SUPERVISOR Gender Identity Male 10/01/2020 9:14 PM CDT Sexual Orientation Straight 10/01/2020 9: 14 PM CDT documented as of this encounter Last Filed Vital Signs Vital Sign Reading Time Taken Comments Blood Pressure 118/82 03/26/2023 1:56 PM CDT Pulse 65 03/26/2023 1:56 PM CDT Temperature 35.6 ??C (96.1 ??F) 03/26/2023 1:56 PM CD T Respiratory Rate 16 03/26/2023 1:56 PM CDT Oxygen Saturation 100% 03/26/2023 1:56 PM CDT Inhaled Oxygen Concentration - - Weight - - Height - - Body Mass Index - - documented in this encounter Plan of Treatment Upcoming Encounters Date Type Department Care Team (Late st Contact Info) Description 06/21/2023 8:30 AM CORN CROP SUPERVISOR Ancillary Procedure Department of Ophthalmology in [place], [place] [address] [place] [address] Alanis Barker O.D. [address] [phone] (Work) 06/21/2023 9:00 AM CORN CROP SUPERVISOR Comprehensive Visit Department of Ophthalmology in [place], [place] [address] [place] [address] Brigid Hernandez M.D. [address] [place] [address] 07/17/2023 12:30 PM CORN CROP SUPERVISOR Infusion Department of Infusion Therapy in [place], [place] [address] [phone] Kamryn Alvarado, KIMANI, C.N.P. [address] [phone] 09/04/2023 7:00 AM CDT Appointment Department of Laboratory Medicine in [place], [place] [address] [place] [phone] Wellington Valdivia M.D. [address] [phone] documented as of this encounter Visit Diagnoses Diagnosis COVID-19 Infection- Primary documented in this encounter Administered Medications Inactive Administered Medications - up to 3 most recent administrations Medication Order MAR Action Action Date Dose Rate Site remdesivir 200 mg in NaCl 0.9% IVPB (VEKLURY) 200 mg, intravenous, at 200 mL/hr, Administer over 30 Minutes, Once, On Sat03/26/23 at 1415, For 1 dose, Return the mini-bag plus bag and vial to pharmacy should a vacuum effect not be observed when reconstituting., Indications: COVID-19 New Bag 03/26/2023 2:12 PM CDT 200 mg 200 mL/hr sodium chloride 0.9 % injection 10 mL 10 mL, intra-catheter, As needed, line care, Starting on Sat03/26/23 at 1510, Prior to blood sampling, post blood transfusion, or post blood sampling. Given 03/26/2023 3:00 PM CDT 10 mL Given 03/26/2023 2:00 PM CDT 10 mL documented in this encounter Additional Health Concerns Infection Onset Date Last Indicated Resolved Time COVID19 03/25/2023 03/25/2023 04/14/2023 5:47 AM CORN CROP SUPERVISOR Assessment Noted Time PHQ-9 Depression Total Score: 0 04/09/20 9:36 AM CORN CROP SUPERVISOR documented as of this encounter Care Teams Automated Teller Manager Relationship Specialty Start Date End Date Cooper Jolly M.B.B.S., MHanna. [address] [phone] PCP - General Internal Medicine 02/05/22 documented as of this encounter
--- OUTSIDE RECORDS SUMMARY | 2023-06-19 09:28 | XMS_ITS | Encounter Summary ---
Author Name Unknown Organization [facility] Address [address] [place] [address] Care Team Providers Care Assembler Truck Trailer Name Role Phone Cooper Jolly M.D. Primary Care Provid er Encounter Details Date Type Department Care Team (Late st Contact Info) Description 04/11/2023 1:45 PM GRAPHICS EDIT TECHNICIAN Office Visit Department of Orthopedic Surgery in [place], [place] [address] [place] [phone] Gregg Ferguson D.P.M. [address] [place] [phone] Radha Jacobson Pain Joint Foot Bilateral (Primary Dx) Discharge Disposition: Home or Self Care Social [...] How often do you attend chur or taoism services? More than 4 times per year 04/09/2022 Do you belong to any clubs o r organizations such as buddhist groups, unions, fraternal or athletic groups, or [...] Answer Date Recorded PHQ-2 Score 0 04/09/2022 [facility] [place] of Occupat ional Health - Occupational Stress [...] situation today? I have a [facility] place to live 02/03/2023 Education Answer Date Recorded What is the highest level of school you have completed or the highest degree you have received? Associate degree: occupational, technical, or vocational program 11/30/2020 Sex and Gender Information Value Date Recorded Sex Assigned at Male 04/29/2021 7:37 PM GRAPHICS EDIT TECHNICIAN Gender Identity Male 10/01/2020 9:14 PM CDT Sexual Orientation Straight 10/01/2020 9: 14 PM CDT documented as of this encounter Progress Notes * Radha Jacobson - 04/11/2023 1:45 PM CST Patients spouse picked up 3 pairs orthotics HICS EDIT TECHNICIAN documented in this encounter Plan of Treatment Upcoming Encounters Date Type Department Care Team (Late st Contact Info) Description 06/21/2023 8:30 AM GRAPHICS EDIT TECHNICIAN Ancillary Procedure Department of Ophthalmology in [place], [place] [address] [place] [address] Alanis Barker O.D. [address] [place] [phone] (Work) 06/21/2023 9:00 AM GRAPHICS EDIT TECHNICIAN Comprehensive Visit Department of Ophthalmology in [place], [place] [address] [place] [phone] Brigid Hernandez M.D. [address] [place] [phone] 07/17/2023 12:30 PM GRAPHICS EDIT TECHNICIAN Infusion Department of Infusion Therapy in [place], [place] [address] [place] [phone] Kamryn Alvarado, HUMAN SERVICES MANAGER, C.N.P. [address] [place] [phone] 09/04/2023 7:00 AM CDT Appointment Department of Laboratory Medicine in [place], [place] [address] [phone] Wellington Valdivia M.D. [address] [place] [phone] documented as of this encounter Visit Diagnoses Diagnosis Pain Joint Foot Bilateral- Primary documented in this encounter Additional Health Concerns Infection Onset Date Last Indicated Resolved Time COVID19 03/25/2023 03/25/2023 04/14/2023 5:47 AM GRAPHICS EDIT TECHNICIAN Assessment Noted Time PHQ-9 Depression Total Score: 0 04/09/20 22 9:36 AM GRAPHICS EDIT TECHNICIAN documented as of this encounter Care Teams Assembler Truck Trailer Relationship Specialty Start Date End Date Cooper Jolly M.B.B.S., MHanna. [address] [place] [phone] PCP - General Internal Medicine 02/05/22 documented as of this encounter
--- OUTSIDE RECORDS SUMMARY | 2023-06-19 09:28 | XMS_ITS | Encounter Summary ---
Author Name Unknown Organization [facility] Address [address] [place] [address] Care Team Providers Care Glass Toughening Operator Name Role Phone Cooper Jolly M.D. Primary Care Provid er Reason for Visit * Reason Onset Date Comments COVID Treatment Review 03/25/2023 Encounter Details Date Type Department Care Team (Latest Contact Info) Description 03/25/2023 Clinical Communication [facility] on the 4th Floor [address] [place] [phone] Gayatri Starkey, RDionnaNDionna [address] [place] [phone] COVID Treatment Review Social History Tobacco Use Types Packs/Day Years [...] How often do you attend chur or synagogue services? More than 4 times per year 04/09/2022 Do you belong to any clubs o r organizations such as jainism groups, unions, fraternal or athletic groups, or [...] Answer Date Recorded PHQ-2 Score 0 04/24/2023 [facility] of Occupat ional Health [...] your living situation today? I have a [facility] place to live 02/03/2023 Education Answer Date Recorded What is the highest level of school you have completed or the highest degree you have received? Associate degree: occupational, technical, or vocational program 11/30/2020 Sex and Gender Information Value Date Recorded Sex Assigned at Male 04/29/2021 7:37 PM MEDICAL DEVICE SALES Gender Identity Male 10/01/2020 9:14 PM CDT Sexual Orientation Straight 10/01/2020 9: 14 PM CDT documented as of this encounter Miscellaneous Notes * Telephone Encounter - Gayatri Starkey R.N. - 03/25/2023 3:49 PM CDT MWVCT COMMUNICATION NOTE The patient was contacted regarding a recent positive test result for COVID-19.. Treatment(s) Preliminarily Eligible for: Paxlovid and Remdesivir Monoclonal Antibody Screening Score (MASS) Total Points Current as of about an hour ago 5 0 - 3 Points: Low Risk 4 - 6 Points: Medium Risk >= 7 Points: High Risk Last Change: N/A Details This score is used to evaluate patient risk of complications with COVID-19 infection Points Metrics 2 Age: 73 Current as of about an hour ago 0 Has Chronic Respiratory Disease: No Current as of about an hour ago 0 Has Diabetes: No Current as of about an hour ago 0 Patient is Immune Compromised/Transplant Patient: No Current as of about an hour ago 1 BMI: BMI >/= 35 Dx on Problem List Current as of about an hour ago 2 Has CVD: Yes Current as of about an hour ago 0 Has Renal Disease (CKD 4 or 5, ESRD w/ Dialysis): No Current as of about an hour ago 0 Has Hypertension: No Current as of about an hour ago 0 : No Current as of about an hour ago Symptom Onset Date: 03/23 . Patient is between day 0-5 and having symptoms. Current Symptoms: body aches, cough (non-productive) , congestion , fatigue, generalized weakness, and shortness of breath If you are experiencing severe symptoms, please seek emergency medical attention. Severe symptoms may include new or increasing oxygen requirements, shortness of breath at rest, shortness of breath that limits walking short distances, chest pain (such as retrosternal or left sided chest pain, pain that radiates to the jaw or arm), and dizziness or lightheadedness that makes you unsteady or unableto stand or walk. Counseling Regarding Therapy for COVID-19 You may choose to accept or refuse any of the available treatments that we will review today. You may also stop treatment at any time. Your choice will not change your standard medical care. Regardless of your choice, you should continue to self-isolate and use infection control measures according to CDC guidelines (e.g., wear mask, isolate, social distance, avoid sharing personal items,and frequent handwashing). In addition, regardless of whether you accept any of the treatments we discuss today, if you develop worsening symptoms of COVID-19, you should reach out to your primary care provider or present to the nearest emergency department for evaluation. Treatment Discussion The patient is interested and eligible for treatment. Lab Treatment Criteria AST/ALT must be less than 10x Upper Limit Normal: Aspartate Aminotransferase (AST), S Date Value Ref Range Status 12/31/2020 32 8 - 48 U/L Final Alanine Aminotransferase (ALT), S Date Value Ref Range Status 12/31/2020 15 7 - 55 U/L Final Creatinine and an e-GFR: Creatinine Date Value Ref Range Status 08/23/2022 1.15 0.74 - 1.35 mg/dL Final eGFR Non-Black/ Date Value Ref Range Status 09/06/2021 63 >=60 mL/min/BSA Final Comment: ----ADDITIONAL INFORMATION---- Estimated GFR calculated using the 2009 CKD_EPI creatinine equation. eGFR-Non Black/ Date Value Ref Range Status 01/07/2021 90 >=60 mL/min/BSA Final Comment: ----ADDITIONAL INFORMATION---- Estimated GFR calculated using the 2009 CKD_EPI creatinine equation. eGFR Black/ Date Value Ref Range Status 09/03/2016 >60 >=60 [id number] Final eGFR-Black/ Date Value Ref Range Status 09/06/2021 73 >=60 mL/min/BSA Final Comment: ----ADDITIONAL INFORMATION---- Estimated GFR calculated using the 2009 CKD_EPI creatinine equation. 01/07/2021 >90 >=60 mL/min/BSA Final Comment: ----ADDITIONAL INFORMATION---- Estimated GFR calculated using the 2009 CKD_EPI creatinine equation. eGFR-Black/, POCT Date Value Ref Range Status 08/15/2020 77 >=60 mL/min/BSA Final Comment: ----ADDITIONAL INFORMATION---- Estimated GFR calculated using the 2009 CKD_EPI creatinine equation. eGFR Non-Black/, POCT Date Value Ref Range Status 08/15/2020 67 >=60 mL/min/BSA Final Comment: ----ADDITIONAL INFORMATION---- Estimated GFR calculated using the 2009 CKD_EPI creatinine equation. Estimated GFR (eGFR) Date Value Ref Range Status 08/23/2022 67 >=60 mL/min/BSA Final Comment: Estimated GFR calculated using the 2020 CKD_EPI creatinine equation. Patient's Creatinine or eGFR is: 67. Medication Treatment Criteria Please review patient mediations and if appropriate do a medication reconciliation with the patient. Is the patient on any medications that need further education? Yes. You will need to HOLD Atorvastatin for 8 days while taking Paxlovid. Day 1 is first day of taking Paxlovid. Treatment Options Paxlovid In adults, Paxlovid was approved by U.S. Food and Drug Administration for the treatment of flje-tn-daomabdx COVID-19 in adults who are at high risk for progression to severe COVID-19, including hospitalization or . Paxlovid is the fourth drug, and first oral antiviral pill, approved by the FDAto treat COVID-19. Paxlovid stops the replication of the virus that causes COVID-19 and has been shown to reduce the risk of hospitalization or by 87%. You will take Paxlovid twice/day for 5 days and you would need to cigar packer and picker and start the medication within 5 days of symptom onset. Side effects are uncommon, but abnormal taste, diarrhea and muscle aches have been reported. Serious reactions such as allergic reactions and liver failure are extremely uncommon. Tell your health care provider right away if you experience side effects. FDA Fact Sheet for Paxlovid: https://www.fda.gov/media/592128/download Guidance for : There is limited information regarding Paxlovid and but that the benefit likely outweighs the risk. [facility] supports the use of short term treatment for COVID-19 with Paxlovid while . If you have further questions, you may contact your care team. Guidance for Contraception: Use of ritonavir may reduce the efficacy of combined hormonal contraceptives. Advise patients using combined hormonal contraceptives to use an effective alternative contraceptive method or an additional barrier method of contraception For any questions regarding the cost of the medication please call your insurance company. Remdesivir Remdesivir is a FDA approved treatment for COVID-19 and has been used in hospitalized patients since the beginning of the pandemic. It is an IV medication that stops the replication of the virus thatcauses COVID-19 and has been shown to reduce the risk for hospitalization by 89%. You would receivean IV infusion once daily for 3 days in a row, and each appointment would take up to an hour. Side effects are uncommon but could include infusion reactions, such as low blood pressure, nausea,vomiting, sweating, and shivering. Increases in liver enzymes are rare and unlikely to occur at thedoses used to treat COVID-19. For any questions regarding the cost of the medication please call your insurance company. Treatment Decision The patient consents to Remdesivir. The infusion will be set up for scheduling at [facility]: [facility]. Isolation: COVID-19 Isolation: Stay home from work, school, or daycare until fever free for 24 hours without the use of fever reducing medications AND it has been at least 5 days since symptom onset (10 days ifconsidered immunocompromised). Continue to wear a face mask for 5 additional days. Home Care Points for Upper Respiratory Infection: - Wash your hands often with soap and water. - For fever or discomfort, give Acetaminophen (Tylenol) or Ibuprofen (Motrin) following the dosing recommendations on the technology applications engineer's label. - For a sore throat, gargle with 8 ounces of warm salt water several times a day for throat discomfort (1/4 tsp regular salt to 8 ounces or 1 cup warm water). Do not swallow salt water. Throat lozenges will help keep the throat lubricated. Hard candy, lollipops, and throat lozenges are equally effective. - Suctioning your 's nose can make it easier for your child to breathe and eat. Using a bulb syringe or nasal aspirator with saline drops, you can safely remove mucus from your child's nose. - Suction mucus from your child's nose before you feed your child. - Notify your primary care provider of any new or worsening symptoms. When to seek emergency care: Patient is 18 years of age or older and reports the following urgent symptoms: - New shortness of breath at rest. - Pain, pressure, or tightness in chest, jaw, or arm (unrelated to coughing). - New confusion or inability to stay alert and awake. - Dizziness when sitting or standing. - Noisy, wheezy, or raspy breathing that does not clear with coughing. - Inability to swallow liquids or saliva, muffled voice, or inability to open mouth fully. - Drooling. If you have any questions regarding symptom management please follow up with your PCP. If you have any questions or concerns regarding the treatment please call us back at [phone]. Our hours are Saturday-Saturday 8:30am-4:30pm and Saturday- Saturday 8:30am-12:00pm. Plan: Treatment/Monitoring Decisions: Remdesivir The infusion will be set up for scheduling at [facility]: [facility].. Disposition/Recommendation: recommended continue engagement in self-management activities Response to Education: patient/caller able to teach back Was the RN protocol completed? Yes The following references were used: Nursing or provider judgement, [facility] workflow(s), guidelines, and protocols, [facility] Protocols Meseret Starkey R.N. [facility] Care Team [facility] and [facility] documented in this encounter Plan of Treatment Upcoming Encounters Date Type Department Care Team (Late st Contact Info) Description 06/21/2023 8:30 AM MEDICAL DEVICE SALES Ancillary Procedure Department of Ophthalmology in [place], [place] [address] [place] [address] Alanis Barker O.D. [address] [phone] (Work) 06/21/2023 9:00 AM MEDICAL DEVICE SALES Comprehensive Visit Department of Ophthalmology in [place], [place] [address] [place] [phone] Brigid Hernandez M.D. [address] [place] [phone] 07/17/2023 12:30 PM MEDICAL DEVICE SALES Infusion Department of Infusion Therapy in [place], [place] [address] [phone] Kamryn Alvarado, KIMANI, C.N.P. [address] [phone] 09/04/2023 7:00 AM CDT Appointment Department of Laboratory Medicine in [place], [place] [address] [phone] Wellington Valdivia M.D. [address] [phone] documented as of this encounter Visit Diagnoses Diagnosis COVID-19 Infection- Primary documented in this encounter Additional Health Concerns Infection Onset Date Last Indicated Resolved Time COVID19 03/25/2023 03/25/2023 04/14/2023 5:47 AM MEDICAL DEVICE SALES Assessment Noted Time PHQ-9 Depression Total Score: 0 04/09/20 9:36 AM MEDICAL DEVICE SALES documented as of this encounter Care Teams Glass Toughening Operator Relationship Specialty Start Date End Date Cooper Jolly M.B.B.SDionna, MHanna. [address] [phone] PCP - General Internal Medicine 02/05/22 documented as of this encounter
--- OUTSIDE RECORDS SUMMARY | 2023-06-19 09:29 | XMS_ITS | Encounter Summary ---
Author Name Unknown Organization [facility] Address [address] [place] [address] Care Team Providers Care Medical Educator Name Role Phone Cooper Jolly M.D. Primary Care Provid er Encounter Details Date Type Department Care Team (Late st Contact Info) Description 10/29/2022 Clinical Communication Department of Cardiovascular Diseases in [place], [place] [address] [place] [phone] Wellington Valdivia M.D. [address] [place] [phone] Social History Tobacco Use Types Packs/Day Years [...] How often do you attend chur or druze services? More than 4 times per year 04/09/2022 Do you belong to any clubs o r organizations such as baptism groups, unions, fraternal or athletic groups, or [...] like food, housing, medical care, and heating? Not hard at all 04/09/2022 PHQ-2 Answer Date Recorded PHQ-2 Score 0 04/09/2022 [facility] of Occupat ional Health - Occupational [...] to strenuous exercise (like a brisk walk)? 3 days 04/09/2022 On average, how many minutes do you engage in exercise at this level? 120 min 04/09/2022 Hunger Vital Sign Answer Date Recorded Within the past 12 months, y ou worried that your food would run out before you got the money to buy more. Never true 04/09/20 Within the past 12 months, t he food you bought just didn't last and you didn't have money to get more. Never true 04/09/2022 PRAPARE - Transportation Answer Date Re corded In the past 12 months, has l ack of transportation kept you from medical appointments or from getting medications? No 03/27 In the past 12 months, has l ack of transportation kept you from meetings, work, or from getting things needed for daily living? No 04/09/2022 Housing Stability Vital Sign Answer Gavin e Recorded In the last 12 months, was t here a time when you were not able to pay the mortgage or rent on time? No 04/09/2022 In the last 12 months, how many places have you lived? 1 04/09/2022 In the last 12 months, was t here a time when you did not have a steady place to sleep or slept in a long term (including now)? No 04/09/2022 Depression Answer Date Recor ded PHQ-9 Total Score (max 27) 0 04/09 Nutrition Answer Date Recorded Nutrition: EVOO Fat Source No 04/09 On average, how many serving s of fruits and vegetables do you eat per day (serving size is equal to 1 cup or approximately the size of a tennis ball)? 0-1 04/09/2022 Dental Answer Date Recorded Dental: Regular Dentist Yes 01/25/20 Employment Answer Date Recorded Employment status Retired 04/09/2022 Education Answer Date Recorded What is the highest level of school you have completed or the highest degree you have received? Associate degree: occupational, technical, or vocational program 11/30/2020 Sex and Gender Information Value Date Recorded Sex Assigned at Male 04/29/2021 7:37 PM WORKFORCE MANAGER Gender Identity Male 10/01/2020 9:14 PM CDT Sexual Orientation Straight 10/01/2020 9: 14 PM CDT documented as of this encounter Miscellaneous Notes * Telephone Encounter - Sylvia Bar L.P.NDionna - 10/30/2022 10:29 AM CDT Progress note sent [facility] Dr. Valdivia's [facility] * Telephone Encounter - Yisel Das R.N. - 10/30/2022 9:34 AM CDT Srinivasan stopped by today requesting the last visit note from Dr. Valdivia's visit in which he was started on Zetia [facility]. This has been done. documented in this encounter Plan of Treatment Upcoming Encounters Date Type Department Care Team (Late st Contact Info) Description 06/21/2023 8:30 AM WORKFORCE MANAGER Ancillary Procedure Department of Ophthalmology in [place], [place] [address] [place] [address] Alanis Barker O.D. [address] [phone] (Work) 06/21/2023 9:00 AM WORKFORCE MANAGER Comprehensive Visit Department of Ophthalmology in [place], [place] [address] [place] [address] Brigid Hernandez M.D. [address] [place] [phone] 07/17/2023 12:30 PM WORKFORCE MANAGER Infusion Department of Infusion Therapy in [place], [place] [address] [phone] Kamryn Alvarado APRN, C.N.P. [address] [phone] 09/04/2023 7:00 AM CDT Appointment Department of Laboratory Medicine in [place], [place] [address] [phone] Wellington Valdivia M.D. [address] [phone] documented as of this encounter Visit Diagnoses Not on filedocumented in this encounter Additional Health Concerns Assessment Noted Time PHQ-9 Depression Total Score: 0 04/09/20 22 9:36 AM WORKFORCE MANAGER documented as of this encounter Care Teams Medical Educator Relationship Specialty Start Date End Date Cooper Jolly M.B.B.S., M.D. [address] [phone] PCP - General Internal Medicine 02/05/22 documented as of this encounter
--- OUTSIDE RECORDS SUMMARY | 2023-06-19 09:29 | XMS_ITS | Encounter Summary ---
Author Name Unknown Organization [facility] Address [address] [place] [address] Care Team Providers Care Tie Presser Name Role Phone Cooper Jolly M.D. Primary Care Provid er Encounter Details Date Type Department Care Team (Late st Contact Info) Description 12/13/2022 Clinical Communication Department of Cardiovascular Diseases in [place], [place] [address] [place] [phone] Wellington Valdivia M.D. [address] [place] [phone] Social History Tobacco Use Types Packs/Day Years [...] How often do you attend chur or islam services? More than 4 times per year 04/09/2022 Do you belong to any clubs o r organizations such as mosque groups, unions, fraternal or athletic groups, or [...] Answer Date Recorded PHQ-2 Score 0 04/09/2022 [facility] Occupat ional Health - Occupational [...] place to sleep or slept in a nursing home (including now)? No 04/09/2022 Depression Answer Date [...] Sex Assigned at Male 04/29/2021 7:37 PM MERCHANDISE STOCKER Gender Identity Male 10/01/2020 9:14 PM CDT Sexual Orientation Straight 10/01/2020 9: 14 PM CDT documented as of this encounter Miscellaneous Notes * Telephone Encounter - Sylvia Bar L.PDionnaNDionna - 12/13/2022 12:39 PM CDT Srinivasan and his informed. * Telephone Encounter - Wellington Valdivia M.D. - 12/13/2022 12:20 PM CDT Noted with regards to starting Zetia. 4 weeks should be enough to lower LDL/Apo B and in fact that did. Still want patient to be seen in hyperlipidemia/lipid Clinic. Thanks for sitting up appointment. * Telephone Encounter - Lindy Alexandra L.P.N. - 12/13/2022 11:35 AM CDT I called pt. with appt. at the lipid clinic on February 07 at 13:00. He wanted to let you know that he had only been on the Zetia for a month. [facility]'t [facility] Zetiauntil a month ago as it takes so long to get prescriptions from there.Just wanted to let you know. documented in this encounter Plan of Treatment Upcoming Encounters Date Type Department Care Team (Late st Contact Info) Description 06/21/2023 8:30 AM MERCHANDISE STOCKER Ancillary Procedure Department of Ophthalmology in [place], [place] [address] [place] [address] Alanis Barker O.D. [address] [place] [phone] (Work) 06/21/2023 9:00 AM MERCHANDISE STOCKER Comprehensive Visit Department of Ophthalmology in [place], [place] [address] [place] [phone] Brigid Hernandez M.D. [address] [place] [phone] 07/17/2023 12:30 PM MERCHANDISE STOCKER Infusion Department of Infusion Therapy in [place], [place] [address] [phone] Kamryn Alvarado APRN, C.N.P. [address] [place] [phone] 09/04/2023 7:00 AM CDT Appointment Department of Laboratory Medicine in [place], [place] [address] [place] [phone] Wellington Valdivia M.D. [address] [place] [phone] documented as of this encounter Visit Diagnoses Not on filedocumented in this encounter Additional Health Concerns Assessment Noted Time PHQ-9 Depression Total Score: 0 04/09/20 9:36 AM MERCHANDISE STOCKER documented as of this encounter Care Teams Tie Presser Relationship Specialty Start Date End Date Cooper Jolly M.B.B.SDionna, MHanna. [address] [place] [phone] PCP - General Internal Medicine 02/05/22 documented as of this encounter
--- OUTSIDE RECORDS SUMMARY | 2023-06-19 09:29 | XMS_ITS | Encounter Summary ---
Author Name Unknown Organization [facility] Address [address] [place] [address] Care Team Providers Care Planning Associate Name Role Phone Cooper Jolly M.D. Primary Care Provid er Encounter Details Date Type Department Care Team (Latest Contact Info) Description 12/12/2022 9:24 AM CDT - 12/12/2022 11:59 PM CDT Hospital Encounter Department of Laboratory Medicine in [place], [place] [address] [place] [phone] Wellington Valdivia M.D. [address] [place] [phone] Coronary Artery 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 Pectoris; Hyperlipidemia Mixed Discharge Disposition: Home or Self Care Social [...] How often do you attend chur or yazidism services? More than 4 times per year 04/09/2022 Do you belong to any clubs o r organizations such as mandaeism groups, unions, fraternal or athletic groups, or [...] Answer Date Recorded PHQ-2 Score 0 04/09/2022 [facility] of Occupat ional Health - Occupational Stress [...] place to sleep or slept in a chcf (including now)? No 04/09/2022 Depression Answer Date [...] Sex Assigned at Male 04/29/2021 7:37 PM ASSISTANT QUALITY MANAGER Gender Identity Male 10/01/2020 9:14 PM CDT Sexual Orientation Straight 10/01/2020 9: 14 PM CDT documented as of this encounter Medications at Time of Discharge Medication Sig Dispensed Refills Start Date End Date acetaminophen (TYLENOL) 500 mg capsule Take 1,000 mg by mouth 2 (two) times a day. 0 artificial tears with lanolin (REFRESH P.M.) ophthalmic ointment Apply 0.5 inches to left eye at bedtime. 3 g 11 07/27/2022 07/27/[address] tablet Take 81 mg by mouth daily. 0 furosemide (LASIX) 40 mg tablet Take 40 mg by mouth daily as needed. 0 olopatadine (PATADAY) 0.2 % ophthalmic solution 1 drop at bedtime. 0 triamcinolone (for_KENALOG) 0.1 % cream Apply 1 application topically as needed (bug bites). 0 05/02/2016 amoxicillin (AMOXIL) 500 mg capsule TAKE FOUR CAPSULES BY MOUTH 30-60 MINUTES BEFORE APPOINTMENT 12 capsule 0 06/12/2022 04/24/2023 ezetimibe (ZETIA) 10 mg tabletIndications:Cor onary Artery 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 Pectoris,Hyperlipidem ia Mixed Take 1 tablet (10 mg total) by mouth daily. 90 tablet 3 09/06/2022 04/24/2023 metoprolol tartrate (LOPRESSOR) 50 mg tablet Take 0.5 tablets (25 mg total) by mouth 2 (two) times a day. 90 tablet 3 04/17/2021 04/24/2023 omeprazole (PriLOSEC) [address] capsule Take 20 mg by mouth daily. 0 03/14/2012 04/24/2023 rosuvastatin (CRESTOR) 40 mg tablet Take 1 tablet (40 mg total) by mouth daily. 90 tablet 3 12/05/2020 04/24/2023 documented as of this encounter Plan of Treatment Upcoming Encounters Date Type Department Care Team (Late st Contact Info) Description 06/21/2023 8:30 AM ASSISTANT QUALITY MANAGER Ancillary Procedure Department of Ophthalmology in [place], [place] [address] [place] [address] Alanis Barker O.D. [address] [phone] (Work) 06/21/2023 9:00 AM ASSISTANT QUALITY MANAGER Comprehensive Visit Department of Ophthalmology in [place], [place] [address] [place] [address] Brigid Hernandez M.D. [address] [place] [phone] 07/17/2023 12:30 PM ASSISTANT QUALITY MANAGER Infusion Department of Infusion Therapy in [place], [place] [address] [place] [phone] Kamryn Alvarado, KIMANI, C.N.P. [address] [place] [phone] 09/04/2023 7:00 AM CDT Appointment Department of Laboratory Medicine in [place], [place] [address] [phone] Wellington Valdivia M.D. 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 Mixed APOLIPOPROTEIN B, P Routine 12/12/2022 9 :41 AM CDT Coronary Artery 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 Pectoris Hyperlipidemia Mixed documented in this encounter Results * Lipid Panel (12/12/2022 9:41 AM CDT) Triglycerides 125 mg/dL 12/12/2022 10:22 AM CDT [facility] Comment: ----REFERENCE VALUE---- Normal: <150 mg/dL Borderline High: 150-199 mg/dL High: 200-499 mg/dL Very High: > or =500 mg/dL Cholesterol, Total 138 mg/dL 2022 10:22 AM CDT [facility] Comment: ----REFERENCE VALUE---- Desirable: < 200 mg/dL Borderline High: 200 - 239 mg/dL High: > or = 240 mg/dL Cholesterol, LDL, Calculated 69 mg/dL 12/12/2022 10:22 AM CDT [facility] Comment: ----REFERENCE VALUE---- Desirable: <100 mg/dL Above Desirable: 100-129 mg/dL Borderline High: 130-159 mg/dL High: 160-189 mg/dL Very High: >=190 mg/dL ----ADDITIONAL INFORMATION---- LDL cholesterol calculated using the Stacy/NIH equation. Cholesterol, HDL 47 >=40 mg/dL 12/13/19 10:22 AM CDT [facility] Cholesterol, Non-HDL, Calculated 91 mg/dL 12/12/2022 10:22 AM CDT [facility] Comment: ----REFERENCE VALUE---- Desirable: <130 mg/dL Above Desirable: 130-159 mg/dL Borderline High: 160-189 mg/dL High: 190-219 mg/dL Very High: > or =220 mg/dL Fasting (8 HR or more) No 12/12/2022 9:42 AM CDT [facility] Blood (Blood, Venous) 12/12/2022 9:41 AM CDT 12/12/2022 9:42 AM CDT Wellington Valdivia M.D. LAB BLOOD ADD-ON Performing Organization Address City/State/[facility] Co de Phone Number [facility] [address] [place] [address], [facility] AUST [facility] [address] [place] [address] * Apolipoprotein B (12/12/2022 9:41 AM CDT) Apolipoprotein B, S 82 mg/dL 12/13 10:23 AM CDT DTL Comment: ----REFERENCE VALUE---- Desirable: <90 Above Desirable: 90-99 Borderline high: 100-119 High: 120-139 Very high: > or = 140 Blood (Blood, Venous) 12/12/2022 9:41 AM CDT 12/13/2022 7:57 AM CDT Wellington Valdivia M.D. LAB BLOOD NON ADD -ON [facility] [address] [place] [address], [place] DTL [facility] [address] [place] [address] documented in this encounter Visit Diagnoses Diagnosis Coronary Artery 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 Pectoris Hyperlipidemia Mixed documented in this encounter Additional Health Concerns Assessment Noted Time PHQ-9 Depression Total Score: 0 04/09/20 9:36 AM ASSISTANT QUALITY MANAGER documented as of this encounter Care Teams Planning Associate Relationship Specialty Start Date End Date Cooper Jolly M.B.B.S., Berna. [address] [phone] PCP - General Internal Medicine 02/05/22 documented as of this encounter
--- OUTSIDE RECORDS SUMMARY | 2023-06-19 09:29 | XMS_ITS | Encounter Summary ---
Author Name Unknown Organization [facility] Address [address] [place] [address] Care Team Providers Care Steam Press Operator Name Role Phone Cooper Jolly M.D. Primary Care Provid er Reason for Visit * Reason Onset Date Comments COVID Nurse Line 03/25/2023 Encounter Details Date Type Department Care Team (Late st Contact Info) Description 03/25/2023 Nurse Triage Department of Internal Medicine in [place], [place] [address] [place] [phone] Danelle Tim S, R.N. [address] [place] [address] COVID Nurse Line Social History Tobacco Use Types Packs/Day Years [...] any clubs o r organizations such as yarsani groups, unions, fraternal or athletic groups, or [...] Answer Date Recorded PHQ-2 Score 0 04/09/2022 [facility] of Occupat ional Health - Occupational [...] your living situation today? I have a [facility] place to live 02/03/2023 Education Answer Date Recorded What is the highest level of school you have completed or the highest degree you have received? Associate degree: occupational, technical, or vocational program 11/30/2020 Sex and Gender Information Value Date Recorded Sex Assigned at Male 04/29/2021 7:37 PM PATTERNMAKER PLASTER Gender Identity Male 10/01/2020 9:14 PM CDT Sexual Orientation Straight 10/01/2020 9: 14 PM CDT documented as of this encounter Miscellaneous Notes * Telephone Encounter - Tim, Danelle Boo R.N. - 03/25/2023 8:55 AM CDT Chief Complaint / Reason for Call Patient is a 73 y.o. male calling regarding COVID Nurse Line. Assessment Concern: Tested positive for Covid today, symptoms started 2 days ago. Symptoms include runny nose,loss of appetite, cough and watery eyes. was positive 03/18. Feels he is keeping his symptoms under control. Your coronavirus nasal swab has come back positive for SARS-CoV-2, the virus that causes COVID-19. This means that you have COVID-19 and can spread it to others. You must isolate at home to keep others safe and prevent the spread of the virus. COVID-19 Isolation Beginning of isolation (day 0) is considered the start of onset of symptoms. Isolate at home with minimal to no contact with other people living in your house until all the following are true: It has been at least 5 days since your symptoms started. Or, if you have no symptoms, it has been at least 5 days since your positive COVID-19 test. If you are immune compromised, isolate for at least 10 days. You are fever free for at least 24 hours without the use of fever-reducing medications. If older than 2 years of age, wear a mask everywhere you go for an additional 5 days. Continue to wear a mask in indoor spaces when community transmission is high. What should you tell your close contacts? Wear a mask for 10 days following the close contact exposure. They do not need to quarantine if they do not have symptoms. Get tested for COVID-19 five days after the close contact exposure. If they develop symptoms, they need to quarantine and get tested for COVID-19. Self Cares Getting plenty of rest, staying hydrated and taking over the counter medications can help you feel better. You may use acetaminophen, ibuprofen or naproxen as indicated on the label to control fever,muscle aches, headaches and sore throat. Adults may use other over the counter medications as needed for cough and congestion. Treatment options are based on a review of your documented past medical history in the [facility] medical record. If you should develop any of the following symptoms, seek emergent care: Trouble breathing, persistent pain or pressure in the chest, new confusion, inability to wake or stay awake, or pale, wheeler, orblue-colored skin, lips or nail bed, depending on the skin tone. Response to Education: patient/caller able to teach back Caller agreeable to plan of care: yes Patient is requesting treatment for a COVID-19 infection. MASS: 5 CAST: 4 Symptom onset date: 03/23 Aspartate Aminotransferase (AST), S Date Value Ref Range Status 12/31/2020 32 8 - 48 U/L Final Alanine Aminotransferase (ALT), S Date Value Ref Range Status 12/31/2020 15 7 - 55 U/L Final Creatinine Date Value Ref Range Status 08/23/2022 [...] Value Ref Range Status 09/03/2016 >60 >=60 [id number] Final eGFR-Black/ Date Value Ref Range Status [...] calculated using the 2020 CKD_EPI creatinine equation. Home cares tried: Mucinex, 'night time Tylenol cold'. Calling to request: nurse advise The recommended disposition is The following treatment or testing is indicated by a health care provider in the next 24 hours. documented in this encounter Plan of Treatment Upcoming Encounters Date Type Department Care Team (Late st Contact Info) Description 06/21/2023 8:30 AM PATTERNMAKER PLASTER Ancillary Procedure Department of Ophthalmology in [place], [place] [address] [place] [address] Alanis Barker O.D. [address] [phone] (Work) 06/21/2023 9:00 AM PATTERNMAKER PLASTER Comprehensive Visit Department of Ophthalmology in [place], [place] [address] [place] [phone] Brigid Hernandez M.D. [address] [place] [phone] 07/17/2023 12:30 PM PATTERNMAKER PLASTER Infusion Department of Infusion Therapy in [place], [place] [address] [place] [phone] Kamryn Alvarado, WRAPPER LEAF INSPECTOR, C.N.P. [address] [place] [phone] 09/04/2023 7:00 AM CDT Appointment Department of Laboratory Medicine in [place], [place] [address] [phone] Wellington Valdivia M.D. [address] [place] [phone] documented as of this encounter Procedures Procedure Name Priority Date/Time Associated Diagnosis Comments EXTM HOME SARS CORONAVIRUS-2 (COVID-19) ANTIGEN, V Routine 03/25/2023 documented in this encounter Results * (ABNORMAL) EXT Home SARS Coronavirus-2 (COVID-19) Antigen (03/25/2023) EXT Home SARS-CoV-2 Antigen Presumptive Positive(A) Presumptive Negative OTHER (SPECIFY IN INSURANCE CLAIMS REPRESENTATIVE) Swab 03/25/2023 Historical Provider LAB MICROBIOLOGY - G ENERAL ORDERABLES OTHER (SPECIFY IN INSURANCE CLAIMS REPRESENTATIVE) N/A documented in this encounter Visit Diagnoses Not on filedocumented in this encounter Additional Health Concerns Infection Onset Date Last Indicated Resolved Time COVID19 03/25/2023 03/25/2023 04/14/2023 5:47 AM PATTERNMAKER PLASTER Assessment Noted Time PHQ-9 Depression Total Score: 0 04/09/20 9:36 AM PATTERNMAKER PLASTER documented as of this encounter Care Teams Steam Press Operator Relationship Specialty Start Date End Date Cooper Jolly M.B.B.S., M.D. [address] [place] [phone] PCP - General Internal Medicine 02/05/22 documented as of this encounter
--- OUTSIDE RECORDS SUMMARY | 2023-06-19 09:29 | XMS_ITS | Encounter Summary ---
Author Name Unknown Organization [facility] Address [address] [place] [address] Care Team Providers Care Boating Safety Officer Name Role Phone Cooper Jolly M.D. Primary Care Provid er Encounter Details Date Type Department Care Team (Late st Contact Info) Description 02/28/2023 Clinical Communication Department of Internal Medicine in [place], [place] [address] [place] [phone] Sienna Duncan, Pharm.D., R.Ph. [address] [place] [phone] Social History Tobacco Use Types Packs/Day Years [...] How often do you attend chur or shinto services? More than 4 times [...] Answer Date Recorded PHQ-2 Score 0 04/09/2022 [facility] of Occupat ional Health - Occupational [...] your living situation today? I have a [facility] place to live 02/03/2023 Education Answer Date Recorded What is the highest level of school you have completed or the highest degree you have received? Associate degree: occupational, technical, or vocational program 11/30/2020 Sex and Gender Information Value Date Recorded Sex Assigned at Male 04/29/2021 7:37 PM MUSEUM GUIDE Gender Identity Male 10/01/2020 9:14 PM CDT Sexual Orientation Straight 10/01/2020 9: 14 PM CDT documented as of this encounter Miscellaneous Notes * Telephone Encounter - Sienna Duncan Pharm.D., R.Ph. - 03/14/2023 8:30 AM CDT It looks like the prior authorization for this plan is still pending review. Is there a way for us to inquire about the status? * Telephone Encounter - Sienna Duncan Pharm.D., R.Ph. - 02/28/2023 3:01 PM CDT An inclisiran therapy plan was ordered 02/14/23. I do not see an appointment scheduled for this patient. I am not sure if this type of therapy plan is working correctly. Are you able to help? documented in this encounter Plan of Treatment Upcoming Encounters Date Type Department Care Team (Late st Contact Info) Description 06/21/2023 8:30 AM MUSEUM GUIDE Ancillary Procedure Department of Ophthalmology in [place], [place] [address] [place] [address] Alanis Barker O.D. [address] [place] [phone] (Work) 06/21/2023 9:00 AM MUSEUM GUIDE Comprehensive Visit Department of Ophthalmology in [place], [place] [address] [place] [phone] Brigid Hernandez M.D. [address] [place] [address] 07/17/2023 12:30 PM MUSEUM GUIDE Infusion Department of Infusion Therapy in [place], [place] [address] [phone] Kamryn Alvarado, KIMANI, C.N.P. [address] [place] [phone] 09/04/2023 7:00 AM CDT Appointment Department of Laboratory Medicine in [place], [place] [address] [phone] Wellington Valdivia M.D. [address] [place] [phone] documented as of this encounter Visit Diagnoses Not on filedocumented in this encounter Additional Health Concerns Infection Onset Date Last Indicated Resolved Time COVID19 03/25/2023 03/25/2023 04/14/2023 5:47 AM MUSEUM GUIDE Assessment Noted Time PHQ-9 Depression Total Score: 0 04/09/20 9:36 AM MUSEUM GUIDE documented as of this encounter Care Teams Boating Safety Officer Relationship Specialty Start Date End Date Cooper Jolly M.B.B.SDionna, M.Elidia. [address] [place] [phone] PCP - General Internal Medicine 02/05/22 documented as of this encounter
--- OUTSIDE RECORDS SUMMARY | 2023-06-19 09:29 | XMS_ITS | Encounter Summary ---
Author Name Unknown Organization [facility] Address [address] [place] [address] Care Team Providers Care Software Support Analyst Name Role Phone Cooper Jolly M.D. Primary Care Provid er Reason for Referral * Outpatient (Routine) - Authorized Specialty Diagnoses / Procedures Referred By Swetha malagon Referred To Contact Ophthalmology Diagnoses Epiphora Left Tatianna Mauricio O.D. [address] [place] [phone] [facility] Referral ID Status Reason Start Date Expiration Date V isits Requested Visits Authorized [id number] Authorized 12/20/2022 12/20/2023 1 1 * Outpatient (Routine) - Authorized Specialty Diagnoses / Procedures Referred By Swetha malagon Referred To Contact Ophthalmology Tatianna Mauricio O.D. [address] [place] [phone] [facility] Referral ID Status Reason Start Date Expiration Date V isits Requested Visits Authorized [id number] Authorized 12/18/2022 12/17/2025 1 1 Scheduling Instructions Year check - fam hx AMD Reason for Visit * Reason Comments Eye Exam Macular Degeneration * Outpatient (Routine) - Closed Specialty Diagnoses / Procedures Referred By Swetha malagon Referred To Contact Ophthalmology Tatianna Mauricio O.D. [address] [phone] [facility] Region Referral ID Status Reason Start Date Expiration Date Visits Re quested Visits Authorized [id number] Closed 11/09/2021 11/09/2022 1 1 Encounter Details Date Type Department Care Team (Latest Contact Info) Description 12/18/2022 2:40 PM CDT Office Visit Department of Ophthalmology in [place], [place] [address] [phone] Tatianna Mauricio O.D. [address] [phone] (Work) Epiphora Left (Primary Dx); Dry Eye Syndrome Bilateral; Presence Of Intraocular Lens; Macular Degeneration Family History Discharge Disposition: Home or Self Care Social [...] Date Recorded PHQ-2 Score 0 04/09/2022 [facility] - [...] money to buy more. Never true 04/09/20 22 Within the past 12 months, t he [...] place to sleep or slept in a longterm (including now)? No 04/09/2022 Depression Answer Date [...] Sex Assigned at Male 04/29/2021 7:37 PM [employer] Gender Identity Male 10/01/2020 9:14 PM CDT Sexual Orientation Straight 10/01/2020 9: 14 PM CDT documented as of this encounter Progress Notes * Tatianna Mauricio O.D. 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 Pt declined referral to oculoplastics at this time 12/20/22 - pt requested referral to oculoplastics - referral sent documented in this encounter Miscellaneous Notes * Addendum Note - Tatianna Mauricio O.D. - 12/18/2022 2:40 PM CDTAddended by: TATIANNA MAURICIO on: 12/20/2022 08:18 AM Modules accepted: Orders documented in this encounter Plan of Treatment Upcoming Encounters Date Type Department Care Team (Late st Contact Info) Description 06/21/2023 8:30 AM [employer] Ancillary Procedure Department of Ophthalmology in [place], [place] [address] [place] [address] Tatianna Mauricio O.D. [address] [phone] (Work) 06/21/2023 9:00 AM [employer] Comprehensive Visit Department of Ophthalmology in [place], [place] [address] [place] [address] Brigid Hernandez M.D. [address] [place] [address] 07/17/2023 12:30 PM [employer] Infusion Department of Infusion Therapy in [place], [place] [address] [phone] Kamryn Alvarado APRN, C.N.P. [address] [phone] 09/04/2023 7:00 AM CDT Appointment Department of Laboratory Medicine in [place], [place] [address] [phone] Wellington Valdivia M.D. [address] [phone] Scheduled Referrals Name Type Priority Associated Diagnoses Order Schedule Ophthalmology office visit (clinic) Outpatient Referral Routine Expected: 12/19/2023 (Approximate), Expires: 03/20/2024 Ophthalmology - Oculoplastic and orbital surgery consult (clinic) Outpatient Referral Routine Epiphora Left Expected: 12/20/2022 (Approximate), Expires: 03/22/2024 documented as of this encounter Visit Diagnoses Diagnosis Epiphora Left- Primary Dry Eye Syndrome Bilateral Presence Of Intraocular Lens Macular Degeneration Family History documented in this encounter Additional Health Concerns Assessment Noted Time PHQ-9 Depression Total Score: 0 04/09/20 22 9:36 AM [employer] documented as of this encounter Care Teams Software Support Analyst Relationship Specialty Start Date End Date Cooper Jolly M.B.B.S., MHanna. [address] [phone] PCP - General Internal Medicine 02/05/22 documented as of this encounter
--- OUTSIDE RECORDS SUMMARY | 2023-06-19 09:29 | XMS_ITS | Encounter Summary ---
Author Name Unknown Organization [facility] Address [address] [place] [address] Care Team Providers Care Concrete Vibrator Operator Name Role Phone Cooper Jolly M.D. Primary Care Provid er Reason for Referral * Outpatient (Routine) - Closed Specialty Diagnoses [...] Rupture Unspecified (HCC) Wellington Valdivia M.D. [address] [place] [phone] [facility] Region Referral ID Status Reason Start Date Expiration Date Visits Re quested Visits Authorized [id number] Closed 09/06/2022 09/05/20[address] Valdivia in approximately 6 months with labs 3-10 days before appointment. Reason for Visit * Reason Comments Follow-up 1 year * Outpatient (Routine) - Closed Specialty Diagnoses / Procedures Referred By Swetha malagon Referred To Contact Cardiovascular Disease Diagnoses Replacement Aortic Valve Tissue Coronary Artery 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 Pectoris Cardiomyopathy (HCC) Ectopy Ventricular Dilatation Ascending Aorta (HCC) Hyperlipidemia Mixed Pain Chest Atypical Drug Induced Erectile Dysfunction Apnea Sleep Obstructive Hernia Ventral Wellington Valdivia M.D. [address] [place] [phone] [facility] Region Referral ID Status Reason Start Date Expiration Date Visits Re quested Visits Authorized [id number] Closed 09/07/2021 09/07/2022 1 1 Encounter Details Date Type Department Care Team (Late st Contact Info) Description 09/06/2022 8:30 AM CDT Office Visit Department of Cardiovascular Diseases in [place], [place] [address] [place] [phone] Wellington Valdivia M.D. [address] [phone] Replacement Aortic Valve Tissue (Primary Dx); Coronary Artery 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 Pectoris; Cardiomyopathy (HCC); Ectopy Ventricular; Hyperlipidemia Mixed; Thoracic Aortic Aneurysm Without Rupture Unspecified (HCC); Elevated Lipoprotein A; Pain Chest Atypical; Drug Induced Erectile Dysfunction; Apnea Sleep Obstructive; Hernia Ventral; Anemia Iron Deficiency Social History Tobacco Use Types Packs/Day Years [...] How often do you attend chur or baptist services? More than 4 times per year 04/09/2022 Do you belong to any clubs o r organizations such as anabaptism groups, unions, fraternal or athletic groups, or [...] Answer Date Recorded PHQ-2 Score 0 04/09/2022 [facility] - Occupational Stress Questionnaire Answer Date [...] Sex Assigned at Male 04/29/2021 7:37 PM SOCIAL WORK COORDINATOR Gender Identity Male 10/01/2020 9:14 PM CDT Sexual Orientation Straight 10/01/2020 9: 14 PM CDT documented as of this encounter Last Filed Vital Signs Vital Sign Reading Time Taken Comments Blood Pressure 115/78 09/06/2022 8:51 AM CDT Pulse 74 09/06/2022 8:21 AM CDT Temperature - - Respiratory Rate - - Oxygen Saturation 98% 09/06/2022 8:19 AM CDT Inhaled Oxygen Concentration - - Weight 123 kg (270 lb 11.6 oz) 09/06/2022 8:19 A M CDT Height 182.7 cm (5' 11.93) 09/06/2022 8:19 AM C DT Body Mass Index 36.79 09/06/2022 8:19 AM CDT documented in this encounter Patient Instructions * Patient Instructions* Wellington Valdivia M.D. - 09/06/2022 8:30 AM CDT 1. Given known coronary artery disease and elevated lipoprotein a will try to achieve goal LDL of 55 mg/dL or less. Will continue patient on the atorvastatin 40 mg. Will add Zetia/ezetimibe 10 mg daily. Prescription was sent to [facility] in [place]. 2. Will recheck fasting lipid profile and [...] would recommend aggressive lowering of LDL cholesterol. documented in this encounter Progress Notes * Wellington Valdivia M.D. - 09/06/2022 8:30 AM CDT SUBJECTIVE CHIEF COMPLAINT/REASON FOR VISIT Follow-up (1 year) HISTORY OF PRESENT ILLNESS Mr. Aguirre is a very pleasant 72 y.o. male s/p AVR with 29 mm Amber?Felipe PERIMOUNT Magna/Magna Ease pericardial aortic valve (bioprosthetic valve) for severe symptomatic aortic stenosis 12/28/2020. Known coronary artery disease s/p CABG x 1 with COLON to LAD 12/28/2020. 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 He is exercising 6 days of the week. No symptoms of angina or shortness of breath. No racing heart rates or palpitations. No syncope or presyncope. Has mild anemia. Denies any easy bruising or bleeding. No blood in stools or urine. Patient had recent colonoscopy with 3 benign polyps have repeat colonoscopy in approximately 3 years. Patient continues on rosuvastatin 40 mg with no significant myalgias. Taking medication at night before bedtime. The following portions of the patient's history were reviewed and updated as appropriate: allergies, current medications, family history, medical history, social history, surgical history and problemlist. REVIEW OF SYSTEMS Constitutional: - Negative for fatigue and fever. Skin: - Negative for skin rash. Eyes: - Negative for double vision. ENT: - Negative for difficulty hearing. Respiratory: Positive for shortness of breath. - Negative for wheezing. Cardiovascular: - Negative for chest pain, pressure or tightness, swelling in the legs or feet, rapid or flutteringheart beat, pain in the calf muscles when walking and shortness of breath when lying flat. Gastrointestinal: Positive for constipation and heartburn. - Negative for blood in stool. Genitourinary: - Negative for blood in urine. Hematologic: - Negative for bruises or bleeds easily. Musculoskeletal: - Negative for muscle pain/stiffness. Neurological: - Negative for loss of consciousness, light-headedness and blackouts. Psychiatric/Behavioral: - Negative for loud snoring and stopping breathing, choking, or gasping while asleep. The following systems were negative: Constitutional, Skin, Eyes, ENT, Genitourinary, Hematologic, Musculoskeletal, Neurological, Psychiatric MEDICATIONS Current Outpatient Medications Medication Sig acetaminophen (TYLENOL) 500 mg capsule Take 1,000 mg by mouth 2 (two) times a day. artificial tears with lanolin (REFRESH P.M.) ophthalmic ointment Apply 0.5 inches to left eye at bedtime. aspirin [address] tablet Take 81 mg by mouth daily. metoprolol tartrate (LOPRESSOR) 50 mg tablet Take 0.5 tablets (25 mg total) by mouth 2 (two) times a day. olopatadine (PATADAY) 0.2 % ophthalmic solution 1 drop at bedtime. omeprazole (PriLOSEC) [address] capsule Take 20 mg by mouth daily. triamcinolone (for_KENALOG) 0.1 % cream Apply 1 application topically as needed (bug bites). amoxicillin (AMOXIL) 500 mg capsule TAKE FOUR CAPSULES BY MOUTH 30-60 MINUTES BEFORE APPOINTMENT ezetimibe (ZETIA) 10 mg tablet Take 1 tablet (10 mg total) by mouth daily. furosemide (LASIX) 40 mg tablet Take 40 mg by mouth daily as needed. rosuvastatin (CRESTOR) 40 mg tablet Take 1 tablet (40 mg total) by mouth daily. Medication changes today: New Medications Ordered This Visit Medications ezetimibe (ZETIA) 10 mg tablet Sig: Take 1 tablet (10 mg total) by mouth daily. Dispense: 90 tablet Refill: 3 Medications Discontinued During This Encounter Medication Reason polyethylene glycol (MIRALAX) 17 gram/dose oral powder Therapy completed hydrOXYzine (ATARAX) 25 mg tablet Therapy completed OBJECTIVE Vitals: 09/06/22 0819 09/06/22 0821 09/06/22 0851 BP: 103/64 93/64 115/78 BP Location: Left arm Left arm Right arm Patient Position: Sitting Sitting Sitting Cuff Size: Large Large Regular Pulse: 63 74 SpO2: 98% Weight: 123 kg Height: 182.7 cm Body mass index is 36.79 kg/m??. PHYSICAL EXAMINATION General: Patient in no [...] DIAGNOSTICS Lab Results Component Value Date NA 137 08/23/2022 KPLASMA 5.2 08/23/2022 CL 103 08/23/2022 BICARB 26 08/23/2022 CREATININE 1.15 08/23/2022 CREATPOC 1.1 08/15/2020 EGFR 67 08/23/2022 BUN 26 (H) 08/23/2022 ANIONGAP 8 08/23/2022 GLUCOSE 95 08/23/2022 GLUCOSEPOC 129 12/31/2020 CALCIUM 9.3 08/23/2022 MG 2.2 09/06/2021 Lab Results Component Value Date WBC 6.0 08/23/2022 HGB 12.7 (L) 08/23/2022 HCT 39.9 08/23/2022 MCV 93.2 08/23/2022 PLT 176 08/23/2022 Lab Results Component Value Date CHOL 161 08/23/2022 CHOL 145 09/06/2021 CHOL 143 03/01/2021 Lab Results Component Value Date HDL 52 08/23/2022 HDL 48 09/06/2021 HDL 44 03/01/2021 Lab Results Component Value Date LDLCALC 92 08/23/2022 LDLCALC 77 09/06/2021 LDLCALC 73 03/01/2021 APOB 90 08/23/2022 LIPA 699 (H) 08/23/2022 Lab Results Component Value Date TRIG 91 08/23/2022 TRIG 102 09/06/2021 TRIG 131 03/01/2021 ECG August 23, 2022 reviewed: Sinus bradycardia. [...] with endocarditis prophylaxis before appropriate dentalprocedures indefinitely. Will recheck echocardiogram prior to follow-up in 1 year. #2 CAD s/p CABG x 1 with COLON to LAD 12/28/2020 Patient doing well. No symptoms of angina. Preserved ejection fraction with no symptoms of heart failure or angina. #4 Borderline left ventricular enlargement LVEF 50-55 % Recent echocardiogram revealed decreased LV size. Will recheck echocardiogram prior to follow-up in1 year. 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 Will continue low-dose metoprolol. Plan to recheck Holter in 12-18 months. 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 Upper limits of normal for patient age and BSA 45 mm. Upon my reviewof echocardiogram sinus of Valsalva diameter 43 mm #7 Hyperlipidemia Mixed with elevated lipoprotein a (699) LDL above desired goal. Will add Zetia 10 mg to current dose of rosuvastatin 40 mg and recheck lipid profile and ApoB in 3 months. LDL not at goal at 55 mg/dL or less will have patient switch to atorvastatin 80 mg in conjunction with the Zetia 10 mg and recheck lipid profile and ApoB prior to follow-up in 6 months. If patient still not at goal will refer to hyperlipidemia Clinic for considerationof PCSK9 inhibitor #8 Mild obstructive sleep apnea. Patient without symptoms. Patient chose not to proceed with trial of CPAP therapy. #9 Intermittent nonexertional left-sided chest discomfort likely musculoskeletal, resolved #10 Erectile dysfunction Patient using Viagra p.r.n.. Aware that this medication cannot be used in conjunction with nitrate containing medications such as sublingual nitroglycerin. #11 Anemia, etiology unclear Patient with mild anemia. No evidence of iron deficiency. Will check B12, folate, LDL and haptoglobin prior to follow-up in 6 months. Will also recheck ferritin. #12 Ventral hernia Patient seen by surgery recommended weight loss with BMI less than 30 prior to repair. PLAN 1. Given known coronary artery disease and elevated lipoprotein a will try to achieve goal LDL of 55 mg/dL or less. Will continue patient on the atorvastatin 40 mg. Will add Zetia/ezetimibe 10 mg daily. Prescription was sent to [facility] in [place]. 2. Will recheck fasting lipid profile and [...] would recommend aggressive lowering of LDL cholesterol. documented in this encounter Plan of Treatment Upcoming Encounters Date Type Department Care Team (Late st Contact Info) Description 06/21/2023 8:30 AM SOCIAL WORK COORDINATOR Ancillary Procedure Department of Ophthalmology in [place], [place] [address] [place] [address] Alanis Barker O.D. [address] [place] [phone] (Work) 06/21/2023 9:00 AM SOCIAL WORK COORDINATOR Comprehensive Visit Department of Ophthalmology in [place], [place] [address] [place] [phone] Brigid Hernandez M.D. [address] [place] [phone] 07/17/2023 12:30 PM SOCIAL WORK COORDINATOR Infusion Department of Infusion Therapy in [place], [place] [address] [place] [phone] Kamryn Alvarado APRN, C.N.P. [address] [place] [phone] 09/04/2023 7:00 AM CDT Appointment Department of Laboratory Medicine in [place], [place] [address] [phone] Wellington Valdivia M.D. [address] [place] [phone] Scheduled Referrals Name Type Priority Associated Diagnoses Order Schedule Cardiovascular Disease office visit (clinic) Outpatient Referral Routine Replacement Aortic Valve Tissue Coronary Artery 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 Pectoris Cardiomyopathy (HCC) Ectopy Ventricular Hyperlipidemia Mixed Pain Chest Atypical Drug Induced Erectile Dysfunction Apnea Sleep Obstructive Hernia Ventral Elevated Lipoprotein A Anemia Iron Deficiency Thoracic Aortic Aneurysm Without Rupture Unspecified (HCC) Expected: 03/08/2023 (Approximate), Expires: 12/07/2023 documented as of this encounter Results * (ABNORMAL) Basic Metabolic Panel (05/06/2023 9:22 AM SOCIAL WORK COORDINATOR) Potassium, P 5.3(H) 3.6 - 5.2 mmol/L 05/06/2023 9:53 AM SOCIAL WORK COORDINATOR AUST Sodium, P 141 135 - 145 mmol/L 05/06/2023 9:53 AM SOCIAL WORK COORDINATOR AUST Chloride, P 105 98 - 107 mmol/L 05/06/2023 9:53 AM SOCIAL WORK COORDINATOR AUST Bicarbonate, P 29 22 - 29 mmol/L 05/06/2023 9:53 AM SOCIAL WORK COORDINATOR AUST Anion Gap, P 7 7 - 15 05/06/2023 9:53 AM SOCIAL WORK COORDINATOR AUST BUN (Blood Urea Nitrogen), P 17 8 - 24 mg/dL 05/06/2023 9:53 AM SOCIAL WORK COORDINATOR AUST Creatinine 1.14 0.74 - 1.35 mg/dL 05/06/2023 9:53 AM SOCIAL WORK COORDINATOR AUST Estimated GFR (eGFR) 67 >=60 mL/min/BSA 05/06/2023 9:53 AM SOCIAL WORK COORDINATOR AUST Comment: Estimated GFR calculated using the 2020 CKD_EPI creatinine equation. Calcium, Total, P 9.4 8.8 - 10.2 mg/dL 05/06/2023 9:53 AM SOCIAL WORK COORDINATOR AUST Glucose, P 110 70 - 140 mg/dL 05/06/2023 9:53 AM SOCIAL WORK COORDINATOR AUST Blood (Blood, Venous) 05/06/2023 9:22 AM SOCIAL WORK COORDINATOR 05/06/2023 9:24 AM SOCIAL WORK COORDINATOR Wellington Valdivia M.D. LAB BLOOD ADD-ON [facility] [address] [place] [address], [facility] - [facility] [address] [place] [address] * Lipid Panel (05/06/2023 9:22 AM SOCIAL WORK COORDINATOR) Triglycerides 114 mg/dL 05/06/2023 9:53 AM SOCIAL WORK COORDINATOR AUST Comment: ----REFERENCE VALUE---- Normal: <150 mg/dL Borderline High: 150-199 mg/dL High: 200-499 mg/dL Very High: > or =500 mg/dL Cholesterol, Total 113 mg/dL 2022 9:53 AM SOCIAL WORK COORDINATOR AUST Comment: ----REFERENCE VALUE---- Desirable: < 200 mg/dL Borderline High: 200 - 239 mg/dL High: > or = 240 mg/dL Cholesterol, LDL, Calculated 39 mg/dL 05/06/2023 9:53 AM SOCIAL WORK COORDINATOR AUST Comment: ----REFERENCE VALUE---- Desirable: <100 mg/dL Above Desirable: 100-129 mg/dL Borderline High: 130-159 mg/dL High: 160-189 mg/dL Very High: >=190 mg/dL ----ADDITIONAL INFORMATION---- LDL cholesterol calculated using the Stacy/NIH equation. Cholesterol, HDL 53 >=40 mg/dL 05/06/20 9:53 AM SOCIAL WORK COORDINATOR AUST Cholesterol, Non-HDL, Calculated 60 mg/dL 05/06/2023 9:53 AM SOCIAL WORK COORDINATOR AUST Comment: ----REFERENCE VALUE---- Desirable: <130 mg/dL Above Desirable: 130-159 mg/dL Borderline High: 160-189 mg/dL High: 190-219 mg/dL Very High: > or =220 mg/dL Fasting (8 HR or more) y 05/06/2023 9:24 AM SOCIAL WORK COORDINATOR AUST Blood (Blood, Venous) 05/06/2023 9:22 AM SOCIAL WORK COORDINATOR 05/06/2023 9:24 AM SOCIAL WORK COORDINATOR Wellington Valdivia M.D. LAB BLOOD ADD-ON Performing Organization Address City/[facility]/ZIP Co de Phone Number [facility] [address] [address] * Thyroid Function [place] (05/06/2023 9:21 AM SOCIAL WORK COORDINATOR) TSH, Sensitive 2.6 0.3 - 4.2 mIU/L 05/06/2023 10:47 AM SOCIAL WORK COORDINATOR [place]UST Blood (Blood, Venous) 05/06/2023 9:21 AM SOCIAL WORK COORDINATOR 05/06/2023 9:24 AM SOCIAL WORK COORDINATOR Wellington Valdivia M.D. LAB BLOOD ADD-ON Performing Organization Address City/[facility]/ZIP Co de Phone Number [facility] [address] [place] [address] * (ABNORMAL) LD (Lactate Dehydrogenase) (05/06/2023 9:21 AM SOCIAL WORK COORDINATOR) Pathologist [facility] Lactate Dehydrogenase (LD), P 250(H) 122 - 222 U/L 05/06/2023 9:50 AM SOCIAL WORK COORDINATOR AUST Blood (Blood, Venous) 05/06/2023 9:21 AM SOCIAL WORK COORDINATOR 05/06/2023 9:24 AM SOCIAL WORK COORDINATOR Wellington Valdivia M.D. LAB BLOOD NON ADD -ON Performing Organization Address [facility]/ZIP Co de Phone Number [facility] [address] [place] [address], [facility] AUST [place] [facility] [address] [place] [address] * Haptoglobin (05/06/2023 9:21 AM SOCIAL WORK COORDINATOR) Pathologist [facility] Haptoglobin, S 143 30 - 200 mg/dL 05/06/2023 2:43 PM SOCIAL WORK COORDINATOR [facility] Blood (Blood, Venous) 05/06/2023 9:21 AM SOCIAL WORK COORDINATOR 05/06/2023 2:13 PM SOCIAL WORK COORDINATOR Wellington Valdivia M.D. LAB BLOOD ADD-ON Performing Organization Address [facility] de Phone Number [facility] [address] [place] [address], [facility] [place] [address] [place] [address] * Folate (05/06/2023 9:21 AM SOCIAL WORK COORDINATOR) Pathologist [facility] Folate, S 12.1 >=4.0 mcg/L 05/06/2023 10:47 AM SOCIAL WORK COORDINATOR AUST Comment: Biotin has been identified by the residential treatment specialist as a potential interfering substance. Higher concentrations of biotin may be found in multivitamins, hair/nail supplements, and workout supplements. If the result does not match clinical observations, repeat testing after patient refrains from the use of supplements for at least 12 hours. Blood (Blood, Venous) 05/06/2023 9:21 AM SOCIAL WORK COORDINATOR 05/06/2023 9:24 AM SOCIAL WORK COORDINATOR Wellington Valdivia M.D. LAB BLOOD ADD-ON Performing Organization Address City/[facility] Co de Phone Number [facility] [address] [place] [address], [facility] - [address] [address] * Vitamin B12 Assay (05/06/2023 9:21 AM SOCIAL WORK COORDINATOR) Vitamin B12 Assay, S 432 232 - 1245 ng/L 05/06/2023 10:47 AM SOCIAL WORK COORDINATOR AUST Comment: Biotin has been identified by the residential treatment specialist as a potential interfering substance. Higher concentrations of biotin may be found in multivitamins, hair/nail supplements, and workout supplements. If the result does not match clinical observations, repeat testing after patient refrains from the use of supplements for at least 12 hours. Blood (Blood, Venous) 05/06/2023 9:21 AM SOCIAL WORK COORDINATOR 05/06/2023 9:24 AM SOCIAL WORK COORDINATOR Wellington Valdivia M.D. LAB BLOOD ADD-ON Performing Organization Address [facility] Co de Phone Number [facility] [address] [place] [address], [facility] - [address] [address] * Ferritin (05/06/2023 9:21 AM SOCIAL WORK COORDINATOR) Ferritin, S 36 31 - 409 mcg/L 05/06/2023 10:47 AM SOCIAL WORK COORDINATOR AUST Comment: Biotin has been identified by the residential treatment specialist as a potential interfering substance. Higher concentrations of biotin may be found in multivitamins, hair/nail supplements, and workout supplements. If the result does not match clinical observations, repeat testing after patient refrains from the use of supplements for at least 12 hours. Blood (Blood, Venous) 05/06/2023 9:21 AM SOCIAL WORK COORDINATOR 05/06/2023 9:24 AM SOCIAL WORK COORDINATOR Wellington Valdivia M.D. LAB BLOOD ADD-ON Performing Organization Address City/[facility] Co de Phone Number [facility] [address] [place] [address], [facility] [address] [address] * CBC without Differential (05/06/2023 9:21 AM SOCIAL WORK COORDINATOR) Pathologist [facility] Hemoglobin 13.2 13.2 - 16.6 g/dL 05/06/2023 9:29 AM SOCIAL WORK COORDINATOR AUST Hematocrit 41.7 38.3 - 48.6 % 05/06/2023 9:29 AM SOCIAL WORK COORDINATOR AUST Erythrocytes 4.40 4.35 - 5.65 x10(12)/L 05/06/2023 9:29 AM SOCIAL WORK COORDINATOR [facility] MCV 94.8 78.2 - 97.9 fL 05/06/2023 9:29 AM SOCIAL WORK COORDINATOR AUST RBC Distrib Width 12.2 11.8 - 14.5 % 05/06/2023 9:29 AM SOCIAL WORK COORDINATOR AUST Platelet Count 158 135 - 317 x10(9)/L 05/06/2023 9:29 AM SOCIAL WORK COORDINATOR AUST Leukocytes 5.4 3.4 - 9.6 x10(9)/L 05/06/2023 9:29 AM SOCIAL WORK COORDINATOR [facility]UST Blood (Blood, Venous) 05/06/2023 9:21 AM SOCIAL WORK COORDINATOR 05/06/2023 9:24 AM SOCIAL WORK COORDINATOR Wellington Valdivia M.D. LAB BLOOD ADD-ON [facility] [address] [place] [address], [facility] - [address] [address] * Apolipoprotein B (05/06/2023 9:21 AM SOCIAL WORK COORDINATOR) Pathologist [facility] Apolipoprotein B, S 60 mg/dL 05/07 12:25 PM SOCIAL WORK COORDINATOR DTL Comment: ----REFERENCE VALUE---- Desirable: <90 Above Desirable: 90-99 Borderline high: 100-119 High: 120-139 Very high: > or = 140 Blood (Blood, Venous) 05/06/2023 9:21 AM SOCIAL WORK COORDINATOR 05/07/2023 7:49 AM SOCIAL WORK COORDINATOR Wellington Valdivia M.D. LAB BLOOD NON ADD -ON [facility] [address] [place] [address], [place] DTL [facility] [address] [place] [address] * Lipid Panel (12/12/2022 9:41 AM CDT) [...] M.D. LAB BLOOD ADD-ON Performing Organization Address [facility] Co de Phone Number [facility] [address] [place] [address], [facility] AUST [facility] [address] [place] [address] * Apolipoprotein B (12/12/2022 9:41 AM CDT) Apolipoprotein B, S 82 mg/dL 12/13 10:23 AM CDT DTL Comment: ----REFERENCE VALUE---- Desirable: <90 Above Desirable: 90-99 Borderline high: 100-119 High: 120-139 Very high: > or = 140 Blood (Blood, Venous) 12/12/2022 9:41 AM CDT 12/13/2022 7:57 AM CDT Wellington Valdivia M.D. LAB BLOOD NON ADD -ON Performing Organization Address [facility] Co de Phone Number [facility] [address] [place] [address], [facility] [address] [place] [address] documented in this encounter Visit Diagnoses Diagnosis Replacement Aortic Valve Tissue- Primary Coronary Artery 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 Pectoris Cardiomyopathy (HCC) Ectopy Ventricular Hyperlipidemia Mixed Thoracic Aortic Aneurysm Without Rupture Unspecified (HCC) Elevated Lipoprotein A Pain Chest Atypical Drug Induced Erectile Dysfunction Apnea Sleep Obstructive Hernia Ventral Anemia Iron Deficiency documented in this encounter Additional Health Concerns Assessment Noted Time PHQ-9 Depression Total Score: 0 04/09/20 9:36 AM SOCIAL WORK COORDINATOR documented as of this encounter Care Teams Concrete Vibrator Operator Relationship Specialty Start Date End Date Cooper Jolly M.B.B.S., MHanna. [address] [place] [phone] PCP - General Internal Medicine 02/05/22 documented as of this encounter
--- OUTSIDE RECORDS SUMMARY | 2023-06-19 09:29 | XMS_ITS | Encounter Summary ---
Author Name Unknown Organization [facility] Address [address] [place] [address] Care Team Providers Care Detective Chief Name Role Phone Cooper Jolly M.D. Primary Care Provid er Reason for Visit * Reason Comments Hyperlipidemia * Outpatient (Routine) - Closed Specialty Diagnoses / Procedures Referred By Contac t Referred To Contact Cardiovascular Diseases / Cardiovascular Disease Diagnoses Coronary Artery 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 Pectoris Hyperlipidemia Mixed Elevated Lipoprotein A Wellington Valdivia M.D. [address] [phone] [facility] Region Referral ID Status Reason Start Date Expiration Date Visits Re quested Visits Authorized [id number] Closed 12/13/2022 12/13/2023 1 1 Encounter Details Date Type Department Care Team (Latest Contact Info) Description 02/07/2023 1:15 PM CDT Comprehensive Visit Department of Cardiovascular Diseases in [place], [place] [address] [phone] Kamryn Alvarado, CARVER AND CHECKERER SPECIALS, C.N.P. [address] [phone] Coronary Artery 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 Pectoris (Primary Dx); Hyperlipidemia Mixed; Elevated Lipoprotein A Discharge Disposition: Home or Self Care Social [...] any clubs o r organizations such as methodist groups, unions, fraternal or athletic groups, or [...] Answer Date Recorded PHQ-2 Score 0 04/09/2022 [facility] [place] of Occupat ional [facility] - Occupational Stress Questionnaire Answer Date [...] your living situation today? [facility] 02/03/2023 Education Answer Date Recorded What is the highest level of school you have completed or the highest degree you have received? Associate degree: occupational, technical, or vocational program 11/30/2020 Sex and Gender Information Value Date Recorded Sex Assigned at Male 04/29/2021 7:37 PM HOST AND HOSTESS Gender Identity Male 10/01/2020 9:14 PM CDT Sexual Orientation Straight 10/01/2020 9: 14 PM CDT documented as of this encounter Last Filed Vital Signs Vital Sign Reading Time Taken Comments Blood Pressure 105/68 02/07/2023 1:05 PM CDT Pulse 71 02/07/2023 1:05 PM CDT Temperature - - Respiratory Rate - - Oxygen Saturation 97% 02/07/2023 1:05 PM CDT Inhaled Oxygen Concentration - - Weight 124 kg (273 lb 13 oz) 02/07/2023 1:05 PM CDT Height - - Body Mass Index 37.21 09/06/2022 8:19 AM CDT documented in this encounter Patient Instructions * Patient Instructions* Kamryn Alvarado APRN, C.N.P. - 02/07/2023 1:15 PM CDT Will seek approval for Inclisiran (Leqvio) If this is approved, we can try Repatha (evolocumab) The cardiovascular risk marker called Lipoprotein A was elevated. There is not currently a drug to target this. Recommend your LDL cholesterol goal be around 55 or less. documented in this encounter Consult Notes * Kamryn Alvarado APRN, C.N.P. - 02/07/2023 1:15 PM CDT CHIEF COMPLAINT/REASON FOR VISIT Chief Complaint Patient presents with Hyperlipidemia HISTORY OF PRESENT ILLNESS Damien Aguirre is a very pleasant 73 y.o. male who presents to [facility] Cardiology Department as a referral for lipid management. 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 Srinivasan is on rosuvastatin 40 mg daily and ezetimibe 10 mg daily. He is tolerating this regimen quitewell but his LDL is not at goal based on current a aha and ACC guidelines. He is not having any problems with any chest pain or pressure other than when he lies down at night he will feel some discomfort on his left side. This does not occur during the day. He has had no exertional symptoms. He is not experiencing any dizziness, syncope or presyncope. He does have chronic lower extremity edema. SYSTEMS REVIEW Cardiovascular: Positive for chest pain, pressure or tightness (Only when lying down at night) and swelling in the legs or feet. - Negative for rapid or fluttering heart beat and shortness of breath when lying flat. Neurological: - Negative for light-headedness. PAST MEDICAL/SURGICAL HISTORY Past Medical History: Diagnosis Date Anemia Posthemorrhagic Acute (Blood Loss Anemia) 01/01/2021 Apnea Sleep Obstructive 11/2016 Mild obstructive sleep apnea syndrome Beat Premature Ventricular 07/10/2017 Cardiomyopathy (HCC) 09/02/2015 Cardiomyopathy, mild LVE with preserved ejection fraction Carotid Artery Disease 09/02/2015 Carotid Artery Disease (mild); asymptomatic Cataract Conjunctivitis Chronic Allergic Re-occuring Coronary Artery Disease (Unspecified) Dermatochalasis Left Dermatochalasis Right Dilatation Ascending Aorta (HCC) 09/02/2015 Dilatation Ascending Aorta, (diameter 42 mm at mid level) Dry Eye Syndrome Bilateral Ectopy Ventricular 07/10/2017 Gastroesophageal Reflux Disease NOS 08/07/2013 Hyperlipidemia Mixed 02/03/2018 Polyp Colon Regurgitation Aortic Rheumatic 02/03/2018 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 Stenosis Carotid Artery Bilateral 09/02/2015 Carotid Artery Disease (mild); asymptomatic Past Surgical History: Procedure Laterality Date CABG X 1 - AMANDA N/A 12/28/2020 Procedure: CORONARY ARTERY BYPASS GRAFT X1 INTERNAL MAMMARY ARTERY.; Surgeon: Ian Love M.D.; Location: [facility] OR CATARACT EXTRACTION Right 05/30/2000 CATARACT EXTRACTION, BILATERAL 1998 CATH ANGIOGRAM N/A 12/13/2020 Procedure: CORONARY ANGIOGRAPHY; Surgeon: Vinh Queen M.D.; Location: [facility] CCL COLONOSCOPY N/A 02/06/2018 Procedure: COLONOSCOPY; Surgeon: Leroy Mohan M.D.; Location: [facility] GI LAB COLONOSCOPY N/A 06/06/2022 Procedure: COLONOSCOPY-a; Surgeon: Kedar Hammer M.D.; Location: [facility] GI LAB ENDOSCOPIC DESTRUCTION OF LESION OF LARGE INTESTINE N/A 02/15/2006 Endoscopic Destruction of Other Lesion or Tissue of Large Intestine ENDOSCOPIC POLYPECTOMY OF LARGE INTESTINE N/A 02/15/2006 Endoscopic Polypectomy of Large Intestine ENDOSCOPIC POLYPECTOMY OF LARGE INTESTINE N/A 01/13/2010 Endoscopic Polypectomy of Large Intestine OTHER SURGICAL HISTORY N/A 02/15/2006 Colonoscopy, flexible, proximal to splenic flexure; with ablation of tumor(s), polyp(s), or other lesion(s) not amenable to removal by hot biopsy forceps, bipolar cautery or snare technique.. REPLACEMENT AORTIC VALVE N/A 12/28/2020 Procedure: REPLACEMENT AORTIC VALVE, Magna Ease. Reduction aortoplasty; Surgeon: Ian Love M.D.; Location: [facility] OR CURRENT MEDICATIONS Current Outpatient Medications Medication Sig acetaminophen [...] mouth daily as needed. metoprolol tartrate (LOPRESSOR) 50 mg tablet Take 0.5 tablets (25 mg total) by mouth 2 (two) times a day. olopatadine (PATADAY) 0.2 % ophthalmic solution 1 drop at bedtime. omeprazole (PriLOSEC) [address] capsule Take 20 mg by mouth daily. rosuvastatin (CRESTOR) 40 mg tablet Take 1 tablet (40 mg total) by mouth daily. triamcinolone (for_KENALOG) 0.1 % cream Apply 1 application topically as needed (bug bites). amoxicillin (AMOXIL) 500 mg capsule TAKE FOUR CAPSULES BY MOUTH 30-60 MINUTES BEFORE APPOINTMENT ALLERGIES Allergies Allergen Reactions Atorvastatin Myalgia Muscle cramps Latex Rash Sulfa (Sulfonamide Antibiotics) Other (see comments) Mouth gets raw Polytrim [Polymyxin B Sulf-Trimethoprim] Edema (Reselect Reaction) Pt used for eye - unsure if sx worsened with use b/c pt already had sx of severe itching and redness SOCIAL HISTORY Social History Tobacco Use Smoking status: Former Packs/day: 1.00 Years: 10.00 Pack years: 10.00 Types: Cigarettes Quit date: 1976 Years since quittin.7 Passive exposure: Past Smokeless tobacco: Never Vaping Use Vaping Use: never used Substance Use Topics Alcohol use: Not Currently Alcohol/week: 2.0 standard drinks of alcohol Types: 1 Cans of beer, 1 Shots of liquor per week Comment: largely abstinent since 2016 Drug use: No FAMILY HISTORY Family History Problem Relation Age of Onset Macular degeneration Mother Leukemia Mother Kidney cancer Father Coronary artery bypass graft Father 60 Lymphoma Sister Lupus Sister Lung cancer Sister Macular degeneration Brother Hypertension Brother Hyperlipidemia Brother Connective Tissue Disease Daughter Diabetes mellitus type I Son RA - Rheumatoid arthritis Son VITAL SIGNS BP 105/68 (BP Location: Left arm) Pulse 71 Wt 124 kg SpO2 97% BMI 37.21 kg/m?? PHYSICAL EXAM Vitals and nursing note reviewed. Constitutional Appearance: Normal appearance. Eyes General: No scleral icterus. Conjunctiva/sclera: Conjunctivae normal. Cardiovascular Rate and Rhythm: Normal rate and regular rhythm. Heart sounds: Normal heart sounds. No murmur. No friction rub. No gallop. Pulmonary Effort: Pulmonary effort is normal. Breath sounds: Normal breath sounds. No wheezing or rales. Musculoskeletal General: Normal range of motion. Cervical back: Neck supple. Neurological General: No focal deficit present. Mental Status: He is alert and oriented to person, place, and time. Psychiatric Behavior: Behavior normal. DIAGNOSTICS Lab Results Component Value Date WBC 6.0 08/23/2022 HGB 12.7 (L) 08/23/2022 HCT 39.9 08/23/2022 MCV 93.2 08/23/2022 PLT 176 08/23/2022 Lab Results Component Value Date NA 137 08/23/2022 CL 103 08/23/2022 CREATININE 1.15 08/23/2022 EGFR 67 08/23/2022 BUN 26 (H) 08/23/2022 ANIONGAP 8 08/23/2022 GLUCOSE 95 08/23/2022 CALCIUM 9.3 08/23/2022 Lab Results Component Value Date CHOL 138 12/12/2022 Lab Results Component Value Date HDL 47 12/12/2022 Lab Results Component Value Date LDLCALC 69 12/12/2022 Lab Results Component Value Date TRIG 125 12/12/2022 Lab Results Component Value Date TTLCHOLHDLRT 4 09/03/2016 ASSESSMENT / PLAN #1 Coronary Artery Disease status post COLON to the LAD December 28, 2020 #2 Hyperlipidemia Mixed We discussed the role of PCSK9 inhibitor versus Inclisiran for management of LDL. He would prefer not to do injections himself. I put through a prescription for Inclisiran. If [facility] not appro[facility] will seek approval for Repatha. #3 Elevated Lipoprotein A Target LDL 55 or less. We discussed that there is currently a drug being developed target lipoprotein A but at this point we do not know when this will be available. In the meantime will work on getting his LDL cholesterol below 55 as outlined above. #4 Atypical chest pain Occurring only when lying supine. Would advise moving omeprazole to the evening. If he has breakthrough heartburn symptoms during the day would have him take 20 mg of omeprazole twice a day. #5 Rheumatic aortic valve stenosis and regurgitation status post aortic valve replacement with a 29mm Amber-Felipe [place] Magna/magna ease prosthetic aortic valve 12/28/2020 Continue with endocarditis prophylaxis prior to dental procedures. documented in this encounter Plan of Treatment Upcoming Encounters Date Type Department Care Team (Late st Contact Info) Description 06/21/2023 8:30 AM HOST AND HOSTESS Ancillary Procedure Department of Ophthalmology in [place], [place] [address] [place] [address] Alanis Barker O.D. [address] [place] [phone] (Work) 06/21/2023 9:00 AM HOST AND HOSTESS Comprehensive Visit Department of Ophthalmology in [place], [place] [address] [place] [phone] Brigid Hernandez M.D. [address] [place] [address] 07/17/2023 12:30 PM HOST AND HOSTESS Infusion Department of Infusion Therapy in [place], [place] [address] [phone] Kamryn Alvarado, KIMANI, C.N.P. [address] [phone] 09/04/2023 7:00 AM CDT Appointment Department of Laboratory Medicine in [place], [place] [address] [phone] Wellington Valdivia M.D. [address] [phone] documented as of this encounter Visit Diagnoses Diagnosis Coronary Artery 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 Pectoris- Primary Hyperlipidemia Mixed Elevated Lipoprotein A documented in this encounter Additional Health Concerns Assessment Noted Time PHQ-9 Depression Total Score: 0 04/09/20 22 9:36 AM HOST AND HOSTESS documented as of this encounter Care Teams Detective Chief Relationship Specialty Start Date End Date Cooper Jolly M.B.B.SDionna, MHanna. [address] [phone] PCP - General Internal Medicine 02/05/22 documented as of this encounter
--- OUTSIDE RECORDS SUMMARY | 2023-06-19 09:29 | XMS_ITS | Encounter Summary ---
Author Name Unknown Organization [facility] Address [address] [place] [address] Care Team Providers Care Dispatcher Bus And Trolley Name Role Phone Cooper Jolly M.D. Primary Care Provid er Reason for Referral * Outpatient (Routine) - Closed Specialty Diagnoses / Procedures Referred By Swetha malagon Referred To Contact Diagnoses Ectopy Ventricular Procedures ECG 12 Lead Wellington Valdivia M.D. [address] [place] [address] [facility] Region Referral ID Status Reason Start Date Expiration Date Visits Re quested Visits Authorized [id number] Closed 09/07/2021 09/07/2022 1 1 Reason for Visit * Outpatient (Routine) - Closed Specialty Diagnoses / Procedures Referred By Swetha malagon Referred To Contact Diagnoses Ectopy Ventricular Procedures ECG 12 Lead Wellington Valdivia M.D. [address] [place] [address] [facility] Region Referral ID Status Reason Start Date Expiration Date Visits Re quested Visits Authorized [id number] Closed 09/07/2021 09/07/2022 1 1 Encounter Details Date Type Department Care Team (Latest Contact Info) Description 08/23/2022 11:25 AM CDT - 08/23/2022 12:30 PM CDT Hospital Encounter Department of Laboratory Medicine in [place], [place] [address] [phone] Wellington Valdivia M.D. [address] [phone] Ectopy Ventricular Discharge Disposition: Home or Self Care Social [...] often do you attend chur ch or faith services? More than 4 times per year 04/09/2022 Do you belong to any clubs o r organizations such as restorationism groups, unions, fraternal or athletic groups, or [...] Answer Date Recorded PHQ-2 Score 0 04/09/2022 [facility] [place] of Occupat ional Health - Occupational Stress [...] place to sleep or slept in a snf (including now)? No 04/09/2022 Depression Answer Date [...] Sex Assigned at Male 04/29/2021 7:37 PM TEACHER DANCING Gender Identity Male 10/01/2020 9:14 PM CDT [...] BEFORE APPOINTMENT 12 capsule 0 06/12/2022 04/24/2023 hydrOXYzine (ATARAX) 25 mg tablet Take 1 tablet (25 mg total) by mouth every 6 (six) hours as needed for itching. 30 tablet 0 01/21/2022 09/06/2022 metoprolol tartrate (LOPRESSOR) 50 mg tablet Take 0.5 tablets (25 mg total) by mouth 2 (two) times a day. 90 tablet 3 04/17/2021 04/24/2023 omeprazole (PriLOSEC) [address] capsule Take 20 mg by mouth daily. 0 03/14/2012 04/24/2023 polyethylene glycol (MIRALAX) 17 gram/dose oral powder Drink 1st portion of prep at 6 PM the evening before. 2nd portion must be started 4 hours before and finished 2 hours prior to report time 238 g 0 04/09/2022 09/06/2022 rosuvastatin (CRESTOR) 40 mg tablet Take 1 tablet (40 mg total) by mouth daily. 90 tablet 3 12/05/2020 04/24/2023 documented as of this encounter Plan of Treatment Upcoming Encounters Date Type Department Care Team (Late st Contact Info) Description 06/21/2023 8:30 AM TEACHER DANCING Ancillary Procedure Department of Ophthalmology in [place], [place] [address] [place] [address] Alanis Barker O.D. [address] [phone] (Work) 06/21/2023 9:00 AM TEACHER DANCING Comprehensive Visit Department of Ophthalmology in [place], [place] [address] [place] [address] Brigid Hernandez M.D. [address] [place] [address] 07/17/2023 12:30 PM TEACHER DANCING Infusion Department of Infusion Therapy in [place], [place] [address] [phone] Kamryn Alvarado APRN, C.N.P. [address] [phone] 09/04/2023 7:00 AM CDT Appointment Department of Laboratory Medicine in [place], [place] [address] [phone] Wellington Valdivia M.D. [address] [phone] documented as of this encounter Procedures Procedure Name Priority Date/Time Associated Diagnosis Comments ECG Routine 08/23/2022 11:37 AM CDT Ectopy Ventricular documented in this encounter Results * ECG 12 Lead (08/23/2022 11:37 AM CDT) Ventricular Rate ECG/Min 49 BPM MUSE OH Interval 168 ms MUSE QRSD Interval 102 ms MUSE QT Interval 468 ms MUSE QTC Interval 422 ms MUSE P [place] 18 degrees MUSE R [place] -7 degrees MUSE T Wave [place] 20 degrees MUSE 08/23/2022 11:3 7 AM CDT 08/23/2022 11:44 AM CDT Impressions MUSE - 08/23/2022 11:44 AM CDT Marked sinus bradycardia Otherwise normal ECG When compared with ECG of 06-SEP-2021 09:15, No significant change was found Reviewed by CONSUELO Nieves Narrative Procedure Note Walter Chase M.D., Ph.D. - 08/23/2022 IMPRESSION: Marked sinus bradycardia Otherwise normal ECG When compared with ECG of 06-SEP-2021 09:15, No significant change was found Reviewed by CONSUELO Nieves Wellington Valdivia M.D. ECG ORDERABLES MUSE NA documented in this encounter Visit Diagnoses Diagnosis Ectopy Ventricular documented in this encounter Additional Health Concerns Assessment Noted Time PHQ-9 Depression Total Score: 0 04/09/20 22 9:36 AM TEACHER DANCING documented as of this encounter Care Teams Dispatcher Bus And Trolley Relationship Specialty Start Date End Date Cooper Jolly M.B.B.SDionna, MHanna. [address] [phone] PCP - General Internal Medicine 02/05/22 documented as of this encounter
--- OUTSIDE RECORDS SUMMARY | 2023-06-19 09:29 | XMS_ITS | Encounter Summary ---
Author Name Unknown Organization [facility] Address [address] [place] [address] Care Team Providers Care Construction Equipment Overhauler Name Role Phone Cooper Jolly M.D. Primary Care Provid er Reason for Referral * Outpatient (Routine) - Closed Specialty Diagnoses / Procedures Referred By Contac t Referred To Contact Cardiovascular Diseases / Cardiovascular Disease Diagnoses Coronary Artery 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 Pectoris Hyperlipidemia Mixed Elevated Lipoprotein A Wellington Valdivia M.D. [address] [place] [phone] [facility] Region Referral ID Status Reason Start Date Expiration Date Visits Re quested Visits Authorized [id number] Closed 12/13/2022 12/13/2023 1 1 Encounter Details Date Type Department Care Team (Late st Contact Info) Description 12/13/2022 Orders Only Department of Cardiovascular Diseases in [place], [place] [address] [place] [phone] Wellington Valdivia M.D. [address] [phone] Coronary Artery 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 Pectoris (Primary Dx); Hyperlipidemia Mixed; Elevated Lipoprotein A Social History Tobacco Use Types Packs/Day Years [...] How often do you attend [facility] or anabaptism services? More than 4 times per year 04/09/2022 Do you belong to any clubs o r organizations such as uatsdin groups, unions, fraternal or athletic groups, or [...] Answer Date Recorded PHQ-2 Score 0 04/09/2022 [facility] - Occupational Stress Questionnaire Answer Date [...] place to sleep or slept in a fci (including now)? No 04/09/2022 Depression Answer Date [...] Sex Assigned at Male 04/29/2021 7:37 PM COMMERCIAL LITIGATION PARALEGAL Gender Identity Male 10/01/2020 9:14 PM CDT Sexual Orientation Straight 10/01/2020 9: 14 PM CDT documented as of this encounter Plan of Treatment Upcoming Encounters Date Type Department Care Team (Late st Contact Info) Description 06/21/2023 8:30 AM COMMERCIAL LITIGATION PARALEGAL Ancillary Procedure Department of Ophthalmology in [place], [place] [address] [place] [address] Alanis Barker O.D. [address] [phone] (Work) 06/21/2023 9:00 AM COMMERCIAL LITIGATION PARALEGAL Comprehensive Visit Department of Ophthalmology in [place], [place] [address] [place] [phone] Brigid Hernandez M.D. [address] [place] [phone] 07/17/2023 12:30 PM COMMERCIAL LITIGATION PARALEGAL Infusion Department of Infusion Therapy in [place], [place] [address] [phone] Kamryn Alvarado, KIMANI, C.N.P. [address] [phone] 09/04/2023 7:00 AM CDT Appointment Department of Laboratory Medicine in [place], [place] [address] [phone] Wellington Valdivia M.D. [address] [phone] Scheduled Referrals Name Type Priority Associated Diagnoses Order Schedule Cardiovascular Disease - Lipid (cardiology) consult (clinic) Familial hypercholesterolemia Outpatient Referral Routine Coronary Artery 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 Pectoris Hyperlipidemia Mixed Elevated Lipoprotein A Expected: 12/13/2022 (Approximate), Expires: 03/15/2024 documented as of this encounter Visit Diagnoses Diagnosis Coronary Artery 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 Pectoris- Primary Hyperlipidemia Mixed Elevated Lipoprotein A documented in this encounter Additional Health Concerns Assessment Noted Time PHQ-9 Depression Total Score: 0 04/09/20 9:36 AM COMMERCIAL LITIGATION PARALEGAL documented as of this encounter Care Teams Construction Equipment Overhauler Relationship Specialty Start Date End Date Cooper Jolly M.B.B.S., MHanna. [address] [phone] PCP - General Internal Medicine 02/05/22 documented as of this encounter
--- OUTSIDE RECORDS SUMMARY | 2023-06-19 09:30 | XMS_ITS | Encounter Summary ---
Author Name Unknown Organization [facility] Address [address] [place] [address] Care Team Providers Care Handbag Operator Name Role Phone Cooper Jolly M.D. Primary Care Provid er Encounter Details Date Type Department Care Team (Latest Contact Info) Description 07/23/2022 Clinical Communication Department of Ophthalmology in [place], [place] [address] [place] [phone] Alanis Barker O.D. [address] [place] [phone] (Work) Social History Tobacco Use Types Packs/Day Years [...] How often do you attend chur or cheondoism services? More than 4 times per year 04/09/2022 Do you belong to any clubs o r organizations such as orthodoxy groups, unions, fraternal or athletic groups, or [...] Answer Date Recorded PHQ-2 Score 0 04/09/2022 [facility] of Occupat ional Health - Occupational Stress [...] place to sleep or slept in a usp (including now)? No 04/09/2022 Depression Answer Date [...] Sex Assigned at Male 04/29/2021 7:37 PM ACCOUNT SERVICES ANALYST Gender Identity Male 10/01/2020 9:14 PM CDT Sexual Orientation Straight 10/01/2020 9: 14 PM CDT documented as of this encounter Miscellaneous Notes * Telephone Encounter - Tesfaye Figueroa - 07/23/2022 12:42 PM ACCOUNT SERVICES ANALYST Patient reached out through portal message. He is thinking that he has recurring eye infection again. Just wondering what your thoughts are? If you want me to schedule first available?? UNT SERVICES ANALYST documented in this encounter Plan of Treatment Upcoming Encounters Date Type Department Care Team (Late st Contact Info) Description 06/21/2023 8:30 AM ACCOUNT SERVICES ANALYST Ancillary Procedure Department of Ophthalmology in [place], [place] [address] [place] [address] Alanis Barker O.D. [address] [place] [phone] (Work) 06/21/2023 9:00 AM ACCOUNT SERVICES ANALYST Comprehensive Visit Department of Ophthalmology in [place], [place] [address] [place] [address] Brigid Hernandez M.D. [address] [place] [address] 07/17/2023 12:30 PM ACCOUNT SERVICES ANALYST Infusion Department of Infusion Therapy in [place], [place] [address] [phone] Kamryn Alvarado, KIMANI, C.N.P. [address] [place] [phone] 09/04/2023 7:00 AM CDT Appointment Department of Laboratory Medicine in [place], [place] [address] [place] [phone] Wellington Valdivia M.D. [address] [place] [phone] documented as of this encounter Visit Diagnoses Not on filedocumented in this encounter Additional Health Concerns Assessment Noted Time PHQ-9 Depression Total Score: 0 04/09/20 22 9:36 AM ACCOUNT SERVICES ANALYST documented as of this encounter Care Teams Handbag Operator Relationship Specialty Start Date End Date JollyCooper naranjo M.B.B.S., M.Elidia. [address] [place], [place] [phone] PCP - General Internal Medicine 02/05/22 documented as of this encounter
--- OUTSIDE RECORDS SUMMARY | 2023-06-19 09:30 | XMS_ITS | Encounter Summary ---
Author Name Unknown Organization [facility] Address [address] [place] [address] Care Team Providers Care Barrel Header Name Role Phone Cooper Jolly M.D. Primary Care Provid er Encounter Details Date Type Department Care Team (Latest Contact Info) Description 07/10/2022 9:14 AM ELECTRICAL AND INSTRUMENT TECHNICIAN - 07/10/2022 11:[address] [facility] Hospital Encounter Department of Laboratory Medicine in [place], [place] [address] [place] [phone] Cooper Jolly M.B.B.S., MRakan [address] [place] [address] Anemia; Hyperkalemia Discharge Disposition: Home or Self Care Social [...] any clubs o r organizations such as catholic groups, unions, fraternal or athletic groups, or [...] Answer Date Recorded PHQ-2 Score 0 04/09/2022 [facility] of Occupat ional Health - Occupational Stress [...] place to sleep or slept in a residential (including now)? No 04/09/2022 Depression Answer Date [...] Sex Assigned at Male 04/29/2021 7:37 PM ELECTRICAL AND INSTRUMENT TECHNICIAN Gender Identity Male 10/01/2020 9:14 PM CDT Sexual Orientation Straight 10/01/2020 9: 14 PM CDT documented as of this encounter Medications at Time of Discharge Medication Sig Dispensed Refills Start Date End Date acetaminophen (TYLENOL) 500 mg capsule Take 1,000 mg by mouth 2 (two) times a day. [address] tablet Take 81 [...] report time 238 g 0 04/09/2022 09/06/2022 prednisoLONE acetate (PRED FORTE) 1 % ophthalmic suspension Administer 1 drop into the left eye 4 (four) times a day. Taper as directed by 10 mL 0 02/23/2022 07/27/2022 rosuvastatin (CRESTOR) 40 mg tablet Take 1 tablet (40 mg total) by mouth daily. 90 tablet 3 12/05/2020 04/24/2023 documented as of this encounter Miscellaneous Notes * Result Encounter Note - Genevieve Myers L.P.NDionna - 07/11/2022 3:23 PM ELECTRICAL AND INSTRUMENT TECHNICIAN Name of person contacted: Patient Relationship to patient: Not applicable Call back number: letter along with results mailed and sent to patient online portal. 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 [address] [phone] (Work) 06/21/2023 9:00 AM ELECTRICAL AND INSTRUMENT TECHNICIAN Comprehensive Visit Department of Ophthalmology in [place], [place] [address] [place] [address] Brigid Hernandez M.D. [address] [place] [address] 07/17/2023 12:30 PM ELECTRICAL AND INSTRUMENT TECHNICIAN Infusion Department of Infusion Therapy in [place], [place] [address] [place] [phone] Kamryn Alvarado APRN, C.N.P. [address] [place] [phone] 09/04/2023 7:00 AM CDT Appointment Department of Laboratory Medicine in [place], [place] [address] [place] [phone] Wellington Valdivia M.D. [address] [place] [phone] documented as of this encounter Procedures Procedure Name Priority Date/Time Associated Diagnosis Comments CBC WITH DIFFERENTIAL, B Routine 07/10/2022 9:27 AM ELECTRICAL AND INSTRUMENT TECHNICIAN Anemia BASIC METABOLIC PANEL, S/P Routine 07/10/2022 9:27 AM ELECTRICAL AND INSTRUMENT TECHNICIAN Hyperkalemia IRON AND TOT IRON-BINDING CAPACITY, S/P Routine 07/10/2022 9:26 AM ELECTRICAL AND INSTRUMENT TECHNICIAN Anemia FERRITIN, S Routine 07/10/2022 9:26 AM ELECTRICAL AND INSTRUMENT TECHNICIAN Anemia documented in this encounter Results * Basic Metabolic Panel (07/10/2022 9:27 AM ELECTRICAL AND INSTRUMENT TECHNICIAN) Potassium, P 5.0 3.6 - 5.2 mmol/L 07/10/2022 10:38 AM ELECTRICAL AND INSTRUMENT TECHNICIAN AUST Sodium, P 139 135 - 145 mmol/L 07/10/2022 10:38 AM ELECTRICAL AND INSTRUMENT TECHNICIAN AUST Chloride, P 103 98 - 107 mmol/L 07/10/2022 10:38 AM ELECTRICAL AND INSTRUMENT TECHNICIAN AUST Bicarbonate, P 28 22 - 29 mmol/L 07/10/2022 10:38 AM ELECTRICAL AND INSTRUMENT TECHNICIAN AUST Anion Gap, P 8 7 - 15 07/10/2022 10:38 AM ELECTRICAL AND INSTRUMENT TECHNICIAN [facility] BUN (Blood Urea Nitrogen), P 19 8 - 24 mg/dL 07/10/2022 10:38 AM ELECTRICAL AND INSTRUMENT TECHNICIAN AUST Creatinine 1.09 0.74 - 1.35 mg/dL 07/10/2022 10:38 AM ELECTRICAL AND INSTRUMENT TECHNICIAN AUST Estimated GFR (eGFR) 71 >=60 mL/min/BSA 07/10/2022 10:38 AM ELECTRICAL AND INSTRUMENT TECHNICIAN AUST Comment: Estimated GFR calculated using the 2020 CKD_EPI creatinine equation. Calcium, Total, P 9.4 8.8 - 10.2 mg/dL 07/10/2022 10:38 AM ELECTRICAL AND INSTRUMENT TECHNICIAN AUST Glucose, P 106 70 - 140 mg/dL 07/10/2022 10:38 AM ELECTRICAL AND INSTRUMENT TECHNICIAN AUST Blood (Blood, Venous) 07/10/2022 9:27 AM ELECTRICAL AND INSTRUMENT TECHNICIAN 07/10/2022 9:27 AM ELECTRICAL AND INSTRUMENT TECHNICIAN Cooper Scott M.D. LAB BLOOD AD D-ON [facility] [address] [place] [address], [facility] AUST [place] [facility] - [facility] [address] [place] [address] * (ABNORMAL) CBC with Differential, Blood (07/10/2022 9:27 AM ELECTRICAL AND INSTRUMENT TECHNICIAN) Hemoglobin 13.0(L) 13.2 - 16.6 g/dL 07/10/2022 9:43 AM ELECTRICAL AND INSTRUMENT TECHNICIAN AUST Hematocrit 40.9 38.3 - 48.6 % 07/10/2022 9:43 AM ELECTRICAL AND INSTRUMENT TECHNICIAN AUST Erythrocytes 4.42 4.35 - 5.65 x10(12)/L 07/10/2022 9:43 AM ELECTRICAL AND INSTRUMENT TECHNICIAN A[facility] MCV 92.5 78.2 - 97.9 fL 07/10/2022 9:43 AM ELECTRICAL AND INSTRUMENT TECHNICIAN AUST RBC Distrib Width 12.4 11.8 - 14.5 % 07/10/2022 9:43 AM ELECTRICAL AND INSTRUMENT TECHNICIAN AUST Platelet Count 159 135 - 317 x10(9)/L 07/10/2022 9:43 AM ELECTRICAL AND INSTRUMENT TECHNICIAN AUST Leukocytes 4.3 3.4 - 9.6 x10(9)/L 07/10/2022 9:43 AM ELECTRICAL AND INSTRUMENT TECHNICIAN AUST Neutrophils 2.08 1.56 - 6.45 x10(9)/L 07/10/2022 9:43 AM ELECTRICAL AND INSTRUMENT TECHNICIAN AUST Lymphocytes 1.49 0.95 - 3.07 x10(9)/L 07/10/2022 9:43 AM ELECTRICAL AND INSTRUMENT TECHNICIAN AUST Monocytes 0.56 0.26 - 0.81 x10(9)/L 07/10/2022 9:43 AM ELECTRICAL AND INSTRUMENT TECHNICIAN AUST Eosinophils 0.14 0.03 - 0.48 x10(9)/L 07/10/2022 9:43 AM ELECTRICAL AND INSTRUMENT TECHNICIAN AUST Basophils <0.03 0.01 - 0.08 x10(9)/L 07/10/2022 9:43 AM ELECTRICAL AND INSTRUMENT TECHNICIAN AUST Blood (Blood, Venous) 07/10/2022 9:27 AM ELECTRICAL AND INSTRUMENT TECHNICIAN 07/10/2022 9:27 AM ELECTRICAL AND INSTRUMENT TECHNICIAN Cooper Scott M.D. LAB BLOOD AD D-ON [facility] [address] [place] [address], [facility] - [facility] [address] [place] [address] * Iron and Total Iron-Binding Capacity (07/10/2022 9:26 AM ELECTRICAL AND INSTRUMENT TECHNICIAN) Iron 73 50 - 150 mcg/dL 07/10/2022 11:49 AM ELECTRICAL AND INSTRUMENT TECHNICIAN AUST Total Iron Binding Capacity 310 250 - 400 mcg/dL 07/10/2022 11:49 AM ELECTRICAL AND INSTRUMENT TECHNICIAN AUST Percent Saturation 24 14 - 50 % 07/10/2022 11:49 AM ELECTRICAL AND INSTRUMENT TECHNICIAN AUST Blood (Blood, Venous) 07/10/2022 9:26 AM ELECTRICAL AND INSTRUMENT TECHNICIAN 07/10/2022 9:27 AM ELECTRICAL AND INSTRUMENT TECHNICIAN Cooper Scott M.D. LAB BLOOD AD D-ON Performing Organization Address [facility] de Phone Number [facility] [address] [place] [address], [facility] - [facility] [address] [place] [address] * Ferritin (07/10/2022 9:26 AM ELECTRICAL AND INSTRUMENT TECHNICIAN) Ferritin, S 52 31 - 409 mcg/L 07/10/2022 10:45 AM ELECTRICAL AND INSTRUMENT TECHNICIAN AUST Comment: Biotin has been identified by the environment friendly landscape designer as a potential interfering substance. Higher concentrations of biotin may be found in multivitamins, hair/nail supplements, and workout supplements. If the result does not match clinical observations, repeat testing after patient refrains from the use of supplements for at least 12 hours. Blood (Blood, Venous) 07/10/2022 9:26 AM ELECTRICAL AND INSTRUMENT TECHNICIAN 07/10/2022 9:27 AM ELECTRICAL AND INSTRUMENT TECHNICIAN Cooper Scott M.D. LAB BLOOD AD D-ON Performing Organization Address [facility] Co de Phone Number [facility] [address] [place] [address], [facility] - [facility] [address] [place] [address] documented in this encounter Visit Diagnoses Diagnosis Anemia Hyperkalemia documented in this encounter Additional Health Concerns Assessment Noted Time PHQ-9 Depression Total Score: 0 04/09/20 22 9:36 AM ELECTRICAL AND INSTRUMENT TECHNICIAN documented as of this encounter Care Teams Barrel Header Relationship Specialty Start Date End Date Cooper Jolyl M.B.B.S., M.D. [address] [place] [phone] PCP - General Internal Medicine 02/05/22 documented as of this encounter
--- OUTSIDE RECORDS SUMMARY | 2023-06-19 09:30 | XMS_ITS | Encounter Summary ---
Author Name Unknown Organization [facility] Address [address] [place] [address] Care Team Providers Care Senior Physician Name Role Phone Cooper Jolly M.D. Primary Care Provid er Encounter Details Date Type Department Care Team (Latest Contact Info) Description 08/23/2022 11:25 AM CDT - 08/23/2022 12:30 PM CDT Hospital Encounter Department of Laboratory Medicine in [place], [place] [address] [place] [phone] Wellington Valdivia M.D. [address] [place] [phone] Cardiomyopathy (HCC); Hyperlipidemia Mixed Discharge Disposition: Home or Self [...] any clubs o r organizations such as religious groups, unions, fraternal or athletic groups, or [...] Answer Date Recorded PHQ-2 Score 0 04/09/2022 [facility] [place] of Occupat ional Health - Occupational Stress [...] Sex Assigned at Male 04/29/2021 7:37 PM PSYCHIATRIC AIDE INSTRUCTOR Gender Identity Male 10/01/2020 9:14 PM CDT [...] st Contact Info) Description 06/21/2023 8:30 AM PSYCHIATRIC AIDE INSTRUCTOR Ancillary Procedure Department of Ophthalmology in [place], [place] [address] [place] [address] Alanis Barker O.D. [address] [place] [phone] (Work) 06/21/2023 9:00 AM PSYCHIATRIC AIDE INSTRUCTOR Comprehensive Visit Department of Ophthalmology in [place], [place] [address] [place] [address] Brigid Hernandez M.D. [address] [place] [phone] 07/17/2023 12:30 PM PSYCHIATRIC AIDE INSTRUCTOR Infusion Department of Infusion Therapy in [place], [place] [address] [place], [place] [phone] Kamryn Alvarado, OPERATING ROOM NURSE, C.N.P. [address] [place] [phone] 09/04/2023 7:00 AM CDT Appointment Department of Laboratory Medicine in [place], [place] [address] [place] [phone] Wellington Valdivia M.D. [address] [place] [address] documented as of this encounter Procedures Procedure Name Priority Date/Time Associated Diagnosis Comments LIPID PANEL, S Routine 08/23/2022 11:35 AM CDT Hyperlipidemia Mixed APOLIPOPROTEIN B, P Routine 08/23/2022 1 1:35 AM CDT Hyperlipidemia Mixed LIPOPROTEIN (A), S/P Routine 08/23/2022 11:35 AM CDT Hyperlipidemia Mixed CBC WITHOUT DIFFERENTIAL, B Routine 08/23/2022 11:35 AM CDT Cardiomyopathy (HCC) BASIC METABOLIC PANEL, S/P Routine 08/23/2022 11:35 AM CDT Cardiomyopathy (HCC) documented in this encounter Results * Apolipoprotein B (08/23/2022 11:35 AM CDT) Pathologist [facility] Apolipoprotein B, S 90 mg/dL 08/24 2:22 PM CDT DTL Comment: ----REFERENCE VALUE---- Desirable: <90 Above Desirable: 90-99 Borderline high: 100-119 High: 120-139 Very high: > or = 140 Blood (Blood, Venous) 08/23/2022 11:35 AM CDT 08/24/2022 8:05 AM CDT Wellington Valdivia M.D. LAB BLOOD NON ADD -ON [facility] [address] [place] [address], [facility] [address] [place] [address] * (ABNORMAL) Lipoprotein (a) (08/23/2022 11:35 AM CDT) Pathologist [facility] Lipoprotein (a) 699(H) <75 nmol/L 08/24/2022 2:22 PM CDT DTL Comment: Lp(a) confers increased risk for coronary disease and aortic stenosis starting at concentrations of 75 nmol/L and greater. ?? Lp(a) >=125 nmol/L is considered a risk-enhancing factor for cardiovascular disease by several professional societies. ??Clinician-patient discussion of therapeutic strategy is warranted. ----ADDITIONAL INFORMATION---- Please notice that Lp(a) values are reported in molar units (nmol/L). ??These units are recommended by professional society guidelines and expert opinion statements. ??Measured results and risk thresholds are higher than those generated using mass units (mg/dL). Cardiovascular risk increases starting at 75 nmol/L. Lp(a) >=125 nmol/L is considered a risk enhancing factor by the [place] [employer]. This test has been modified from the box sealing machine operator's instructions. Its performance characteristics were determined by [facility] in a manner consistent with CLIA requirements. This test has not been cleared or approved by the U.S. Food and Drug Administration. Blood (Blood, Venous) 08/23/2022 11:35 AM CDT 08/24/2022 8:05 AM CDT Wellington Valdivia M.D. LAB BLOOD ADD-ON [facility] [address] [place] [address], [place] [facility] [address] [place] [address] * Lipid Panel (08/23/2022 11:35 AM CDT) Triglycerides 91 mg/dL 08/23/2022 12:53 PM CDT AUST Comment: ----REFERENCE VALUE---- Normal: <150 mg/dL Borderline High: 150-199 mg/dL High: 200-499 mg/dL Very High: > or =500 mg/dL Cholesterol, Total 161 mg/dL 2022 12:53 PM CDT AUST Comment: ----REFERENCE VALUE---- Desirable: < 200 mg/dL Borderline High: 200 - 239 mg/dL High: > or = 240 mg/dL Cholesterol, LDL, Calculated 92 mg/dL 08/23/2022 12:53 PM CDT AUST Comment: ----REFERENCE VALUE---- Desirable: <100 mg/dL Above Desirable: 100-129 mg/dL Borderline High: 130-159 mg/dL High: 160-189 mg/dL Very High: >=190 mg/dL ----ADDITIONAL INFORMATION---- LDL cholesterol calculated using the Stacy/NIH equation. Cholesterol, HDL 52 >=40 mg/dL 08/24/19 12:53 PM CDT AUST Cholesterol, Non-HDL, Calculated 109 mg/dL 08/23/2022 12:53 PM CDT AUST Comment: ----REFERENCE VALUE---- Desirable: <130 mg/dL Above Desirable: 130-159 mg/dL Borderline High: 160-189 mg/dL High: 190-219 mg/dL Very High: > or =220 mg/dL Fasting (8 HR or more) n 08/23/2022 11:40 AM CDT AUST Blood (Blood, Venous) 08/23/2022 11:35 AM CDT 08/23/2022 11:40 AM CDT Wellington Valdivia M.D. LAB BLOOD ADD-ON [facility] [address] [place] [address], [facility] AUST [facility] [address] [place] [address] * (ABNORMAL) CBC without Differential (08/23/2022 11:35 AM CDT) Hemoglobin 12.7(L) 13.2 - 16.6 g/dL 08/23/2022 12:22 PM CDT AUST Hematocrit 39.9 38.3 - 48.6 % 08/23/2022 12:22 PM CDT AUST Erythrocytes 4.28(L) 4.35 - 5.65 x10(12)/L 08/23/2022 12:22 PM CDT AUST MCV 93.2 78.2 - 97.9 fL 08/23/2022 12:22 PM CDT AUST RBC Distrib Width 12.9 11.8 - 14.5 % 08/23/2022 12:22 PM CDT AUST Platelet Count 176 135 - 317 x10(9)/L 08/23/2022 12:22 PM CDT AUST Leukocytes 6.0 3.4 - 9.6 x10(9)/L 08/23/2022 12:22 PM CDT AUST Blood (Blood, Venous) 08/23/2022 11:35 AM CDT 08/23/2022 11:40 AM CDT Wellington Valdivia M.D. LAB BLOOD ADD-ON [facility] [address] [place] [address], [facility] AUST [facility] [address] [place] [address] * (ABNORMAL) Basic Metabolic Panel (08/23/2022 11:35 AM CDT) Potassium, P 5.2 3.6 - 5.2 mmol/L 08/23/2022 12:53 PM CDT AUST Sodium, P 137 135 - 145 mmol/L 08/23/2022 12:53 PM CDT AUST Chloride, P 103 98 - 107 mmol/L 08/23/2022 12:53 PM CDT AUST Bicarbonate, P 26 22 - 29 mmol/L 08/23/2022 12:53 PM CDT AUST Anion Gap, P 8 7 - 15 08/23/2022 12:53 PM CDT AUST BUN (Blood Urea Nitrogen), P 26(H) 8 - 24 mg/dL 08/23/2022 12:53 PM CDT AUST Creatinine 1.15 0.74 - 1.35 mg/dL 08/23/2022 12:53 PM CDT AUST Estimated GFR (eGFR) 67 >=60 mL/min/BSA 08/23/2022 12:53 PM CDT AUST Comment: Estimated GFR calculated using the 2020 CKD_EPI creatinine equation. Calcium, Total, P 9.3 8.8 - 10.2 mg/dL 08/23/2022 12:53 PM CDT AUST Glucose, P 95 70 - 140 mg/dL 08/23/2022 12:53 PM CDT AUST Blood (Blood, Venous) 08/23/2022 11:35 AM CDT 08/23/2022 11:40 AM CDT Wellington Valdivia M.D. LAB BLOOD ADD-ON [facility] [address] [place] [address], [facility] AUST [facility] [address] [place] [address] documented in this encounter Visit Diagnoses Diagnosis Cardiomyopathy (HCC) Hyperlipidemia Mixed documented in this encounter Additional Health Concerns Assessment Noted Time PHQ-9 Depression Total Score: 0 04/09/20 22 9:36 AM PSYCHIATRIC AIDE INSTRUCTOR documented as of this encounter Care Teams Senior Physician Relationship Specialty Start Date End Date Cooper Jolly M.B.B.S., MHanna. [address] [phone] PCP - General Internal Medicine 02/05/22 documented as of this encounter
--- OUTSIDE RECORDS SUMMARY | 2023-06-19 09:30 | XMS_ITS | Encounter Summary ---
Author Name Unknown Organization [facility] Address [address] [place] [address] Care Team Providers Care Heritage Consultant Name Role Phone Cooper Jolly M.D. 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 [address] [place] [address] [facility] Region Referral ID Status Reason Start Date Expiration Date Visits Re quested Visits Authorized [id number] Closed 09/07/2021 09/07/2022 1 1 Encounter Details Date Type Department Care Team (Latest Contact Info) Description 08/23/2022 12:31 PM CDT - 08/23/2022 1:23 PM CDT Hospital Encounter Department of Cardiovascular Diseases in [place], [place] [address] [phone] [place] Valdivia M.D. [address] [phone] Replacement Aortic Valve Tissue; Coronary Artery 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 Pectoris Discharge Disposition: Home or Self Care Social [...] often do you attend chur ch or lutheran services? More than 4 times per year 04/09/2022 Do you belong to any clubs o r organizations such as alevism groups, unions, fraternal or athletic groups, or [...] Answer Date Recorded PHQ-2 Score 0 04/09/2022 [facility] - Occupational [...] Sex Assigned at Male 04/29/2021 7:37 PM WEB PROGRAMMER Gender Identity Male 10/01/2020 9:14 PM CDT [...] st Contact Info) Description 06/21/2023 8:30 AM WEB PROGRAMMER Ancillary Procedure Department of Ophthalmology in [place], [place] [address] [place] [address] Alanis Barker O.D. [address] [phone] (Work) 06/21/2023 9:00 AM WEB PROGRAMMER Comprehensive Visit Department of Ophthalmology in [place], [place] [address] [place] [address] Brigid Hernandez M.D. [address] [place] [address] 07/17/2023 12:30 PM WEB PROGRAMMER Infusion Department of Infusion Therapy in [place], [place] [address] [phone] Kamryn Alvarado APRN, C.N.P. [address] [phone] 09/04/2023 7:00 AM CDT Appointment Department of Laboratory Medicine in [place], [place] [address] [phone] [place] Valdivia M.D. 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 documented in this encounter Results * (TTE) 2D ECHO DOPPLER COLOR (08/23/2022 1:35 PM CDT) Ejection Fraction 57 MC CV EIMS Mid-Ascending Aorta 41 MC CV EIMS LV Mass Index 109 MC CV EIMS LV End-Diastolic Diameter 58 MC CV EIMS LV End-Systolic Diameter 40 MC CV EIMS MV E Velocity 0.8 MC CV EIMS MV A Velocity 1 MC CV EIMS MV E/A 0.8 MC CV EIMS MV e' Velocity Lateral 0.17 MC CV EIMS MV E/e' Lateral 4.7 MC CV EIMS Left ventricular stroke volume index 58 MC CV EIMS Cardiac Output 9.11 MC CV EIMS Cardiac Index 3.78 MC CV EIMS LV Interventricular Septal Wall Thickness 12 MC CV EIMS LV Posterior Wall Thickness 10 MC CV EIMS LV Relative Wall Thickness 34 MC CV EIMS Tricuspid Annular S? 0.13 MC CV EIMS TR Vmax 2.17 MC CV EIMS RA Pressure 5 MC CV EIMS RV Systolic Pressure 24 MC CV EIMS AV mean gradient 17 MC CV EIMS Aortic valve area 2.16 MC CV EIMS Aortic Valve Area Index 0.89 MC CV EIMS Aortic Valve Dimensionless Index 0.41 MC CV EIMS LA Volume Index 43 MC CV EIMS Aortic Valve Systolic Peak Velocity 2.7 MC CV EIMS Anatomical Region Laterality Modality Echocardiography 08/23/2022 12:4 0 PM CDT Impressions 08/24/2022 12:41 PM CDT LEFT VENTRICLE:Mildly enlarged left ventricular chamber size. Normal left ventricular geometry. Calculated 2-D linear left ventricular ejection fraction 57%. No regional wall motion abnormalities. RIGHT VENTRICLE:Normal right ventricular chamber size. Normal right ventricular systolic function. Estimated right ventricular systolic pressure 24 mmHg (right atrial pressure of 5 mmHg). ATRIA:Moderately enlarged left atrial size. Left atrial volume index 43 ml/m2. Enlarged right atrial size by visual estimate. CARDIAC VALVES:Normal aortic valve tissue prosthesis. Aortic valve prosthetic orifice area by Doppler: 2.16 cm2 No aortic valve periprosthetic regurgitation. Thickened mitral valve. Trivial mitral valve regurgitation. Normal pulmonary valve. Normal pulmonary valve systolic velocities. Trivial pulmonary valve regurgitation. Normal tricuspid valve. Trivial tricuspid valve regurgitation. OTHER ECHO FINDINGS:Normal inferior vena cava size with normal inspiratory collapse (>50%). Normal mid ascending aorta diameter of 41 mm. Upper limit of normal of the mid ascending aorta, for age, sex and BSA is 44 mm. No abdominal aortic aneurysm. Normal abdominal aorta Doppler flow pattern. No atrial level shunt by color flow imaging. No intracardiac mass or thrombus, but the left atrial appendage cannot be visualized adequately with transthoracic echo to exclude thrombus in this location. No ?? pericardial effusion. For the complete report, see the Order-Level Documents. Narrative 08/24/2022 12:41 PM CDT For the complete report, see the Order-Level Documents. Hemodynamics Heart Rate: 67 BPM Blood Pressure: 151 / 83 mmHg ECG: Sinus rhythm with ectopics Final Impressions 1. Status post 29mm Amber-Felipe PERIMOUNT Magna/Magna Ease pericardial aortic valve [...] regurgitation is noted on these current images. ??Side by side comparison of images performed. Procedure Note Michael Hill M.D. - 08/24/2022 For the complete report, see the Order-Level Documents. Hemodynamics Heart Rate: 67 BPM Blood Pressure: 151 / 83 mmHg ECG: Sinus rhythm with ectopics Final Impressions 1. 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 2. Aortic valve prosthesis systolic mean Doppler gradient 17 mmHg. 3. No aortic valve prosthetic regurgitation. No aortic valveperiprosthetic regurgitation. 4. Mildly enlarged left ventricular chamber size. 5. Calculated 2-D linear left ventricular ejection fraction 57%. 6. No regional wall motion abnormalities. 7. Normal left ventricular filling pressure. 8. Normal right ventricular chamber size with normal systolic function. 9. Estimated right ventricular systolic pressure 24 mmHg (right atrialpressure of 5 mmHg). 10. Normal inferior vena cava size with normal inspiratory collapse(>50%). 11. Normal mid ascending aorta diameter of 41 mm. 12. Compared to the report of 2021 the following changes haveoccurred: No aortic valve prosthetic regurgitation is noted on thesecurrent images. Side by side comparison of images performed. Findings LEFT VENTRICLE:Mildly enlarged left ventricular chamber size. Normal leftventricular geometry. Calculated 2-D linear left ventricular ejectionfraction 57%. No regional wall motion abnormalities. RIGHT VENTRICLE:Normal right ventricular chamber size. Normal rightventricular systolic function. Estimated right ventricular systolicpressure 24 mmHg (right atrial pressure of 5 mmHg). ATRIA:Moderately enlarged left atrial size. Left atrial volume index 43ml/m2. Enlarged right atrial size by visual estimate. CARDIAC VALVES:Normal aortic valve tissue prosthesis. Aortic valveprosthetic orifice area by Doppler: 2.16 cm2 No aortic valveperiprosthetic regurgitation. Thickened mitral valve. Trivial mitral valveregurgitation. Normal pulmonary valve. Normal pulmonary valve systolicvelocities. Trivial pulmonary valve regurgitation. Normal tricuspid valve.Trivial tricuspid valve regurgitation. OTHER ECHO FINDINGS:Normal inferior vena cava size with normal inspiratorycollapse (>50%). Normal mid ascending aorta diameter of 41 mm. Upper limitof normal of the mid ascending aorta, for age, sex and BSA is 44 mm. Noabdominal aortic aneurysm. Normal abdominal aorta Doppler flow pattern. Noatrial level shunt by color flow imaging. No intracardiac mass orthrombus, but the left atrial appendage cannot be visualized adequatelywith transthoracic echo to exclude thrombus in this location. Nopericardial effusion. For the complete report, see the Order-Level Documents. [place] Valdivia M.D. 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 [address] [phone] PCP - General Internal Medicine 02/05/22 documented as of this encounter
--- OUTSIDE RECORDS SUMMARY | 2023-06-19 09:30 | XMS_ITS | Encounter Summary ---
Author Name Unknown Organization [facility] Address [address] [place] [address] Care Team Providers Care Welfare Director Name Role Phone Cooper Jolly M.D. Primary Care Provid er Reason for Referral * Outpatient (Routine) - Closed Specialty Diagnoses / Procedures Referred By Contac t Referred To Contact Diagnoses Ectopy Ventricular Procedures ECG Heart rhythm monitor (Holter) [place] Valdivia M.D. [address] [place] [phone] [facility] Referral ID Status Reason Start Date Expiration Date Visits Re quested Visits Authorized [id number] Closed 09/07/2021 09/07/2022 1 1 Reason for Visit * Outpatient (Routine) - Closed Specialty Diagnoses / Procedures Referred By Swetha malagon Referred To Contact Diagnoses Ectopy Ventricular Procedures ECG Heart rhythm monitor (Holter) [place] Valdivia M.D. [address] [place] [address] [facility] Referral ID Status Reason Start Date Expiration Date Visits Re quested Visits Authorized [id number] Closed 09/07/2021 09/07/2022 1 1 Encounter Details Date Type Department Care Team (Latest Contact Info) Description 08/23/2022 1:24 PM CDT - 08/23/2022 11:59 PM CDT Hospital Encounter Department of Cardiovascular Diseases in [place], [place] [address] [phone] [place] Valdivia M.D. [address] [phone] Ectopy Ventricular Discharge Disposition: Home or Self [...] often do you attend chur ch or voodoo services? More than 4 times per year 04/09/2022 Do you belong to any clubs o r organizations such as adventist groups, unions, fraternal or athletic groups, or [...] Answer Date Recorded PHQ-2 Score 0 04/09/2022 [facility] - Occupational [...] Sex Assigned at Male 04/29/2021 7:37 PM BEAUTICIAN APPRENTICE Gender Identity Male 10/01/2020 9:14 PM CDT [...] st Contact Info) Description 06/21/2023 8:30 AM BEAUTICIAN APPRENTICE Ancillary Procedure Department of Ophthalmology in [place], [place] [address] [place] [address] Alanis Barker O.D. [address] [phone] (Work) 06/21/2023 9:00 AM BEAUTICIAN APPRENTICE Comprehensive Visit Department of Ophthalmology in [place], [place] [address] [place] [address] Brigid Hernandez M.D. [address] [place] [address] 07/17/2023 12:30 PM BEAUTICIAN APPRENTICE Infusion Department of Infusion Therapy in [place], [place] [address] [phone] Kamryn Alvarado, CUT PLUG PACKER, C.N.P. [address] [phone] 09/04/2023 7:00 AM CDT Appointment Department of Laboratory Medicine in [place], [place] [address] [phone] [place] Valdivia M.D. [address] [place] [phone] documented as of this encounter Procedures Procedure Name Priority Date/Time Associated Diagnosis Comments HOLTER MONITOR - IN CLINIC STUDENT FINANCIAL SERVICES COUNSELOR Routine 08/24/2022 2:34 PM CDT Ectopy Ventricular documented in this encounter Results * HOLTER MONITOR - IN CLINIC STUDENT FINANCIAL SERVICES COUNSELOR (08/24/2022 2:34 PM CDT) Min Heart Rate 42 bpm INFOB IONIC MOME Max Heart Rate 107 bpm INFOB IONIC MOME Mean Heart Rate 68 bpm INFOBIONIC MOME VE Total Beats 3151 count INFOB IONIC MOME VE Percent Beats 3 percent INFOBIONIC MOME SVE Total Beats 91 count INFOBIONIC MOME SVE Percent Beats less than 1 percent INFOBIONIC MOME AF Count 0 count INFOBIONIC MOME AF Duration 0 duration INFOBION IC MOME AF [place] 0 percent INFOBIONIC MOME Symptom Count 0 count INFOBI ONIC MOME 08/23/2022 1:32 PM CDT Narrative INFOBIONIC MOME - 08/28/2022 8:10 AM CDT Rafa 1. The basic rhythm was sinus with intermittent sinus arrhythmia. The total analyzed time was 23h 51m. The heart rate varied from 42 to 107 bpm. The average HR was 68 bpm. 2. Premature ventricular complexes were noted singly, in one couplet, in bigeminy, in trigeminy and in one 3 beat ventricular run with a rate of 62 bpm. There were 3,151 PVCs recorded with a PVC burden of 3%. 3. Premature supraventricular complexes were noted singly and in five 3 to 23 beat atrial runs, maximum rate of 123 bpm. There were 91 PACs recorded with a PAC burden of less than 1%. 4. The patient documented pain with no events noted with which to correlate. Developmental Services Worker: Екатерина Drummond/ Ade Centeno Procedure Note Hal Barry Jr., M.D. - 08/28/2022 Rafa 1. The basic rhythm was sinus with intermittent sinus arrhythmia. Thetotal analyzed time was 23h 51m. The heart rate varied from 42 to 107 bpm.The average HR was 68 bpm. 2. Premature ventricular complexes were noted singly, in one couplet, inbigeminy, in trigeminy and in one 3 beat ventricular run with a rate of 62bpm. There were 3,151 PVCs recorded with a PVC burden of 3%. 3. Premature supraventricular complexes were noted singly and in five 3 to23 beat atrial runs, maximum rate of 123 bpm. There were 91 PACs recordedwith a PAC burden of less than 1%. 4. The patient documented pain with no events noted with which tocorrelate. Developmental Services Worker: Екатерина Drummond/ Ade Centeno [place] Valdivia M.D. CV CARDIAC SERVIC ES PROCEDURES INFOBIONIC MOME NA documented in this encounter Visit Diagnoses Diagnosis Ectopy Ventricular documented in this encounter Additional Health Concerns Assessment Noted Time PHQ-9 Depression Total Score: 0 04/09/20 22 9:36 AM BEAUTICIAN APPRENTICE documented as of this encounter Care Teams Welfare Director Relationship Specialty Start Date End Date Cooper Jolly M.B.B.S., MRakan [address] [phone] PCP - General Internal Medicine 02/05/22 documented as of this encounter
--- OUTSIDE RECORDS SUMMARY | 2023-06-19 09:30 | XMS_ITS | Encounter Summary ---
Author Name Unknown Organization [facility] Address [address] [place] [address] Care Team Providers Care Documentation Clerk Name Role Phone Cooper Jolly M.D. Primary Care Provid er Reason for Visit * Reason Comments Eye Pain Encounter Details Date Type Department Care Team (Latest Contact Info) Description 07/27/2022 10:40 AM FOOD ORDER EXPEDITER Office Visit Department of Ophthalmology in [place], [place] [address] [place] [address] Alanis Barker O.D. [address] [place] [phone] (Work) Floppy Eyelid Syndrome (Primary Dx); Dry Eye Syndrome Bilateral Social History Tobacco Use Types Packs/Day Years [...] How often do you attend chur or spiritism services? More than 4 times [...] Answer Date Recorded PHQ-2 Score 0 04/09/2022 [facility] - Occupational Stress [...] place to sleep or slept in a correction (including now)? No 04/09/2022 Depression Answer Date [...] Sex Assigned at Male 04/29/2021 7:37 PM FOOD ORDER EXPEDITER Gender Identity Male 10/01/2020 9:14 PM CDT Sexual Orientation Straight 10/01/2020 9: 14 PM CDT documented as of this encounter Progress Notes * Alanis Barker O.D. 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 MORELIA with pt. Gave hard eye shield to tape over LE for 1 week trial. If no improvement, he will letme know. If it improves, continue eye shield every night with New Medications Ordered This Visit Medications artificial tears with lanolin (REFRESH P.M.) ophthalmic ointment Sig: Apply 0.5 inches to left eye at bedtime. Dispense: 3 g Refill: 11 Patanol PRN with sx. ORDER EXPEDITER documented in this encounter Plan of Treatment Upcoming Encounters Date Type Department Care Team (Late st Contact Info) Description 06/21/2023 8:30 AM FOOD ORDER EXPEDITER Ancillary Procedure Department of Ophthalmology in [place], [place] [address] [place] [address] Alanis Barker O.D. [address] [phone] (Work) 06/21/2023 9:00 AM FOOD ORDER EXPEDITER Comprehensive Visit Department of Ophthalmology in [place], [place] [address] [place] [address] Brigid Hernandez M.D. [address] [place] [address] 07/17/2023 12:30 PM FOOD ORDER EXPEDITER Infusion Department of Infusion Therapy in [place], [place] [address] [phone] Kamryn Alvarado APRN, C.N.P. [address] [phone] 09/04/2023 7:00 AM CDT Appointment Department of Laboratory Medicine in [place], [place] [address] [phone] [place] Valdiv[place] M.D. [address] [phone] documented as of this encounter Visit Diagnoses Diagnosis Floppy Eyelid Syndrome- Primary Dry Eye Syndrome Bilateral documented in this encounter Additional Health Concerns Assessment Noted Time PHQ-9 Depression Total Score: 0 04/09/20 22 9:36 AM FOOD ORDER EXPEDITER documented as of this encounter Care Teams Documentation Clerk Relationship Specialty Start Date End Date Cooper Jolly M.B.B.S., M.D. [address] [phone] PCP - General Internal Medicine 02/05/22 documented as of this encounter
[2023-06-19] MEDS: PERFLUTREN LIPID MICROSPHERES 2 ML VIAL IV (11:36)
== END 2023-06-19 09:16 | disposition home or self-care (01) ==
LOC: RAD 09:22
PROVIDERS: Visit Provider Chiropractor
DX: I25.9 Chronic ischemic heart disease, unspecified (principal); I51.7 Cardiomegaly; I35.1 Nonrheumatic aortic (valve) insufficiency; I34.0 Nonrheumatic mitral (valve) insufficiency
CPT/HCPCS: 93306; Q9957